=== PATIENT | female | born 1940 | race Caucasian/White ===

== ENCOUNTER → 2016-03-15 | Outpatient (CLI) | payer OTHER ==
[2016-03-15 13:05] LABS: DEFINITIVE VIEW TRANSMISSION; Hematocrit 39.3 % (36.0-46.0); Hemoglobin 12.7 g/dL (12.2-16.2); Mean Corpuscular Hemoglobin 29.7 pg (28.0-32.0); Mean Corpuscular Hgb Conc. 32.2 g/dL (32.0-36.0); Mean Corpuscular Volume 92.3 fL (80.0-100.0); Mean Platelet Volume 9.2 fL (7.4-10.4); Platelet Count (auto) 295 10^3/uL (140-450); Red Cell Distribution Width 15.2 % (11.6-16.0); White Blood Cell 22.4 10^3/uL (4.4-10.8)
[2016-03-15 13:17] LABS: Cholesterol 266 mg/dL (<200); HDL Cholesterol 98 mg/dL (40-59); LDL Cholesterol 160 mg/dL (<100); Triglycerides 150 mg/dL (<150)
[2016-03-15 13:38] LABS: Metamyelocytes % 0; Myelocytes % 0; Promyelocytes % 0; Reactive Lymphocytes 0
[2016-03-15 14:36] LABS: Platelet Estimate Adequate; RBC Morphology Normal
== END | disposition home or self-care (01) ==
LOC: LAB 12:24
PROVIDERS: ATTEND Internal Medicine
DX: Z00.00 Encounter for general adult medical examination without abnormal findings (principal)
CPT/HCPCS: 36415; 80061; 83615; 84443; 85007; 85027

== ENCOUNTER → 2016-03-22 | Outpatient (CLI) | payer OTHER | END | disposition home or self-care (01) | LOC: XY 07:42 | PROVIDERS: ATTEND Internal Medicine | DX: C50.919 Malignant neoplasm of unspecified site of unspecified female breast (principal) | CPT/HCPCS: 78306; A9503 ==

== ENCOUNTER 2016-05-11 19:35 | Emergency (ER) | payer MEDICARE, OTHER ==
[~2016-05-11] VITALS: Ht 165.1 cm; Wt 59.9 kg
[2016-05-12 01:00] LABS: Basophils # (auto) 0.1 uL; Basophils % (auto) 0.2 % (0.0-2.0); DEFINITIVE VIEW TRANSMISSION; Eosinophils # (auto) 0 uL; Hematocrit 42.9 % (36.0-46.0); Hemoglobin 14.2 g/dL (12.2-16.2); Lymphocytes # (auto) 18.3 uL; Lymphocytes % (auto) 54.9 % (10.0-50.0); Mean Corpuscular Hemoglobin 30.4 pg (28.0-32.0); Mean Corpuscular Hgb Conc. 33.2 g/dL (32.0-36.0); Mean Corpuscular Volume 91.8 fL (80.0-100.0); Mean Platelet Volume 9.2 fL (7.4-10.4); Monocytes # (auto) 0.8 uL; Monocytes % (auto) 2.4 % (0.0-12.0); Neutrophils # (auto) 14.2 uL; Neutrophils % (auto) 42.5 % (37.0-80.0); Platelet Count (auto) 319 10^3/uL (140-450); Red Cell Distribution Width 14.4 % (11.6-16.0)
[2016-05-12] MEDS ORDERED: ONDANSETRON HCL 4 MG/2 ML VIAL IV ONE (01:15)
[2016-05-12] MEDS ORDERED: HYDROcodone-ACET 5/325MG TAB PO ONE (01:15)
[2016-05-12 01:18] LABS: Albumin 3.1 g/dL (3.4-5.0); Calcium 8.7 mg/dL (8.5-10.1); Magnesium 1.8 mg/dL (1.6-2.6); Potassium 3.6 mmol/L (3.5-5.1)
[2016-05-12 01:20] LABS: BUN/Creatinine Ratio 17.4
[2016-05-12 01:21] LABS: White Blood Cell 33.3 10^3/uL (4.4-10.8)
[2016-05-12 01:22] LABS: Bilirubin, Total 0.2 mg/dL (0.2-1.0); Total Protein 6.1 g/dL (6.4-8.2)
[2016-05-12] MEDS ORDERED: MORPHINE SULF INJ 2 MG/ML SYRINGE 1ML ONE (01:24)
[2016-05-12] MEDS ORDERED: ONDANSETRON HCL 4 MG/2 ML VIAL ONE (01:24)
[2016-05-12] MEDS ORDERED: MORPHINE SULF INJ 2 MG/ML SYRINGE 1ML IV ONE (01:30)
[2016-05-12] MEDS ORDERED: LEVOFLOXACIN 750MG 150 ML IV ONE (01:45)
[2016-05-12 02:12] LABS: Urine Bilirubin Negative (Negative); Urine Ca Oxalate Crystal FEW (None Seen); Urine Color Yellow (Yellow); Urine Glucose Normal (Normal); Urine Hyaline Cast FEW /lpf (0 - 2); Urine Ketone Negative (Negative); Urine Mucus FEW (None Seen); Urine Nitrite Negative (Negative); Urine RBC 131 /hpf (0 - 4); Urine Squamous Epithelial Cell FEW /hpf (<5); Urine Urobilinogen Normal (Negative); Urine pH 5.5 (5.0-8.0)
[2016-05-12 02:14] LABS: Urine Blood 1+ /uL (Negative)
[2016-05-12] MEDS ORDERED: SODIUM CHLORIDE 0.9% 1,000 ML IV ONE (02:15)
[2016-05-12] MEDS ORDERED: VANCOMYCIN 1GM/250ML D5W 250 ML IV ONE (02:15)
[2016-05-12] MEDS ORDERED: TAMSULOSIN HYDROCHLORIDE 0.4 MG CAP PO ONE (03:00)
[2016-05-12] MEDS ORDERED: METOCLOPRAMIDE HCL 5MG/ml INJ 2ml VIAL IV ONE (03:00)
[2016-05-12] MEDS ORDERED: MORPHINE SULFATE 4 MG/ML SYRG IV ONE (03:15)
[2016-05-12 04:28] VITALS: BP 106/66
== END 2016-05-12 04:30 | disposition home or self-care (01) ==
LOC: ER 19:38
DX: N20.9 Urinary calculus, unspecified (principal); Z88.0 Allergy status to penicillin; Z88.6 Allergy status to analgesic agent; Z88.8 Allergy status to other drugs, medicaments and biological substances; Z87.442 Personal history of urinary calculi; Z90.710 Acquired absence of both cervix and uterus
CPT/HCPCS: 36415; 74176; 80053; 81001; 83605; 83690; 83735; 85025; 87040; 93005; 96365; 96375; 96376; 99285; J1956; J2270; J2405; J2765; J7030

== ENCOUNTER → 2016-05-26 | Outpatient (CLI) | payer OTHER, MEDICARE ==
[~2016-05-26] MED LIST: LEVO500T3 PO; NOR5T PO; PRAV20TA3 PO
== END | disposition home or self-care (01) ==
LOC: LAB 16:49
PROVIDERS: ATTEND Urology
DX: N20.0 Calculus of kidney (principal); N39.0 Urinary tract infection, site not specified
CPT/HCPCS: 87086

== ENCOUNTER → 2016-06-20 | Day surgery (SDC) | payer OTHER ==
[2016-06-17 15:03] LABS: INR 0.94 (0.9-1.15); Partial Thromboplastin Time 25.9 sec (22.64-33.71); Prothrombin Time 10.1 sec (9.37-12.3)
[2016-06-17 15:09] LABS: DEFINITIVE VIEW TRANSMISSION; Hematocrit 39.1 % (36.0-46.0); Hemoglobin 12.9 g/dL (12.2-16.2); Mean Corpuscular Hemoglobin 30.7 pg (28.0-32.0); Mean Corpuscular Hgb Conc. 33.1 g/dL (32.0-36.0); Mean Corpuscular Volume 92.6 fL (80.0-100.0); Mean Platelet Volume 9.9 fL (7.4-10.4); Platelet Count (auto) 313 10^3/uL (140-450); Red Cell Distribution Width 13.8 % (11.6-16.0); White Blood Cell 29.4 10^3/uL (4.4-10.8)
[2016-06-17 15:19] LABS: Metamyelocytes % 0; Myelocytes % 0; Promyelocytes % 0; Reactive Lymphocytes 0
[2016-06-17 16:44] LABS: Platelet Estimate Adequate
[2016-06-17 16:46] LABS: Ovalocytes FEW
[~2016-06-20] VITALS: Ht 165.1 cm; Wt 61.2 kg
[~2016-06-20] MED LIST changes: -LEVO500T3 PO; +MIDAZOLAM HCL 5 MG/ML-1ML VIAL ONE; -NOR5T PO; +POTA20TA53 PO; +SODIUM CHLORIDE LOCK 10 ML ONE; +diphenhdrAMINE HCL 50 MG/1 ML VL ONE; +fentaNYL CITRATE 100 MCG/2 ML VL ONE
[2016-06-20] MEDS: MIDAZOLAM HCL 5 MG/ML-1ML VIAL ONE ×4 (09:54→10:06)
[2016-06-20] MEDS: fentaNYL CITRATE 100 MCG/2 ML VL ONE ×4 (09:54→10:06)
[2016-06-20 11:05] VITALS: BP 121/72
== END | disposition home or self-care (01) ==
LOC: GI 08:19
PROVIDERS: ATTEND Internal Medicine Gastroenterology
DX: Z12.11 Encounter for screening for malignant neoplasm of colon (principal); K63.5 Polyp of colon; K64.8 Other hemorrhoids; Z86.010 Personal history of colon polyps; Z90.49 Acquired absence of other specified parts of digestive tract; Z90.710 Acquired absence of both cervix and uterus
CPT/HCPCS: 36415; 45380; 45385; 85007; 85027; 85610; 85730; J2250

== ENCOUNTER 2016-07-01 08:51 | Inpatient (IN) | payer OTHER ==
[~2016-07-01] VITALS: Ht 165.1 cm; Wt 65.0 kg
[~2016-07-01 08:51] MED LIST changes: -MIDAZOLAM HCL 5 MG/ML-1ML VIAL ONE; -SODIUM CHLORIDE LOCK 10 ML ONE; -diphenhdrAMINE HCL 50 MG/1 ML VL ONE; -fentaNYL CITRATE 100 MCG/2 ML VL ONE
[2016-07-01] MEDS ORDERED: SODIUM CHLORIDE 0.9% 1,000 ML IVB ONE (09:42)
[2016-07-01] MEDS ORDERED: ONDANSETRON HCL 4 MG/2 ML VIAL IV ONE (09:45)
[2016-07-01] MEDS ORDERED: MORPHINE SULFATE 4 MG/ML SYRG IV ONE ×2 (09:45→11:00)
[2016-07-01 10:09] LABS: DEFINITIVE VIEW TRANSMISSION; Hematocrit 40.3 % (36.0-46.0); Hemoglobin 13.2 g/dL (12.2-16.2); Mean Corpuscular Hemoglobin 30.1 pg (28.0-32.0); Mean Corpuscular Hgb Conc. 32.7 g/dL (32.0-36.0); Platelet Count (auto) 359 10^3/uL (140-450); Red Cell Distribution Width 13.7 % (11.6-16.0); White Blood Cell 27.3 10^3/uL (4.4-10.8)
[2016-07-01 10:23] LABS: Albumin 3.2 g/dL (3.4-5.0); BUN/Creatinine Ratio 17.9; Calcium 9.5 mg/dL (8.5-10.1); Potassium 3.3 mmol/L (3.5-5.1)
[2016-07-01 10:26] LABS: Bilirubin, Total 0.2 mg/dL (0.2-1.0); Metamyelocytes % 0; Myelocytes % 0; Promyelocytes % 0; Reactive Lymphocytes 0; Total Protein 6.7 g/dL (6.4-8.2)
[2016-07-01 10:45] LABS: Urine Bilirubin Negative (Negative); Urine Glucose Normal (Normal); Urine Ketone Negative (Negative); Urine Nitrite Negative (Negative); Urine RBC 3871 /hpf (0 - 4); Urine Squamous Epithelial Cell FEW /hpf (<5); Urine Urobilinogen Normal (Negative)
[2016-07-01 10:46] LABS: Urine Blood 3+ /uL (Negative)
[2016-07-01 10:47] LABS: Urine Color Dark Brown (Yellow)
[2016-07-01] MEDS ORDERED: NITROGLYCERIN 0.4 MG SL TAB SL PRN (11:00)
[2016-07-01] MEDS ORDERED: LORazepam 0.5 MG TAB PO PRN (11:00)
[2016-07-01] MEDS ORDERED: ACETAMINOPHEN 500 MG TAB PO PRN (11:00)
[2016-07-01] MEDS ORDERED: cefTRIAXone 1GM/50ML D5W 50 ML IV ONE (11:00)
[2016-07-01] MEDS ORDERED: MORPHINE SULF INJ 2 MG/ML SYRINGE 1ML IV PRN (11:00)
[2016-07-01] MEDS ORDERED: PROCHLORPERAZINE EDISYLATE 5 MG/ML 2ML VIAL IV PRN (11:00)
[2016-07-01] MEDS: SOD CHL 0.9%/ KCL 20MEQ 1,000 ML IV SCH ×2 (11:22→19:20)
[2016-07-01] MEDS ORDERED: SODIUM CHLORIDE 0.9% 1,000 ML IV ONE (12:00)
[2016-07-01] MEDS: HYDROcodone-ACET 5/325MG TAB PO PRN (12:28)
[2016-07-01] MEDS ORDERED: NOR5T PO (13:38)
[2016-07-01 13:45] LABS: Platelet Estimate Adequate
[2016-07-01 13:47] LABS: Ovalocytes FEW
[2016-07-01] MEDS: MORPHINE SULF INJ 2 MG/ML SYRINGE 1ML IV PRN ×2 (15:16→19:56)
[2016-07-01 21:35] VITALS: BP 90/40
[2016-07-01] MEDS: TEMAZEPAM 15 MG CAP PO PRN (22:00)
[2016-07-02] MEDS: SOD CHL 0.9%/ KCL 20MEQ 1,000 ML IV SCH ×3 (00:43→20:20)
[2016-07-02] MEDS: MORPHINE SULF INJ 2 MG/ML SYRINGE 1ML IV PRN ×3 (04:23→14:19)
[2016-07-02 04:43] VITALS: BP 89/53
[2016-07-02 04:59] VITALS: BP 104/39
[2016-07-02 06:39] LABS: DEFINITIVE VIEW TRANSMISSION; Hematocrit 34.9 % (36.0-46.0); Hemoglobin 11.4 g/dL (12.2-16.2); Mean Corpuscular Hemoglobin 30.3 pg (28.0-32.0); Mean Corpuscular Hgb Conc. 32.6 g/dL (32.0-36.0); Mean Corpuscular Volume 92.8 fL (80.0-100.0); Mean Platelet Volume 9.9 fL (7.4-10.4); Platelet Count (auto) 328 10^3/uL (140-450); White Blood Cell 20.5 10^3/uL (4.4-10.8)
[2016-07-02 06:43] LABS: Metamyelocytes % 0; Myelocytes % 0; Promyelocytes % 0; Reactive Lymphocytes 0
[2016-07-02 06:57] LABS: INR 0.93 (0.9-1.15); Partial Thromboplastin Time 25.9 sec (22.64-33.71)
[2016-07-02 06:58] LABS: Albumin 2.5 g/dL (3.4-5.0); BUN/Creatinine Ratio 19.1; Calcium 8.3 mg/dL (8.5-10.1); Potassium 4.3 mmol/L (3.5-5.1)
[2016-07-02 07:01] LABS: Bilirubin, Total 0.3 mg/dL (0.2-1.0); Total Protein 5.5 g/dL (6.4-8.2)
[2016-07-02] MEDS ORDERED: LIDOCAINE 2% JELLY 11ml (GLYDO) ONE (07:01)
[2016-07-02] MEDS ORDERED: IOHEXOL 300 MG/ML 100ML BOTTLE IJ ONE (07:01)
[2016-07-02 07:35] LABS: Platelet Estimate Adequate
[2016-07-02] MEDS ORDERED: fentaNYL CITRATE 100 MCG/2 ML VL ONE (07:40)
[2016-07-02] MEDS ORDERED: DEXAMETHASONE SOD PHOS 10MG/1ML VIAL INJ ONE (07:41)
[2016-07-02] MEDS ORDERED: MIDAZOLAM HCL 1MG/1ML-2 ML VIAL ONE (07:41)
[2016-07-02] MEDS ORDERED: PROPOFOL 10 MG/ML 20 ML IV ONE (07:41)
[2016-07-02] MEDS ORDERED: ONDANSETRON HCL 4 MG/2 ML VIAL ONE (07:41)
[2016-07-02] MEDS ORDERED: KETOROLAC TROMETH 60MG/2ML VIAL IM ONE (07:41)
[2016-07-02] MEDS ORDERED: GLYCOPYRROLATE 0.2 MG/ML 1ML VIAL ONE (07:41)
[2016-07-02] MEDS ORDERED: CLINDAMYCIN 600MG IV 50 ML IV ONE (07:42)
[2016-07-02] MEDS ORDERED: LIDOCAINE HCL 2 %PF INJ 10ML AMP IJ ONE (07:42)
[2016-07-02] MEDS ORDERED: ONDANSETRON HCL 4 MG/2 ML VIAL IV ONE (08:45)
[2016-07-02] MEDS ORDERED: HYDROmorphone HCL 2 MG/ML VL IV PRN (08:45)
[2016-07-02] MEDS: ENOXAPARIN SOD 40 MG/0.4 ML SYRINGE SC SCH (10:15)
[2016-07-02] MEDS: cefTRIAXone 1GM/50ML D5W 50 ML IV SCH (10:15)
[2016-07-02 13:00] VITALS: BP 103/59
[2016-07-02 16:33] VITALS: BP 106/62
[2016-07-02] MEDS: BOOST PLUS 8 ounce PO SCH ×2 (18:16→22:00)
[2016-07-02] MEDS: HYDROcodone-ACET 5/325MG TAB PO PRN (18:57)
[2016-07-02 21:33] VITALS: BP 91/51
[2016-07-02] MEDS: TEMAZEPAM 15 MG CAP PO PRN (22:25)
[2016-07-03] MEDS: HYDROcodone-ACET 5/325MG TAB PO PRN ×3 (01:01→14:30)
[2016-07-03] MEDS: SOD CHL 0.9%/ KCL 20MEQ 1,000 ML IV SCH ×2 (01:01→12:55)
[2016-07-03 05:03] VITALS: BP 99/63
[2016-07-03] MEDS: MORPHINE SULF INJ 2 MG/ML SYRINGE 1ML IV PRN (05:27)
[2016-07-03] MEDS: BOOST PLUS 8 ounce PO SCH ×2 (05:27→12:50)
[2016-07-03 05:28] LABS: DEFINITIVE VIEW TRANSMISSION; Hematocrit 31.5 % (36.0-46.0); Hemoglobin 10.3 g/dL (12.2-16.2); Mean Corpuscular Hemoglobin 30.3 pg (28.0-32.0); Mean Corpuscular Hgb Conc. 32.7 g/dL (32.0-36.0); Mean Corpuscular Volume 92.6 fL (80.0-100.0); Mean Platelet Volume 9.7 fL (7.4-10.4); Platelet Count (auto) 299 10^3/uL (140-450); Red Cell Distribution Width 14.4 % (11.6-16.0)
[2016-07-03 05:47] LABS: Albumin 2.2 g/dL (3.4-5.0); Calcium 8.3 mg/dL (8.5-10.1); Potassium 4.5 mmol/L (3.5-5.1)
[2016-07-03 05:50] LABS: Bilirubin, Total 0.2 mg/dL (0.2-1.0); Total Protein 4.8 g/dL (6.4-8.2)
[2016-07-03 05:52] LABS: Metamyelocytes % 0; Myelocytes % 0; Promyelocytes % 0; Reactive Lymphocytes 0
[2016-07-03 07:17] LABS: Platelet Estimate Adequate
[2016-07-03 07:30] VITALS: BP 109/66
[2016-07-03] MEDS: ENOXAPARIN SOD 40 MG/0.4 ML SYRINGE SC SCH (09:07)
[2016-07-03] MEDS: cefTRIAXone 1GM/50ML D5W 50 ML IV SCH (09:07)
[2016-07-03 10:00] VITALS: BP 109/66
[2016-07-03 13:00] VITALS: BP 104/51
[2016-07-05] MEDS ORDERED: CEPH250C PO (13:28)
== END 2016-07-03 15:15 | disposition home or self-care (01) | DRG 693 ==
LOC: ER 08:56 → TELE 08:57 → TELE-WESTW 12:55
PROVIDERS: ADMIT Internal Medicine; ATTEND Internal Medicine
PROC: 0T768DZ Dilation of Right Ureter with Intraluminal Device, Via Natural or Artificial Opening Endoscopic (ICD-10-PCS; principal; 2016-07-02 07:48)
DX: N13.2 Hydronephrosis with renal and ureteral calculous obstruction (principal); E43 Unspecified severe protein-calorie malnutrition; N39.0 Urinary tract infection, site not specified; Z96.0 Presence of urogenital implants; Z68.23 Body mass index [BMI] 23.0-23.9, adult; Z80.0 Family history of malignant neoplasm of digestive organs; Z80.41 Family history of malignant neoplasm of ovary; Z82.49 Family history of ischemic heart disease and other diseases of the circulatory system; Z85.3 Personal history of malignant neoplasm of breast; Z85.6 Personal history of leukemia; Z86.010 Personal history of colon polyps; Z88.6 Allergy status to analgesic agent; Z88.0 Allergy status to penicillin; Z90.710 Acquired absence of both cervix and uterus; Z90.89 Acquired absence of other organs; Z90.49 Acquired absence of other specified parts of digestive tract; Z79.899 Other long term (current) drug therapy
CPT/HCPCS: 36415; 71010; 74000; 74176; 76000; 76775; 80053; 81001; 83605; 85007; 85027; 85610; 85730; 87040; 87086; 93005; 94761; 96361; 96374; 96375; J0696; J1100; J1885; J2250; J2405; J2704; J3490

== ENCOUNTER 2016-07-07 07:34 | Day surgery (SDC) | payer OTHER ==
[2016-07-05 16:48] LABS: Calcium 8.9 mg/dL (8.5-10.1); Potassium 3.3 mmol/L (3.5-5.1)
[2016-07-05 16:51] LABS: BUN/Creatinine Ratio 17.5; Bilirubin, Total 0.2 mg/dL (0.2-1.0); Total Protein 6.2 g/dL (6.4-8.2)
[2016-07-05 16:53] LABS: INR 0.97 (0.9-1.15); Partial Thromboplastin Time 26.3 sec (22.64-33.71); Prothrombin Time 10.5 sec (9.37-12.3)
[2016-07-05 16:59] LABS: Urine Bilirubin Negative (Negative); Urine Color Red (Yellow); Urine Glucose Normal (Normal); Urine Ketone Negative (Negative); Urine Mucus FEW (None Seen); Urine Nitrite Negative (Negative); Urine RBC 2245 /hpf (0 - 4); Urine Urobilinogen Normal (Negative)
[2016-07-05 17:06] LABS: DEFINITIVE VIEW TRANSMISSION; Hematocrit 38.6 % (36.0-46.0); Hemoglobin 12.7 g/dL (12.2-16.2); Mean Corpuscular Hemoglobin 30.4 pg (28.0-32.0); Mean Corpuscular Volume 92.3 fL (80.0-100.0); Mean Platelet Volume 10.3 fL (7.4-10.4); Platelet Count (auto) 395 10^3/uL (140-450); Red Cell Distribution Width 14.1 % (11.6-16.0); White Blood Cell 22.4 10^3/uL (4.4-10.8)
[2016-07-05 17:13] LABS: Metamyelocytes % 0; Myelocytes % 0; Promyelocytes % 0; Reactive Lymphocytes 0
[2016-07-05 17:26] LABS: Urine Blood 3+ /uL (Negative)
[2016-07-05 18:08] LABS: Platelet Estimate Adequate
[~2016-07-07] VITALS: Ht 165.1 cm; Wt 61.2 kg
[~2016-07-07 07:34] MED LIST changes: +CEPH250C PO; +HYDR-4663 PO
[2016-07-07] MEDS ORDERED: CIPROFLOXACIN 400MG/200ML 200 ML IV ONE (08:34)
[2016-07-07] MEDS ORDERED: IOHEXOL 300 MG/ML 100ML BOTTLE IJ ONE (09:34)
[2016-07-07] MEDS ORDERED: PROPOFOL 10 MG/ML 20 ML IV ONE (09:45)
[2016-07-07] MEDS ORDERED: MIDAZOLAM HCL 1MG/1ML-2 ML VIAL ONE (09:45)
[2016-07-07] MEDS ORDERED: fentaNYL CITRATE 100 MCG/2 ML VL ONE (09:45)
[2016-07-07] MEDS ORDERED: ePHEDrine SULFATE 50 MG/ML AMP IV PRN (11:45)
[2016-07-07] MEDS ORDERED: hydrALAZINE HCL 20 MG/ML VL IV PRN (11:45)
[2016-07-07] MEDS ORDERED: ONDANSETRON HCL 4 MG/2 ML VIAL IV ONE (11:45)
[2016-07-07] MEDS: MORPHINE SULF INJ 2 MG/ML SYRINGE 1ML IV PRN ×5 (11:49→13:11)
[2016-07-07 13:40] VITALS: BP 120/71
== END 2016-07-07 13:40 | disposition home or self-care (01) ==
LOC: SUR 07:34
PROVIDERS: ATTEND Urology
DX: N20.1 Calculus of ureter (principal); C50.919 Malignant neoplasm of unspecified site of unspecified female breast; Z90.710 Acquired absence of both cervix and uterus; Z90.49 Acquired absence of other specified parts of digestive tract
CPT/HCPCS: 36415; 50590; 52356; 74000; 80053; 81001; 85007; 85027; 85610; 85730; 88300; C1769; C2617; J0744; J2250; J2270; J2704; J3010; J7030; Q9967

== ENCOUNTER → 2016-07-26 | Outpatient (CLI) | payer OTHER ==
[~2016-07-26] MED LIST changes: -HYDR-4663 PO; +NOR5T PO
[2016-07-26 10:11] LABS: DEFINITIVE VIEW TRANSMISSION; Hemoglobin 12.8 g/dL (12.2-16.2); Mean Corpuscular Hemoglobin 30.2 pg (28.0-32.0); Mean Corpuscular Hgb Conc. 32.9 g/dL (32.0-36.0); Mean Corpuscular Volume 91.7 fL (80.0-100.0); Mean Platelet Volume 9.7 fL (7.4-10.4); Platelet Count (auto) 405 10^3/uL (140-450); Red Cell Distribution Width 14.4 % (11.6-16.0); White Blood Cell 26.2 10^3/uL (4.4-10.8)
[2016-07-26 10:17] LABS: Urine Color Brown (Yellow); Urine Glucose TRACE mg/dL (Normal); Urine Ketone Negative (Negative); Urine Mucus FEW (None Seen); Urine RBC 2288 /hpf (0 - 4); Urine Squamous Epithelial Cell FEW /hpf (<5)
[2016-07-26 10:24] LABS: Metamyelocytes % 0; Myelocytes % 0; Promyelocytes % 0; Reactive Lymphocytes 0
[2016-07-26 10:56] LABS: Urine Bilirubin 2+ (Negative); Urine Blood 2+ /uL (Negative); Urine Nitrite POSITIVE (Negative)
[2016-07-26 11:21] LABS: Platelet Estimate Adequate; RBC Morphology Normal
== END | disposition home or self-care (01) ==
LOC: LAB 09:14
PROVIDERS: ATTEND Internal Medicine
DX: Z00.00 Encounter for general adult medical examination without abnormal findings (principal); N20.0 Calculus of kidney
CPT/HCPCS: 36415; 81001; 85007; 85027

== ENCOUNTER → 2016-08-01 | Outpatient (CLI) | payer OTHER | END | disposition home or self-care (01) | LOC: LAB 11:00 | PROVIDERS: ATTEND Physician Assistant | DX: L82.1 Other seborrheic keratosis (principal) ==

== ENCOUNTER → 2016-10-12 | Outpatient (CLI) | payer OTHER ==
[~2016-10-12] MED LIST changes: +HYDR-4663 PO; -NOR5T PO
== END | disposition home or self-care (01) ==
LOC: LAB 09:25
DX: C90.00 Multiple myeloma not having achieved remission (principal); M10.00 Idiopathic gout, unspecified site; D64.9 Anemia, unspecified; E03.9 Hypothyroidism, unspecified; E55.9 Vitamin D deficiency, unspecified; M81.0 Age-related osteoporosis without current pathological fracture; M25.50 Pain in unspecified joint; I10 Essential (primary) hypertension
CPT/HCPCS: 36415; 82306; 82784; 83970; 84155; 84156; 84165; 84166; 84550; 86334; 86335

== ENCOUNTER → 2016-10-31 | Outpatient (CLI) | payer OTHER ==
[2016-10-31 14:46] LABS: CONDITION Y; DEFINITIVE SEE PRINTOUT; Hematocrit 39.3 % (36.0-46.0); Hemoglobin 13.3 g/dL (12.2-16.2); Mean Corpuscular Hemoglobin 30.6 pg (28.0-32.0); Mean Corpuscular Hgb Conc. 33.7 g/dL (32.0-36.0); Mean Corpuscular Volume 90.8 fL (80.0-100.0); Mean Platelet Volume 10.4 fL (7.4-10.4); Platelet Count (auto) 322 10^3/uL (140-450); White Blood Cell 27.2 10^3/uL (4.4-10.8)
[2016-10-31 14:51] LABS: Metamyelocytes % 0; Myelocytes % 0; Promyelocytes % 0; Reactive Lymphocytes 0
[2016-10-31 15:03] LABS: Albumin 3.2 g/dL (3.4-5.0); Bilirubin, Total 0.2 mg/dL (0.2-1.0); Calcium 9.3 mg/dL (8.5-10.1); Total Protein 6.4 g/dL (6.4-8.2)
[2016-10-31 15:29] LABS: Potassium 2.5 mmol/L (3.5-5.1)
[2016-10-31 15:32] LABS: Platelet Estimate Adequate
== END | disposition home or self-care (01) ==
LOC: LAB 14:06
PROVIDERS: ATTEND Internal Medicine
DX: D64.81 Anemia due to antineoplastic chemotherapy (principal); N20.0 Calculus of kidney; Z85.3 Personal history of malignant neoplasm of breast; Z90.710 Acquired absence of both cervix and uterus
CPT/HCPCS: 36415; 80053; 83615; 85007; 85027; 86300

== ENCOUNTER → 2016-11-16 | Outpatient (CLI) | payer OTHER ==
[2016-11-16 12:51] LABS: Magnesium 2.1 mg/dL (1.6-2.6)
[2016-11-16 13:22] LABS: Potassium 2.5 mmol/L (3.5-5.1)
== END | disposition home or self-care (01) ==
LOC: LAB 10:54
PROVIDERS: ATTEND Internal Medicine
DX: C50.912 Malignant neoplasm of unspecified site of left female breast (principal); C91.10 Chronic lymphocytic leukemia of B-cell type not having achieved remission; N20.0 Calculus of kidney
CPT/HCPCS: 36415; 83735; 84132

== ENCOUNTER → 2016-11-17 | Outpatient (CLI) | payer OTHER ==
[2016-11-17 15:26] LABS: Calcium 9.2 mg/dL (8.5-10.1)
[2016-11-17 15:38] LABS: Potassium 2.6 mmol/L (3.5-5.1)
[2016-11-17 15:42] LABS: Urine Bilirubin Negative (Negative); Urine Blood 3+ /uL (Negative); Urine Color Yellow (Yellow); Urine Glucose Normal (Normal); Urine Hyaline Cast FEW /lpf (0 - 2); Urine Ketone TRACE (Negative); Urine Mucus FEW (None Seen); Urine Nitrite Negative (Negative); Urine RBC 875 /hpf (0 - 4); Urine Squamous Epithelial Cell FEW /hpf (<5); Urine Urobilinogen Normal (Negative)
== END | disposition home or self-care (01) ==
LOC: LAB 14:46
PROVIDERS: ATTEND Internal Medicine
DX: E78.4 Other hyperlipidemia (principal); C91.10 Chronic lymphocytic leukemia of B-cell type not having achieved remission
CPT/HCPCS: 36415; 80048; 81001

== ENCOUNTER → 2016-11-21 | Outpatient (CLI) | payer OTHER ==
[2016-11-21 13:47] LABS: Potassium Urine 24 hr 8 mmol/24h (25.0-125.0)
== END | disposition home or self-care (01) ==
LOC: LAB 12:43
PROVIDERS: ATTEND Internal Medicine
DX: C91.10 Chronic lymphocytic leukemia of B-cell type not having achieved remission (principal); E87.6 Hypokalemia
CPT/HCPCS: 82436; 82570; 84133; 84300

== ENCOUNTER → 2016-11-29 | Outpatient (CLI) | payer OTHER ==
[2016-11-29 10:24] LABS: Calcium 9.2 mg/dL (8.5-10.1)
[2016-11-29 11:07] LABS: Potassium 2.3 mmol/L (3.5-5.1)
== END | disposition home or self-care (01) ==
LOC: LAB 09:34
PROVIDERS: ATTEND Internal Medicine
DX: E87.6 Hypokalemia (principal)
CPT/HCPCS: 36415; 80048

== ENCOUNTER → 2016-12-19 | Outpatient (CLI) | payer OTHER | END | disposition home or self-care (01) | LOC: LAB 10:31 | PROVIDERS: ATTEND Internal Medicine | DX: E03.9 Hypothyroidism, unspecified (principal) | CPT/HCPCS: 36415; 84132 ==

== ENCOUNTER → 2017-01-02 | Outpatient (CLI) | payer OTHER ==
[~2017-01-02] MED LIST changes: -HYDR-4663 PO; +HYDR-4683 PO
== END | disposition home or self-care (01) ==
LOC: LAB 09:10
PROVIDERS: ATTEND Physician Assistant
DX: L98.8 Other specified disorders of the skin and subcutaneous tissue (principal)

== ENCOUNTER → 2017-01-30 | Outpatient (CLI) | payer OTHER | END | disposition home or self-care (01) | LOC: LAB 10:27 | PROVIDERS: ATTEND Physician Assistant | DX: E87.6 Hypokalemia (principal) | CPT/HCPCS: 36415; 84132 ==

== ENCOUNTER → 2017-02-21 | Outpatient (CLI) | payer OTHER ==
[2017-02-21 10:31] LABS: Urine RBC None Seen /hpf (0 - 4)
[2017-02-21 10:39] LABS: Hematocrit 39.8 % (36.0-46.0); Hemoglobin 13.2 g/dL (12.2-16.2); Mean Corpuscular Hemoglobin 30.4 pg (28.0-32.0); Mean Corpuscular Hgb Conc. 33.2 g/dL (32.0-36.0); Mean Corpuscular Volume 91.5 fL (80.0-100.0); Mean Platelet Volume 9.2 fL (6.9-10.8); Platelet Count (auto) 339 10^3/uL (140-450); Red Cell Distribution Width 14.3 % (11.8-14.3); White Blood Cell 28.9 10^3/uL (4.4-10.8)
[2017-02-21 10:41] LABS: Metamyelocytes % 0; Myelocytes % 0; Promyelocytes % 0; Reactive Lymphocytes 0
[2017-02-21 10:56] LABS: Urine Bilirubin Negative (Negative); Urine Blood Negative /uL (Negative); Urine Ca Oxalate Crystal MANY (None Seen); Urine Color Yellow (Yellow); Urine Glucose Normal (Normal); Urine Hyaline Cast FEW /lpf (0 - 2); Urine Ketone Negative (Negative); Urine Mucus FEW (None Seen); Urine Nitrite Negative (Negative); Urine Squamous Epithelial Cell FEW /hpf (<5); Urine Urobilinogen Normal (Negative)
[2017-02-21 11:01] LABS: Albumin 3.1 g/dL (3.4-5.0); Calcium 8.9 mg/dL (8.5-10.1); Phosphorus 3.2 mg/dL (2.5-4.90)
[2017-02-21 11:03] LABS: Urine Protein/Creatinine Ratio 0.18
[2017-02-21 11:05] LABS: Potassium 2.7 mmol/L (3.5-5.1)
[2017-02-21 14:08] LABS: Platelet Estimate Adequate
== END | disposition home or self-care (01) ==
LOC: LAB 09:40
PROVIDERS: ATTEND Family Medicine
DX: N18.3 Chronic kidney disease, stage 3 (moderate) (principal); D63.1 Anemia in chronic kidney disease; M10.9 Gout, unspecified; R80.9 Proteinuria, unspecified
CPT/HCPCS: 36415; 80069; 81001; 82306; 82570; 83970; 84156; 84550; 85007; 85027

== ENCOUNTER → 2017-03-01 | Outpatient (CLI) | payer OTHER | END | disposition home or self-care (01) | LOC: LAB 11:28 | PROVIDERS: ATTEND Internal Medicine | DX: N39.0 Urinary tract infection, site not specified (principal) | CPT/HCPCS: 87086 ==

== ENCOUNTER → 2017-03-24 | Outpatient (CLI) | payer OTHER | END | disposition home or self-care (01) | LOC: LAB 06:58 | PROVIDERS: ATTEND Urology | DX: N39.0 Urinary tract infection, site not specified (principal); N20.0 Calculus of kidney | CPT/HCPCS: 87086 ==

== ENCOUNTER → 2017-03-27 | Outpatient (CLI) | payer OTHER ==
[2017-03-27 10:52] LABS: Hematocrit 42.7 % (36.0-46.0); Hemoglobin 13.8 g/dL (12.2-16.2); Mean Corpuscular Hemoglobin 29.6 pg (28.0-32.0); Mean Corpuscular Hgb Conc. 32.3 g/dL (32.0-36.0); Mean Corpuscular Volume 91.6 fL (80.0-100.0); Platelet Count (auto) 340 10^3/uL (140-450); Red Blood Cells 4.66 10^6/uL (4.0-5.20); White Blood Cell 24.6 10^3/uL (4.4-10.8)
[2017-03-27 11:00] LABS: Band Neutrophils % (manual) 0; Eosinophils % (manual) 0 (0-7)
[2017-03-27 11:01] LABS: Basophils % (manual) 0 (0.0-2.0); Blast Cells 0; Metamyelocytes % 0; Myelocytes % 0; Promyelocytes % 0; Reactive Lymphocytes 0
[2017-03-27 11:11] LABS: Albumin 3.2 g/dL (3.4-5.0); BUN/Creatinine Ratio 16.8; Bilirubin, Total 0.5 mg/dL (0.2-1.0); Calcium 9.6 mg/dL (8.5-10.1); Potassium 3.4 mmol/L (3.5-5.1); Total Protein 7.2 g/dL (6.4-8.2)
[2017-03-27 11:20] LABS: Lymphocytes % (manual) 68 (10.0-50.0); Monocytes % (manual) 2 (0-12)
== END | disposition home or self-care (01) ==
LOC: LAB 09:48
PROVIDERS: ATTEND Physician Assistant
DX: E87.6 Hypokalemia (principal); C91.10 Chronic lymphocytic leukemia of B-cell type not having achieved remission; E78.2 Mixed hyperlipidemia; N13.30 Unspecified hydronephrosis
CPT/HCPCS: 36415; 80053; 80061; 85007; 85027

== ENCOUNTER → 2017-04-13 | Outpatient (CLI) | payer OTHER ==
[2017-04-13 14:54] LABS: Hematocrit 39.8 % (36.0-46.0); Hemoglobin 12.9 g/dL (12.2-16.2); Mean Corpuscular Hemoglobin 29.7 pg (28.0-32.0); Mean Corpuscular Hgb Conc. 32.5 g/dL (32.0-36.0); Mean Corpuscular Volume 91.4 fL (80.0-100.0); Platelet Count (auto) 376 10^3/uL (140-450); Red Blood Cells 4.36 10^6/uL (4.0-5.20); Red Cell Distribution Width 14.6 % (11.8-14.3); White Blood Cell 25.2 10^3/uL (4.4-10.8)
[2017-04-13 15:21] LABS: Basophils % (manual) 0 (0.0-2.0); Blast Cells 0; Eosinophils % (manual) 0 (0-7); Metamyelocytes % 0; Myelocytes % 0; Promyelocytes % 0
[2017-04-13 15:45] LABS: Albumin 3.2 g/dL (3.4-5.0); BUN/Creatinine Ratio 17.5; Bilirubin, Total 0.4 mg/dL (0.2-1.0); Calcium 9.8 mg/dL (8.5-10.1); Potassium 3.6 mmol/L (3.5-5.1); Total Protein 7.2 g/dL (6.4-8.2)
[2017-04-13 19:57] LABS: Band Neutrophils % (manual) 2; Lymphocytes % (manual) 62 (10.0-50.0); Monocytes % (manual) 8 (0-12); Reactive Lymphocytes 6
== END | disposition home or self-care (01) ==
LOC: LAB 14:34
PROVIDERS: ATTEND Internal Medicine
DX: C91.10 Chronic lymphocytic leukemia of B-cell type not having achieved remission (principal)
CPT/HCPCS: 36415; 80053; 83615; 85007; 85027; 86300

== ENCOUNTER 2017-04-17 17:26 | Emergency (ER) | payer MEDICARE, OTHER ==
[~2017-04-17] VITALS: Ht 162.6 cm; Wt 59.9 kg
[2017-04-17 19:13] LABS: Hematocrit 38.5 % (36.0-46.0); Hemoglobin 12.6 g/dL (12.2-16.2); Mean Corpuscular Hemoglobin 30.1 pg (28.0-32.0); Mean Corpuscular Hgb Conc. 32.7 g/dL (32.0-36.0); Mean Corpuscular Volume 91.8 fL (80.0-100.0); Platelet Count (auto) 338 10^3/uL (140-450); Red Blood Cells 4.19 10^6/uL (4.0-5.20); Red Cell Distribution Width 14.2 % (11.8-14.3); White Blood Cell 25.5 10^3/uL (4.4-10.8)
[2017-04-17 19:15] LABS: Band Neutrophils % (manual) 0; Basophils % (manual) 0 (0.0-2.0); Blast Cells 0; Eosinophils % (manual) 0 (0-7); Metamyelocytes % 0; Myelocytes % 0; Promyelocytes % 0; Reactive Lymphocytes 0
[2017-04-17 19:24] LABS: Lymphocytes % (manual) 74 (10.0-50.0); Monocytes % (manual) 3 (0-12)
[2017-04-17 19:30] LABS: Albumin 3.1 g/dL (3.4-5.0); BUN/Creatinine Ratio 19.3; Calcium 9.7 mg/dL (8.5-10.1); Potassium 3.8 mmol/L (3.5-5.1)
[2017-04-17 19:33] LABS: Bilirubin, Total 0.2 mg/dL (0.2-1.0); Total Protein 6.8 g/dL (6.4-8.2)
[2017-04-17 20:33] VITALS: BP 118/70
== END 2017-04-17 20:46 | disposition home or self-care (01) ==
LOC: ER 17:26
DX: E16.2 Hypoglycemia, unspecified (principal); Z90.710 Acquired absence of both cervix and uterus; Z90.49 Acquired absence of other specified parts of digestive tract; Z88.0 Allergy status to penicillin; Z88.5 Allergy status to narcotic agent; Z88.8 Allergy status to other drugs, medicaments and biological substances; Z79.899 Other long term (current) drug therapy; Z79.891 Long term (current) use of opiate analgesic; Z79.2 Long term (current) use of antibiotics
CPT/HCPCS: 36415; 80053; 82962; 85007; 85027

== ENCOUNTER 2017-04-18 08:40 | Day surgery (SDC) | payer OTHER ==
[2017-04-17 15:40] LABS: Hematocrit 39.5 % (36.0-46.0); Hemoglobin 12.7 g/dL (12.2-16.2); Mean Corpuscular Hemoglobin 29.8 pg (28.0-32.0); Mean Corpuscular Volume 93.1 fL (80.0-100.0); Platelet Count (auto) 351 10^3/uL (140-450); Red Blood Cells 4.25 10^6/uL (4.0-5.20); Red Cell Distribution Width 14.5 % (11.8-14.3); White Blood Cell 25.2 10^3/uL (4.4-10.8)
[2017-04-17 15:53] LABS: INR 0.91 (0.9-1.15); Partial Thromboplastin Time 26.1 sec (22.64-33.71); Prothrombin Time 9.9 sec (9.37-12.3)
[2017-04-17 15:58] LABS: Urine Bacteria NONE SEEN /hpf (None Seen); Urine Blood Negative /uL (Negative); Urine Hyaline Cast FEW /lpf (0 - 2); Urine Specific Gravity 1.026 (1.001-1.035); Urine WBC 11 /hpf (0 - 5)
[2017-04-17 16:00] LABS: BUN/Creatinine Ratio 18.9; Bilirubin, Total 0.3 mg/dL (0.2-1.0); Calcium 9.6 mg/dL (8.5-10.1); Potassium 3.9 mmol/L (3.5-5.1); Total Protein 6.9 g/dL (6.4-8.2)
[2017-04-17 16:47] LABS: Band Neutrophils % (manual) 0; Basophils % (manual) 0 (0.0-2.0); Blast Cells 0; Eosinophils % (manual) 0 (0-7); Metamyelocytes % 0; Myelocytes % 0; Promyelocytes % 0; Reactive Lymphocytes 0
[2017-04-17 17:29] LABS: Lymphocytes % (manual) 78 (10.0-50.0); Monocytes % (manual) 2 (0-12)
[~2017-04-18] VITALS: Ht 162.6 cm; Wt 59.9 kg
[2017-04-18] MEDS ORDERED: CIPROFLOXACIN 400MG/200ML 200 ML IV ONE (09:33)
[2017-04-18] MEDS ORDERED: fentaNYL CITRATE 100 MCG/2 ML VL ONE (11:41)
[2017-04-18] MEDS ORDERED: MIDAZOLAM HCL 1MG/1ML-2 ML VIAL ONE (11:41)
[2017-04-18] MEDS ORDERED: PROPOFOL 10 MG/ML 20 ML IV ONE (11:42)
[2017-04-18] MEDS ORDERED: IOHEXOL 300 MG/ML 100ML BOTTLE IJ ONE (11:58)
[2017-04-18] MEDS ORDERED: MORPHINE SULFATE 4 MG/ML SYR/VIAL IV PRN (14:15)
[2017-04-18] MEDS ORDERED: ePHEDrine SULFATE 50 MG/ML AMP IV PRN (14:15)
[2017-04-18] MEDS ORDERED: ONDANSETRON HCL 4 MG/2 ML VIAL IV ONE (14:15)
[2017-04-18] MEDS ORDERED: hydrALAZINE HCL 20 MG/ML VL IV PRN (14:15)
[2017-04-18 14:45] VITALS: BP 121/71
== END 2017-04-18 15:00 | disposition home or self-care (01) ==
LOC: SUR 08:40
PROVIDERS: ATTEND Urology
DX: N13.2 Hydronephrosis with renal and ureteral calculous obstruction (principal); Z88.6 Allergy status to analgesic agent; Z88.0 Allergy status to penicillin; Z88.8 Allergy status to other drugs, medicaments and biological substances; E66.9 Obesity, unspecified; Z68.22 Body mass index [BMI] 22.0-22.9, adult; C50.919 Malignant neoplasm of unspecified site of unspecified female breast; Z90.710 Acquired absence of both cervix and uterus; Z90.49 Acquired absence of other specified parts of digestive tract; Z90.10 Acquired absence of unspecified breast and nipple; K21.9 Gastro-esophageal reflux disease without esophagitis; E78.5 Hyperlipidemia, unspecified; C91.10 Chronic lymphocytic leukemia of B-cell type not having achieved remission; D69.6 Thrombocytopenia, unspecified
CPT/HCPCS: 36415; 50590; 52332; 80053; 81001; 82962; 85007; 85027; 85610; 85730; C1758; C1769; C2617; J0744; J2250; J2704; J3010; J7030; Q9967

== ENCOUNTER → 2017-04-20 | Outpatient (CLI) | payer MEDICARE, OTHER ==
[~2017-04-20] MED LIST changes: -CEPH250C PO; -HYDR-4683 PO
== END | disposition home or self-care (01) ==
LOC: LAB 10:00
PROVIDERS: ATTEND Urology
DX: N20.0 Calculus of kidney (principal)

== ENCOUNTER → 2017-05-25 | Outpatient (CLI) | payer OTHER ==
[2017-05-25 10:44] LABS: Hematocrit 36.5 % (36.0-46.0); Hemoglobin 11.6 g/dL (12.2-16.2); Mean Corpuscular Hemoglobin 29.5 pg (28.0-32.0); Mean Corpuscular Hgb Conc. 31.9 g/dL (32.0-36.0); Mean Corpuscular Volume 92.5 fL (80.0-100.0); Platelet Count (auto) 259 10^3/uL (140-450); Red Blood Cells 3.94 10^6/uL (4.0-5.20); Red Cell Distribution Width 15.8 % (11.8-14.3); White Blood Cell 26.3 10^3/uL (4.4-10.8)
[2017-05-25 10:54] LABS: Band Neutrophils % (manual) 0
[2017-05-25 10:55] LABS: Basophils % (manual) 0 (0.0-2.0); Blast Cells 0; Metamyelocytes % 0; Myelocytes % 0; Promyelocytes % 0; Reactive Lymphocytes 0
[2017-05-25 11:21] LABS: Urine Bacteria FEW /hpf (None Seen); Urine Blood 2+ /uL (Negative); Urine Mucus FEW (None Seen); Urine Specific Gravity 1.022 (1.001-1.035); Urine WBC 137 /hpf (0 - 5)
[2017-05-25 11:22] LABS: Albumin 3.2 g/dL (3.4-5.0); BUN/Creatinine Ratio 17.4; Calcium 9.8 mg/dL (8.5-10.1); Phosphorus 2.8 mg/dL (2.5-4.90); Potassium 3.8 mmol/L (3.5-5.1); Uric Acid 4.1 mg/dL (2.6-6.0)
[2017-05-25 13:17] LABS: Protein, Urine 160.5 mg/dL (0.0-11.9)
[2017-05-25 15:19] LABS: Eosinophils % (manual) 2 (0-7); Lymphocytes % (manual) 72 (10.0-50.0); Monocytes % (manual) 2 (0-12)
== END | disposition home or self-care (01) ==
LOC: LAB 10:19
PROVIDERS: ATTEND Internal Medicine
DX: N18.3 Chronic kidney disease, stage 3 (moderate) (principal); D63.1 Anemia in chronic kidney disease; E21.3 Hyperparathyroidism, unspecified; E78.5 Hyperlipidemia, unspecified; M10.9 Gout, unspecified; R80.9 Proteinuria, unspecified; E55.9 Vitamin D deficiency, unspecified
CPT/HCPCS: 36415; 80069; 81001; 82306; 82570; 83970; 84156; 84550; 85007; 85027

== ENCOUNTER 2017-05-30 06:03 | Day surgery (SDC) | payer OTHER ==
[2017-05-26 10:41] LABS: Hematocrit 38.4 % (36.0-46.0); Hemoglobin 12.3 g/dL (12.2-16.2); Mean Corpuscular Hemoglobin 29.6 pg (28.0-32.0); Mean Corpuscular Hgb Conc. 32.1 g/dL (32.0-36.0); Mean Corpuscular Volume 92.3 fL (80.0-100.0); Platelet Count (auto) 270 10^3/uL (140-450); Red Blood Cells 4.16 10^6/uL (4.0-5.20); Red Cell Distribution Width 15.4 % (11.8-14.3); White Blood Cell 27.2 10^3/uL (4.4-10.8)
[2017-05-26 10:55] LABS: INR 0.92 (0.9-1.15); Partial Thromboplastin Time 24.5 sec (22.64-33.71)
[2017-05-26 10:58] LABS: Urine Bacteria MOD /hpf (None Seen); Urine Blood 2+ /uL (Negative); Urine Hyaline Cast FEW /lpf (0 - 2); Urine Mucus FEW (None Seen); Urine Specific Gravity 1.023 (1.001-1.035); Urine WBC 313 /hpf (0 - 5)
[2017-05-26 11:03] LABS: Albumin 3.3 g/dL (3.4-5.0); BUN/Creatinine Ratio 18.9; Bilirubin, Total 0.3 mg/dL (0.2-1.0); Calcium 9.5 mg/dL (8.5-10.1); Potassium 4.4 mmol/L (3.5-5.1); Total Protein 6.6 g/dL (6.4-8.2)
[2017-05-26 11:07] LABS: Band Neutrophils % (manual) 0
[2017-05-26 11:08] LABS: Basophils % (manual) 0 (0.0-2.0); Blast Cells 0; Eosinophils % (manual) 0 (0-7); Metamyelocytes % 0; Myelocytes % 0; Promyelocytes % 0
[2017-05-26 13:15] LABS: Lymphocytes % (manual) 80 (10.0-50.0); Monocytes % (manual) 1 (0-12); Reactive Lymphocytes 5
[~2017-05-30] VITALS: Ht 165.1 cm; Wt 59.9 kg
[2017-05-30] MEDS ORDERED: CIPROFLOXACIN 400MG/200ML 200 ML IV ONE (07:13)
[2017-05-30] MEDS ORDERED: fentaNYL CITRATE 100 MCG/2 ML VL ONE (07:28)
[2017-05-30] MEDS ORDERED: MEPERIDINE HCL (50 MG/ML) 1 ML VIAL ONE (07:28)
[2017-05-30] MEDS ORDERED: MIDAZOLAM HCL 1MG/1ML-2 ML VIAL ONE (07:28)
[2017-05-30] MEDS ORDERED: DEXAMETHASONE SOD PHOS 10MG/1ML VIAL INJ ONE (07:31)
[2017-05-30] MEDS ORDERED: PROPOFOL 10 MG/ML 20 ML IV ONE (07:40)
[2017-05-30] MEDS ORDERED: MIDAZOLAM HCL 1MG/1ML-2 ML VIAL IV PRN (08:00)
[2017-05-30] MEDS ORDERED: ONDANSETRON HCL 4 MG/2 ML VIAL IV ONE (08:00)
[2017-05-30] MEDS ORDERED: LABETALOL HCL 5 MG/ML 4ML SYRINGE IV PRN (08:00)
[2017-05-30] MEDS ORDERED: ePHEDrine SULFATE 50 MG/ML AMP IV PRN (08:00)
[2017-05-30] MEDS ORDERED: fentaNYL CITRATE 100 MCG/2 ML VL IV ONE (08:00)
[2017-05-30 08:56] VITALS: BP 110/67
== END 2017-05-30 08:59 | disposition home or self-care (01) ==
LOC: SUR 06:03
PROVIDERS: ATTEND Urology
DX: N20.0 Calculus of kidney (principal); T83.192A Other mechanical complication of indwelling ureteral stent, initial encounter; Z85.3 Personal history of malignant neoplasm of breast; Z90.710 Acquired absence of both cervix and uterus; Z90.49 Acquired absence of other specified parts of digestive tract; Z90.10 Acquired absence of unspecified breast and nipple; Z88.6 Allergy status to analgesic agent; Z88.1 Allergy status to other antibiotic agents; Z88.0 Allergy status to penicillin; J44.9 Chronic obstructive pulmonary disease, unspecified; E78.5 Hyperlipidemia, unspecified
CPT/HCPCS: 36415; 50590; 52310; 80053; 81001; 85007; 85027; 85610; 85730; J0744; J1100; J2175; J2250; J2704; J3010; J7030

== ENCOUNTER → 2017-11-20 | Outpatient (CLI) | payer OTHER ==
[2017-11-20 08:55] LABS: Hematocrit 42.2 % (36.0-46.0); Hemoglobin 14.1 g/dL (12.2-16.2); Mean Corpuscular Hemoglobin 30.8 pg (28.0-32.0); Mean Corpuscular Hgb Conc. 33.3 g/dL (32.0-36.0); Mean Corpuscular Volume 92.5 fL (80.0-100.0); Platelet Count (auto) 344 10^3/uL (140-450); Red Blood Cells 4.56 10^6/uL (4.0-5.20); Red Cell Distribution Width 14.3 % (11.8-14.3)
[2017-11-20 09:06] LABS: Band Neutrophils % (manual) 0; Basophils % (manual) 0 (0.0-2.0); Blast Cells 0; Metamyelocytes % 0; Monocytes % (manual) 0 (0-12); Myelocytes % 0; Promyelocytes % 0; Reactive Lymphocytes 0
[2017-11-20 09:18] LABS: Eosinophils % (manual) 3 (0-7); Lymphocytes % (manual) 73 (10.0-50.0)
[2017-11-20 09:28] LABS: Albumin 3.2 g/dL (3.4-5.0); Bilirubin, Total 0.3 mg/dL (0.2-1.0); Calcium 9.5 mg/dL (8.5-10.1); Potassium 3.3 mmol/L (3.5-5.1); Total Protein 6.7 g/dL (6.4-8.2)
== END | disposition home or self-care (01) ==
LOC: LAB 08:39
PROVIDERS: ATTEND Physician Assistant
DX: M81.0 Age-related osteoporosis without current pathological fracture (principal); E78.2 Mixed hyperlipidemia; R53.82 Chronic fatigue, unspecified; R53.1 Weakness; J44.9 Chronic obstructive pulmonary disease, unspecified; I10 Essential (primary) hypertension
CPT/HCPCS: 36415; 80053; 80061; 84443; 85007; 85027

== ENCOUNTER → 2017-11-22 | Outpatient (CLI) | payer OTHER ==
[2017-11-22 10:17] LABS: Hematocrit 40.6 % (36.0-46.0); Hemoglobin 13.4 g/dL (12.2-16.2); Mean Corpuscular Hemoglobin 30.3 pg (28.0-32.0); Mean Corpuscular Volume 91.8 fL (80.0-100.0); Platelet Count (auto) 330 10^3/uL (140-450); Red Blood Cells 4.42 10^6/uL (4.0-5.20); Red Cell Distribution Width 14.1 % (11.8-14.3); White Blood Cell 28.3 10^3/uL (4.4-10.8)
[2017-11-22 10:21] LABS: Band Neutrophils % (manual) 0; Basophils % (manual) 0 (0.0-2.0); Blast Cells 0; Metamyelocytes % 0; Myelocytes % 0; Promyelocytes % 0; Reactive Lymphocytes 0
[2017-11-22 10:26] LABS: Urine Bacteria NONE SEEN /hpf (None Seen); Urine Blood Negative /uL (Negative); Urine Hyaline Cast FEW /lpf (0 - 2); Urine Mucus FEW (None Seen); Urine Specific Gravity 1.023 (1.001-1.035); Urine WBC 9 /hpf (0 - 5)
[2017-11-22 11:32] LABS: Albumin 3.1 g/dL (3.4-5.0); BUN/Creatinine Ratio 21.3; Calcium 9.2 mg/dL (8.5-10.1); Phosphorus 2.6 mg/dL (2.5-4.90); Potassium 3.3 mmol/L (3.5-5.1); Uric Acid 4.3 mg/dL (2.6-6.0)
[2017-11-22 11:55] LABS: Eosinophils % (manual) 2 (0-7); Lymphocytes % (manual) 79 (10.0-50.0); Monocytes % (manual) 3 (0-12)
[2017-11-22 13:47] LABS: Protein, Urine 31.9 mg/dL (0.0-11.9)
== END | disposition home or self-care (01) ==
LOC: LAB 09:10
PROVIDERS: ATTEND Internal Medicine
DX: E55.9 Vitamin D deficiency, unspecified (principal); M10.9 Gout, unspecified; N18.3 Chronic kidney disease, stage 3 (moderate); D63.1 Anemia in chronic kidney disease; E21.3 Hyperparathyroidism, unspecified
CPT/HCPCS: 36415; 80069; 81001; 82306; 82570; 83970; 84156; 84550; 85007; 85027

== ENCOUNTER → 2017-11-28 | Outpatient (CLI) | payer OTHER ==
[2017-11-28 12:04] LABS: Hematocrit 40.3 % (36.0-46.0); Hemoglobin 13.1 g/dL (12.2-16.2); Mean Corpuscular Hemoglobin 29.9 pg (28.0-32.0); Mean Corpuscular Hgb Conc. 32.6 g/dL (32.0-36.0); Mean Corpuscular Volume 91.7 fL (80.0-100.0); Platelet Count (auto) 307 10^3/uL (140-450); Red Cell Distribution Width 13.9 % (11.8-14.3)
[2017-11-28 12:16] LABS: Band Neutrophils % (manual) 0; Basophils % (manual) 0 (0.0-2.0); Blast Cells 0; Eosinophils % (manual) 0 (0-7); Metamyelocytes % 0; Monocytes % (manual) 0 (0-12); Myelocytes % 0; Promyelocytes % 0; Reactive Lymphocytes 0
[2017-11-28 13:07] LABS: Albumin 3.1 g/dL (3.4-5.0); BUN/Creatinine Ratio 23.9; Bilirubin, Total 0.3 mg/dL (0.2-1.0); Potassium 3.7 mmol/L (3.5-5.1); Total Protein 6.4 g/dL (6.4-8.2)
[2017-11-28 14:29] LABS: Lymphocytes % (manual) 76 (10.0-50.0)
== END | disposition home or self-care (01) ==
LOC: LAB 11:33
PROVIDERS: ATTEND Internal Medicine
DX: C50.912 Malignant neoplasm of unspecified site of left female breast (principal); Z85.3 Personal history of malignant neoplasm of breast
CPT/HCPCS: 36415; 80053; 83615; 85007; 85027

== ENCOUNTER → 2018-01-25 | Outpatient (CLI) | payer OTHER | END | disposition home or self-care (01) | LOC: XYW 08:07 | PROVIDERS: ATTEND Internal Medicine Cardiovascular Disease | DX: Z01.818 Encounter for other preprocedural examination (principal) | CPT/HCPCS: 93306 ==

== ENCOUNTER 2018-02-05 08:23 | Day surgery (SDC) | payer OTHER ==
[2018-01-30 11:49] LABS: Mean Corpuscular Hemoglobin 30.7 pg (28.0-32.0); Mean Corpuscular Hgb Conc. 33.3 g/dL (32.0-36.0); Mean Corpuscular Volume 92.2 fL (80.0-100.0); Platelet Count (auto) 298 10^3/uL (140-450); Red Blood Cells 4.55 10^6/uL (4.0-5.20); Red Cell Distribution Width 13.8 % (11.8-14.3); White Blood Cell 25.3 10^3/uL (4.4-10.8)
[2018-01-30 11:59] LABS: Band Neutrophils % (manual) 0; Basophils % (manual) 0 (0.0-2.0); Blast Cells 0; Eosinophils % (manual) 0 (0-7); Metamyelocytes % 0; Myelocytes % 0; Promyelocytes % 0
[2018-01-30 12:03] LABS: INR 0.87 (0.9-1.15); Partial Thromboplastin Time 23.6 sec (23.78-33.04); Prothrombin Time 9.4 sec (9.27-12.13)
[2018-01-30 13:37] LABS: Lymphocytes % (manual) 70 (10.0-50.0); Monocytes % (manual) 2 (0-12); Reactive Lymphocytes 2
[~2018-02-05] VITALS: Ht 162.6 cm; Wt 59.9 kg
[2018-02-05] MEDS ORDERED: fentaNYL CITRATE 100 MCG/2 ML VL ONE (08:44)
[2018-02-05] MEDS ORDERED: diphenhdrAMINE 50mg/ml (500mg/10ml VIAL) ONE (08:44)
[2018-02-05] MEDS ORDERED: MIDAZOLAM HCL 5 MG/ML-1ML VIAL ONE (08:44)
[2018-02-05] MEDS ORDERED: LIDOCAINE VISCOUS 2% 15ML UD ONE (08:44)
[2018-02-05] MEDS ORDERED: SODIUM CHLORIDE LOCK 10 ML ONE (08:44)
[2018-02-05 11:25] VITALS: BP 109/63
== END 2018-02-05 11:25 | disposition home or self-care (01) ==
LOC: GI 08:23
PROVIDERS: ATTEND Internal Medicine Gastroenterology
DX: K29.50 Unspecified chronic gastritis without bleeding (principal); K44.9 Diaphragmatic hernia without obstruction or gangrene; K21.0 Gastro-esophageal reflux disease with esophagitis; Z88.6 Allergy status to analgesic agent; Z88.0 Allergy status to penicillin; Z85.3 Personal history of malignant neoplasm of breast; Z90.710 Acquired absence of both cervix and uterus; Z85.6 Personal history of leukemia; Z90.49 Acquired absence of other specified parts of digestive tract; Z82.49 Family history of ischemic heart disease and other diseases of the circulatory system; Z80.9 Family history of malignant neoplasm, unspecified; Z98.890 Other specified postprocedural states; Z79.899 Other long term (current) drug therapy; Z88.8 Allergy status to other drugs, medicaments and biological substances
CPT/HCPCS: 36415; 43239; 85007; 85027; 85610; 85730; 88305; 88313; 88342; A6257; J2250; J3010; J7030; J1200

== ENCOUNTER 2018-02-14 07:06 | Inpatient (IN) | payer OTHER ==
[2018-02-12 12:40] LABS: Urine Bacteria NONE SEEN /hpf (None Seen); Urine Blood Negative /uL (Negative); Urine Mucus FEW (None Seen); Urine Specific Gravity 1.023 (1.001-1.035); Urine WBC 22 /hpf (0 - 5)
[2018-02-12 12:48] LABS: INR 0.93 (0.9-1.15); Partial Thromboplastin Time 24.7 sec (23.78-33.04)
[2018-02-12 12:54] LABS: Hematocrit 41.5 % (36.0-46.0); Hemoglobin 13.9 g/dL (12.2-16.2); Mean Corpuscular Hemoglobin 30.9 pg (28.0-32.0); Mean Corpuscular Hgb Conc. 33.5 g/dL (32.0-36.0); Mean Corpuscular Volume 92.4 fL (80.0-100.0); Platelet Count (auto) 321 10^3/uL (140-450); Red Cell Distribution Width 14.2 % (11.8-14.3); White Blood Cell 23.9 10^3/uL (4.4-10.8)
[2018-02-12 13:19] LABS: Potassium 4.4 mmol/L (3.5-5.1)
[2018-02-12 13:25] LABS: Albumin 3.4 g/dL (3.4-5.0); BUN/Creatinine Ratio 22.7; Bilirubin, Total 0.3 mg/dL (0.2-1.0); Calcium 10.2 mg/dL (8.5-10.1); Total Protein 6.8 g/dL (6.4-8.2)
[2018-02-12 13:42] LABS: Band Neutrophils % (manual) 0; Basophils % (manual) 0 (0.0-2.0); Blast Cells 0; Metamyelocytes % 0; Myelocytes % 0; Promyelocytes % 0; Reactive Lymphocytes 0
[2018-02-12 15:04] LABS: Eosinophils % (manual) 1 (0-7); Lymphocytes % (manual) 79 (10.0-50.0); Monocytes % (manual) 5 (0-12)
[~2018-02-14] VITALS: Ht 165.1 cm; Wt 70.1 kg
[2018-02-14] MEDS ORDERED: cefTRIAXone 1GM/50ML D5W 50 ML IV ONE (08:18)
[2018-02-14] MEDS ORDERED: fentaNYL CITRATE 100 MCG/2 ML VL ONE ×2 (08:48→10:00)
[2018-02-14] MEDS ORDERED: ROCURONIUM 10MG/ML 10ML VIAL IV ONE (08:49)
[2018-02-14] MEDS ORDERED: PROPOFOL 10 MG/ML 20 ML IV ONE (08:49)
[2018-02-14] MEDS ORDERED: MIDAZOLAM HCL 1MG/1ML-2 ML VIAL ONE (08:49)
[2018-02-14] MEDS ORDERED: GLYCOPYRROLATE 0.2 MG/ML 1ML VIAL ONE (09:44)
[2018-02-14] MEDS ORDERED: NEOSTIGMINE 1 MG/ML INJ (10mg/10ML VIAL) ONE (09:44)
[2018-02-14] MEDS ORDERED: ONDANSETRON HCL 4 MG/2 ML VIAL IV ONE (10:15)
[2018-02-14] MEDS ORDERED: hydrALAZINE HCL 20 MG/ML VL IV PRN (10:15)
[2018-02-14] MEDS ORDERED: ePHEDrine SULFATE 50 MG/ML AMP IV PRN (10:15)
[2018-02-14] MEDS: MORPHINE SULFATE 4 MG/ML SYR/VIAL IV PRN ×7 (10:26→23:35)
[2018-02-14] MEDS ORDERED: KETOROLAC TROMETH 30 MG/ML 1ML VIAL ONE (11:12)
[2018-02-14] MEDS ORDERED: KETOROLAC TROMETH 30 MG/ML 1ML VIAL IV ONE (11:30)
[2018-02-14 12:41] VITALS: BP 93/61
[2018-02-14] MEDS ORDERED: PANTOPRAZOLE 40 MG/10 ML VIAL IV ONE (15:00)
[2018-02-14] MEDS: SODIUM CHLORIDE 0.9% 1,000 ML IV SCH (15:01)
[2018-02-14] MEDS: metroNIDAZOLE 500MG/100ML 100 ML IV SCH ×2 (15:01→21:58)
[2018-02-14] MEDS: ONDANSETRON HCL 4 MG/2 ML VIAL IV PRN ×2 (15:02→19:34)
[2018-02-14] MEDS ORDERED: MULTTAB61 PO (15:05)
[2018-02-14 16:00] VITALS: BP 93/59
[2018-02-14] MEDS: HYDROcodone-ACET 5/325MG TAB PO PRN (17:12)
[2018-02-14 22:00] VITALS: BP 118/61
[2018-02-14] MEDS ORDERED: TEMAZEPAM 15 MG CAP PO ONE (22:45)
[2018-02-15] MEDS: SODIUM CHLORIDE 0.9% 1,000 ML IV SCH ×2 (04:12→17:21)
[2018-02-15] MEDS: ONDANSETRON HCL 4 MG/2 ML VIAL IV PRN ×4 (04:13→17:21)
[2018-02-15] MEDS: MORPHINE SULFATE 4 MG/ML SYR/VIAL IV PRN ×5 (04:13→21:32)
[2018-02-15 05:00] VITALS: BP 114/49
[2018-02-15 05:16] LABS: Hematocrit 33.1 % (36.0-46.0); Hemoglobin 10.6 g/dL (12.2-16.2); Mean Corpuscular Hemoglobin 30.7 pg (28.0-32.0); Mean Corpuscular Volume 95.7 fL (80.0-100.0); Platelet Count (auto) 218 10^3/uL (140-450); Red Blood Cells 3.46 10^6/uL (4.0-5.20); Red Cell Distribution Width 14.7 % (11.8-14.3); White Blood Cell 19.5 10^3/uL (4.4-10.8)
[2018-02-15 05:40] LABS: Potassium 4.1 mmol/L (3.5-5.1)
[2018-02-15 05:48] LABS: Albumin 2.3 g/dL (3.4-5.0); BUN/Creatinine Ratio 21.3; Bilirubin, Total 0.3 mg/dL (0.2-1.0); Calcium 8.2 mg/dL (8.5-10.1); Total Protein 4.8 g/dL (6.4-8.2)
[2018-02-15 05:49] LABS: Basophils % (manual) 0 (0.0-2.0); Blast Cells 0; Metamyelocytes % 0; Myelocytes % 0; Promyelocytes % 0; Reactive Lymphocytes 0
[2018-02-15] MEDS: metroNIDAZOLE 500MG/100ML 100 ML IV SCH ×3 (06:10→21:31)
[2018-02-15 06:41] LABS: Band Neutrophils % (manual) 1; Eosinophils % (manual) 2 (0-7); Lymphocytes % (manual) 65 (10.0-50.0); Monocytes % (manual) 3 (0-12)
[2018-02-15 07:50] VITALS: BP 95/51
[2018-02-15 08:11] VITALS: BP 95/51
[2018-02-15] MEDS: cefTRIAXone 1GM/50ML D5W 50 ML IV SCH (08:44)
[2018-02-15] MEDS: PANTOPRAZOLE 40 MG/10 ML VIAL IV SCH (09:16)
[2018-02-15 12:28] VITALS: BP 89/54
[2018-02-15 15:58] VITALS: BP 93/58
[2018-02-15 22:00] VITALS: BP 105/67
[2018-02-15] MEDS ORDERED: TEMAZEPAM 15 MG CAP PO ONE (22:00)
[2018-02-15] MEDS: TEMAZEPAM 15 MG CAP PO PRN (23:16)
[2018-02-16 05:00] VITALS: BP 116/72
[2018-02-16] MEDS: metroNIDAZOLE 500MG/100ML 100 ML IV SCH ×3 (05:04→23:36)
[2018-02-16] MEDS: MORPHINE SULFATE 4 MG/ML SYR/VIAL IV PRN ×4 (05:04→17:47)
[2018-02-16] MEDS: ONDANSETRON HCL 4 MG/2 ML VIAL IV PRN ×4 (05:15→17:48)
[2018-02-16] MEDS: SODIUM CHLORIDE 0.9% 1,000 ML IV SCH (06:16)
[2018-02-16 07:06] LABS: Hematocrit 32.9 % (36.0-46.0); Hemoglobin 11.1 g/dL (12.2-16.2); Mean Corpuscular Hemoglobin 30.9 pg (28.0-32.0); Mean Corpuscular Hgb Conc. 33.6 g/dL (32.0-36.0); Platelet Count (auto) 219 10^3/uL (140-450); Red Blood Cells 3.58 10^6/uL (4.0-5.20); Red Cell Distribution Width 14.3 % (11.8-14.3); White Blood Cell 17.8 10^3/uL (4.4-10.8)
[2018-02-16 07:18] LABS: Band Neutrophils % (manual) 0; Basophils % (manual) 0 (0.0-2.0); Blast Cells 0; Eosinophils % (manual) 0 (0-7); Metamyelocytes % 0; Myelocytes % 0; Promyelocytes % 0
[2018-02-16 07:25] LABS: Albumin 2.2 g/dL (3.4-5.0); Calcium 8.4 mg/dL (8.5-10.1); Potassium 3.8 mmol/L (3.5-5.1)
[2018-02-16 07:28] LABS: BUN/Creatinine Ratio 14.3; Bilirubin, Total 0.2 mg/dL (0.2-1.0); Total Protein 4.7 g/dL (6.4-8.2)
[2018-02-16 07:39] LABS: Lymphocytes % (manual) 65 (10.0-50.0); Monocytes % (manual) 5 (0-12); Reactive Lymphocytes 1
[2018-02-16 08:34] VITALS: BP 97/59
[2018-02-16] MEDS: cefTRIAXone 1GM/50ML D5W 50 ML IV SCH (08:38)
[2018-02-16] MEDS: PANTOPRAZOLE 40 MG/10 ML VIAL IV SCH (10:16)
[2018-02-16] MEDS ORDERED: SOD CHL 0.9%/ KCL 20MEQ 1,000 ML IV ONE (11:15)
[2018-02-16] MEDS ORDERED: POTASSIUM CHL 10 Meq TABLET PO ONE (11:15)
[2018-02-16 14:09] VITALS: BP 109/58
[2018-02-16 16:59] VITALS: BP 132/87
[2018-02-16] MEDS: TEMAZEPAM 15 MG CAP PO PRN (21:39)
[2018-02-16] MEDS: HYDROcodone-ACET 5/325MG TAB PO PRN (21:40)
[2018-02-16] MEDS: DOCUSATE SOD 100 MG CAP PO SCH (21:41)
[2018-02-16 22:00] VITALS: BP 107/67
[2018-02-17] MEDS: MORPHINE SULFATE 4 MG/ML SYR/VIAL IV PRN ×4 (02:58→18:45)
[2018-02-17] MEDS: ONDANSETRON HCL 4 MG/2 ML VIAL IV PRN ×2 (02:58→09:09)
[2018-02-17 05:13] VITALS: BP 117/78
[2018-02-17] MEDS: HYDROcodone-ACET 5/325MG TAB PO PRN (05:38)
[2018-02-17] MEDS: metroNIDAZOLE 500MG/100ML 100 ML IV SCH ×3 (05:50→22:07)
[2018-02-17 05:53] LABS: Hematocrit 35.3 % (36.0-46.0); Hemoglobin 11.9 g/dL (12.2-16.2); Mean Corpuscular Hemoglobin 30.8 pg (28.0-32.0); Mean Corpuscular Hgb Conc. 33.7 g/dL (32.0-36.0); Mean Corpuscular Volume 91.7 fL (80.0-100.0); Platelet Count (auto) 240 10^3/uL (140-450); Red Blood Cells 3.85 10^6/uL (4.0-5.20); Red Cell Distribution Width 13.9 % (11.8-14.3); White Blood Cell 18.6 10^3/uL (4.4-10.8)
[2018-02-17 06:00] LABS: Band Neutrophils % (manual) 0; Basophils % (manual) 0 (0.0-2.0); Blast Cells 0; Metamyelocytes % 0; Myelocytes % 0; Promyelocytes % 0; Reactive Lymphocytes 0
[2018-02-17 06:04] LABS: Albumin 2.5 g/dL (3.4-5.0); Calcium 8.8 mg/dL (8.5-10.1); Potassium 3.6 mmol/L (3.5-5.1)
[2018-02-17 06:08] LABS: BUN/Creatinine Ratio 9.6; Bilirubin, Total 0.3 mg/dL (0.2-1.0); Total Protein 5.3 g/dL (6.4-8.2)
[2018-02-17 06:53] LABS: Eosinophils % (manual) 2 (0-7); Lymphocytes % (manual) 56 (10.0-50.0); Monocytes % (manual) 2 (0-12)
[2018-02-17 08:03] VITALS: BP 122/75
[2018-02-17 08:09] VITALS: BP_DIAS 8
[2018-02-17] MEDS: cefTRIAXone 1GM/50ML D5W 50 ML IV SCH (09:02)
[2018-02-17] MEDS: PANTOPRAZOLE 40 MG/10 ML VIAL IV SCH (10:11)
[2018-02-17] MEDS: MILK OF MAGNESIA 30ML SUSP PO SCH (10:11)
[2018-02-17 13:42] VITALS: BP 126/73
[2018-02-17 16:48] VITALS: BP 124/81
[2018-02-17 22:00] VITALS: BP 119/71
[2018-02-17] MEDS: DOCUSATE SOD 100 MG CAP PO SCH (22:08)
[2018-02-17] MEDS: TEMAZEPAM 15 MG CAP PO PRN (22:10)
[2018-02-18] MEDS: MORPHINE SULFATE 4 MG/ML SYR/VIAL IV PRN (03:09)
[2018-02-18] MEDS: ONDANSETRON HCL 4 MG/2 ML VIAL IV PRN (03:17)
[2018-02-18 05:00] VITALS: BP 108/70
[2018-02-18 05:38] LABS: Hematocrit 34.9 % (36.0-46.0); Hemoglobin 11.6 g/dL (12.2-16.2); Mean Corpuscular Hemoglobin 30.2 pg (28.0-32.0); Mean Corpuscular Hgb Conc. 33.2 g/dL (32.0-36.0); Mean Corpuscular Volume 90.9 fL (80.0-100.0); Platelet Count (auto) 241 10^3/uL (140-450); Red Blood Cells 3.84 10^6/uL (4.0-5.20); White Blood Cell 17.2 10^3/uL (4.4-10.8)
[2018-02-18 05:42] LABS: Band Neutrophils % (manual) 0; Basophils % (manual) 0 (0.0-2.0); Blast Cells 0; Metamyelocytes % 0; Myelocytes % 0; Promyelocytes % 0; Reactive Lymphocytes 0
[2018-02-18] MEDS: metroNIDAZOLE 500MG/100ML 100 ML IV SCH ×3 (05:51→21:21)
[2018-02-18 05:56] LABS: Albumin 2.3 g/dL (3.4-5.0); Calcium 8.9 mg/dL (8.5-10.1); Magnesium 1.9 mg/dL (1.6-2.6); Potassium 3.6 mmol/L (3.5-5.1)
[2018-02-18 05:58] LABS: Eosinophils % (manual) 1 (0-7); Lymphocytes % (manual) 66 (10.0-50.0); Monocytes % (manual) 1 (0-12)
[2018-02-18 06:02] LABS: BUN/Creatinine Ratio 15.2; Bilirubin, Total 0.3 mg/dL (0.2-1.0); Total Protein 4.9 g/dL (6.4-8.2)
[2018-02-18 08:42] VITALS: BP 109/70
[2018-02-18] MEDS: HYDROcodone-ACET 5/325MG TAB PO PRN ×3 (09:10→21:29)
[2018-02-18] MEDS: MILK OF MAGNESIA 30ML SUSP PO SCH (09:57)
[2018-02-18] MEDS: cefTRIAXone 1GM/50ML D5W 50 ML IV SCH (10:37)
[2018-02-18] MEDS: PANTOPRAZOLE 40 MG/10 ML VIAL IV SCH (10:37)
[2018-02-18 12:29] VITALS: BP 120/76
[2018-02-18] MEDS: METOCLOPRAMIDE HCL 5MG/ml INJ 2ml VIAL IV SCH ×2 (13:29→21:21)
[2018-02-18] MEDS: POLYETHYLENE GLYCOL 17 GM PWDR PO SCH ×2 (13:29→21:22)
[2018-02-18 16:46] VITALS: BP 105/67
[2018-02-18] MEDS: DOCUSATE SOD 100 MG CAP PO SCH (21:21)
[2018-02-18 22:00] VITALS: BP 109/65
[2018-02-18] MEDS: TEMAZEPAM 15 MG CAP PO PRN (23:13)
[2018-02-19 04:30] VITALS: BP 109/63
[2018-02-19] MEDS: HYDROcodone-ACET 5/325MG TAB PO PRN ×2 (04:58→11:11)
[2018-02-19] MEDS: METOCLOPRAMIDE HCL 5MG/ml INJ 2ml VIAL IV SCH (05:34)
[2018-02-19] MEDS: metroNIDAZOLE 500MG/100ML 100 ML IV SCH (05:34)
[2018-02-19 08:00] VITALS: BP 116/70
[2018-02-19] MEDS: cefTRIAXone 1GM/50ML D5W 50 ML IV SCH (08:36)
[2018-02-19] MEDS: PANTOPRAZOLE 40 MG/10 ML VIAL IV SCH (10:00)
[2018-02-19] MEDS: MILK OF MAGNESIA 30ML SUSP PO SCH (10:09)
[2018-02-19] MEDS: POLYETHYLENE GLYCOL 17 GM PWDR PO SCH (10:10)
[2018-02-19 13:00] VITALS: BP 115/65
== END 2018-02-19 13:50 | disposition home or self-care (01) | DRG 415 ==
LOC: SUR 07:06 → WEST WING 12:02
PROVIDERS: ADMIT Surgery; ATTEND Internal Medicine
PROC: 0FT40ZZ Resection of Gallbladder, Open Approach (ICD-10-PCS; principal; 2018-02-14 08:56)
DX: K80.66 Calculus of gallbladder and bile duct with acute and chronic cholecystitis without obstruction (principal); C91.10 Chronic lymphocytic leukemia of B-cell type not having achieved remission; N39.0 Urinary tract infection, site not specified; K66.0 Peritoneal adhesions (postprocedural) (postinfection); E78.5 Hyperlipidemia, unspecified; Z88.6 Allergy status to analgesic agent; Z88.0 Allergy status to penicillin; Z88.8 Allergy status to other drugs, medicaments and biological substances
CPT/HCPCS: 36415; 80053; 81001; 83735; 85007; 85027; 85610; 85730; 97110; 97116; 97163; 97530; A6257; C9113; G0378; J0696; J1885; J2250; J2405; J2704; J3490

== ENCOUNTER → 2018-04-06 | Outpatient (CLI) | payer OTHER, MEDICARE ==
[~2018-04-06] MED LIST changes: +MULTTAB61 PO
[2018-04-06 11:28] LABS: Hematocrit 38.1 % (36.0-46.0); Hemoglobin 12.8 g/dL (12.2-16.2); Mean Corpuscular Hemoglobin 30.6 pg (28.0-32.0); Mean Corpuscular Hgb Conc. 33.6 g/dL (32.0-36.0); Mean Corpuscular Volume 90.9 fL (80.0-100.0); Platelet Count (auto) 335 10^3/uL (140-450); Red Blood Cells 4.19 10^6/uL (4.0-5.20); Red Cell Distribution Width 14.4 % (11.8-14.3); White Blood Cell 27.3 10^3/uL (4.4-10.8)
[2018-04-06 11:37] LABS: Band Neutrophils % (manual) 0; Basophils % (manual) 0 (0.0-2.0); Blast Cells 0; Metamyelocytes % 0; Myelocytes % 0; Promyelocytes % 0; Reactive Lymphocytes 0
[2018-04-06 11:46] LABS: Chloride 107 mmol/L (98-107); Potassium 3.7 mmol/L (3.5-5.1); Sodium 137 mmol/L (136-145)
[2018-04-06 11:54] LABS: Alanine Aminotransferase 22 U/L (13-56); Albumin 3.1 g/dL (3.4-5.0); Alkaline Phosphatase 59 U/L (45-117); Anion Gap 5 (5-15); Aspartate Aminotransferase 19 U/L (15-37); BUN/Creatinine Ratio 25.6; Bilirubin, Total 0.3 mg/dL (0.2-1.0); Blood Urea Nitrogen 23 mg/dL (7-18); Carbon Dioxide 25 mmol/L (21-32); GFR African American > 60 mL/min; GFR Non-African American > 60 mL/min; Glucose 84 mg/dL (74-106); Lactate Dehydrogenase 132 U/L (84-246); Total Protein 6.4 g/dL (6.4-8.2)
[2018-04-06 12:44] LABS: Eosinophils % (manual) 1 (0-7); Lymphocytes % (manual) 57 (10.0-50.0); Monocytes % (manual) 5 (0-12)
== END | disposition home or self-care (01) ==
LOC: LAB 11:00
PROVIDERS: ATTEND Internal Medicine
DX: C50.912 Malignant neoplasm of unspecified site of left female breast (principal)
CPT/HCPCS: 36415; 80053; 83615; 85007; 85027

== ENCOUNTER → 2018-04-23 | Outpatient (CLI) | payer OTHER, MEDICARE ==
[2018-04-23 13:44] LABS: Free T4 (Free Thyroxine) 1.08 ng/dL (0.89-1.76); T3 Total 0.65 ng/mL (0.60-1.81)
== END | disposition home or self-care (01) ==
LOC: LAB 12:33
PROVIDERS: ATTEND Physician Assistant
DX: C91.10 Chronic lymphocytic leukemia of B-cell type not having achieved remission (principal); K21.9 Gastro-esophageal reflux disease without esophagitis; E78.2 Mixed hyperlipidemia; M81.0 Age-related osteoporosis without current pathological fracture; R53.83 Other fatigue
CPT/HCPCS: 36415; 82306; 82607; 84439; 84443; 84480

== ENCOUNTER → 2018-05-22 | Outpatient (CLI) | payer OTHER, MEDICARE ==
[2018-05-22 10:38] LABS: Hematocrit 40.6 % (36.0-46.0); Hemoglobin 13.1 g/dL (12.2-16.2); Mean Corpuscular Hemoglobin 30.1 pg (28.0-32.0); Mean Corpuscular Hgb Conc. 32.4 g/dL (32.0-36.0); Mean Corpuscular Volume 93.1 fL (80.0-100.0); Platelet Count (auto) 294 10^3/uL (140-450); Red Blood Cells 4.36 10^6/uL (4.0-5.20); White Blood Cell 21.6 10^3/uL (4.4-10.8)
[2018-05-22 10:46] LABS: Urine Blood TRACE /uL (Negative); Urine Specific Gravity 1.024 (1.001-1.035)
[2018-05-22 10:58] LABS: Band Neutrophils % (manual) 0; Basophils % (manual) 0 (0.0-2.0); Blast Cells 0; Eosinophils % (manual) 0 (0-7); Metamyelocytes % 0; Myelocytes % 0; Promyelocytes % 0; Reactive Lymphocytes 0
[2018-05-22 11:18] LABS: Albumin 3.2 g/dL (3.4-5.0); BUN/Creatinine Ratio 18.6; Calcium 8.9 mg/dL (8.5-10.1); Phosphorus 2.4 mg/dL (2.5-4.90); Potassium 3.4 mmol/L (3.5-5.1); Uric Acid 4.1 mg/dL (2.6-6.0)
[2018-05-22 11:30] LABS: Protein, Urine 89.6 mg/dL (0.0-11.9)
[2018-05-22 11:39] LABS: Creatinine, Urine 284 mg/dL (30.0-125.0)
[2018-05-22 11:41] LABS: Lymphocytes % (manual) 70 (10.0-50.0); Monocytes % (manual) 3 (0-12)
== END | disposition home or self-care (01) ==
LOC: LAB 10:17
PROVIDERS: ATTEND Internal Medicine
DX: I12.9 Hypertensive chronic kidney disease with stage 1 through stage 4 chronic kidney disease, or unspecified chronic kidney disease (principal); N18.3 Chronic kidney disease, stage 3 (moderate); D63.1 Anemia in chronic kidney disease; M10.9 Gout, unspecified; R80.9 Proteinuria, unspecified; E21.3 Hyperparathyroidism, unspecified; E55.9 Vitamin D deficiency, unspecified; E78.5 Hyperlipidemia, unspecified
CPT/HCPCS: 36415; 80069; 81003; 82306; 82570; 83970; 84156; 84550; 85007; 85027

== ENCOUNTER → 2018-10-16 | Outpatient (CLI) | payer OTHER, MEDICARE ==
[~2018-10-16] MED LIST changes: +POTA-220 PO; -POTA20TA53 PO
[2018-10-16 11:14] LABS: Hematocrit 38.8 % (36.0-46.0); Mean Corpuscular Hemoglobin 31.1 pg (28.0-32.0); Mean Corpuscular Hgb Conc. 33.6 g/dL (32.0-36.0); Mean Corpuscular Volume 92.5 fL (80.0-100.0); Platelet Count (auto) 268 10^3/uL (140-450); Red Blood Cells 4.19 10^6/uL (4.0-5.20); Red Cell Distribution Width 14.4 % (11.8-14.3)
[2018-10-16 11:26] LABS: Band Neutrophils % (manual) 0; Basophils % (manual) 0 (0.0-2.0); Eosinophils % (manual) 0 (0-7); Metamyelocytes % 0
[2018-10-16 11:27] LABS: Blast Cells 0; Myelocytes % 0; Promyelocytes % 0
[2018-10-16 12:25] LABS: Potassium 3.9 mmol/L (3.5-5.1)
[2018-10-16 12:37] LABS: BUN/Creatinine Ratio 24.7; Bilirubin, Total 0.3 mg/dL (0.2-1.0); Calcium 9.6 mg/dL (8.5-10.1); Total Protein 6.3 g/dL (6.4-8.2)
[2018-10-16 15:10] LABS: Lymphocytes % (manual) 64 (10.0-50.0); Monocytes % (manual) 4 (0-12); Reactive Lymphocytes 6
== END | disposition home or self-care (01) ==
LOC: LAB 09:56
PROVIDERS: ATTEND Physician Assistant
DX: E78.2 Mixed hyperlipidemia (principal); C91.10 Chronic lymphocytic leukemia of B-cell type not having achieved remission; M81.0 Age-related osteoporosis without current pathological fracture; N20.0 Calculus of kidney
CPT/HCPCS: 36415; 80053; 80061; 85007; 85027

== ENCOUNTER → 2018-10-18 | Outpatient (CLI) | payer OTHER, MEDICARE ==
[2018-10-18 09:59] LABS: Hematocrit 41.5 % (36.0-46.0); Hemoglobin 13.6 g/dL (12.2-16.2); Mean Corpuscular Hemoglobin 30.4 pg (28.0-32.0); Mean Corpuscular Hgb Conc. 32.7 g/dL (32.0-36.0); Mean Corpuscular Volume 92.9 fL (80.0-100.0); Platelet Count (auto) 282 10^3/uL (140-450); Red Blood Cells 4.47 10^6/uL (4.0-5.20); Red Cell Distribution Width 14.6 % (11.8-14.3); White Blood Cell 23.1 10^3/uL (4.4-10.8)
[2018-10-18 10:07] LABS: INR < 0.93 (0.9-1.15); Partial Thromboplastin Time 23.9 sec (23.64-32.05)
[2018-10-18 10:10] LABS: Albumin 3.3 g/dL (3.4-5.0); Calcium 9.7 mg/dL (8.5-10.1); Potassium 4.7 mmol/L (3.5-5.1)
[2018-10-18 10:13] LABS: BUN/Creatinine Ratio 24.1; Band Neutrophils % (manual) 0; Basophils % (manual) 0 (0.0-2.0); Bilirubin, Total 0.4 mg/dL (0.2-1.0); Blast Cells 0; Metamyelocytes % 0; Monocytes % (manual) 0 (0-12); Myelocytes % 0; Promyelocytes % 0; Total Protein 6.7 g/dL (6.4-8.2)
[2018-10-18 10:24] LABS: Urine Bacteria NONE SEEN /hpf (None Seen); Urine Blood TRACE /uL (Negative); Urine Hyaline Cast FEW /lpf (0 - 2); Urine Mucus FEW (None Seen); Urine Specific Gravity 1.022 (1.001-1.035); Urine WBC 76 /hpf (0 - 5)
[2018-10-18 13:52] LABS: Eosinophils % (manual) 2 (0-7); Lymphocytes % (manual) 70 (10.0-50.0); Reactive Lymphocytes 5
== END | disposition home or self-care (01) ==
LOC: LAB 09:26
PROVIDERS: ATTEND Urology
DX: Z01.818 Encounter for other preprocedural examination (principal)
CPT/HCPCS: 36415; 80053; 81001; 85007; 85027; 85610; 85730

== ENCOUNTER → 2018-11-05 | Outpatient (CLI) | payer OTHER, MEDICARE ==
[2018-11-05 16:23] LABS: Hematocrit 31.9 % (36.0-46.0); Hemoglobin 10.5 g/dL (12.2-16.2); Mean Corpuscular Hemoglobin 30.1 pg (28.0-32.0); Mean Corpuscular Volume 91.2 fL (80.0-100.0); Platelet Count (auto) 368 10^3/uL (140-450); Red Cell Distribution Width 13.7 % (11.8-14.3); White Blood Cell 22.3 10^3/uL (4.4-10.8)
[2018-11-05 16:30] LABS: Basophils % (manual) 0 (0.0-2.0); Blast Cells 0; Metamyelocytes % 0; Myelocytes % 0; Promyelocytes % 0; Reactive Lymphocytes 0
[2018-11-05 16:31] LABS: Potassium 3.3 mmol/L (3.5-5.1)
[2018-11-05 16:38] LABS: Albumin 2.2 g/dL (3.4-5.0); BUN/Creatinine Ratio 18.6; Bilirubin, Total 0.2 mg/dL (0.2-1.0); Calcium 8.8 mg/dL (8.5-10.1); Total Protein 6.1 g/dL (6.4-8.2)
[2018-11-05 17:51] LABS: Band Neutrophils % (manual) 1; Eosinophils % (manual) 1 (0-7); Lymphocytes % (manual) 52 (10.0-50.0); Monocytes % (manual) 10 (0-12)
== END | disposition home or self-care (01) ==
LOC: LAB 15:48
PROVIDERS: ATTEND Internal Medicine
DX: C50.912 Malignant neoplasm of unspecified site of left female breast (principal); M81.0 Age-related osteoporosis without current pathological fracture; Z85.3 Personal history of malignant neoplasm of breast
CPT/HCPCS: 36415; 80053; 83615; 85007; 85027

== ENCOUNTER → 2018-11-19 | Outpatient (CLI) | payer OTHER, MEDICARE ==
[2018-11-19 10:25] LABS: Hematocrit 38.2 % (36.0-46.0); Hemoglobin 12.3 g/dL (12.2-16.2); Mean Corpuscular Hemoglobin 30.1 pg (28.0-32.0); Mean Corpuscular Hgb Conc. 32.3 g/dL (32.0-36.0); Mean Corpuscular Volume 93.4 fL (80.0-100.0); Platelet Count (auto) 370 10^3/uL (140-450); Red Blood Cells 4.09 10^6/uL (4.0-5.20); Red Cell Distribution Width 14.4 % (11.8-14.3)
[2018-11-19 10:34] LABS: Band Neutrophils % (manual) 0; Basophils % (manual) 0 (0.0-2.0); Blast Cells 0; Eosinophils % (manual) 0 (0-7); Metamyelocytes % 0; Monocytes % (manual) 0 (0-12); Myelocytes % 0; Promyelocytes % 0; Reactive Lymphocytes 0
[2018-11-19 10:45] LABS: Albumin 3.1 g/dL (3.4-5.0); BUN/Creatinine Ratio 22.3; Calcium 9.6 mg/dL (8.5-10.1); Phosphorus 3.2 mg/dL (2.5-4.90); Potassium 3.5 mmol/L (3.5-5.1); Uric Acid 4.7 mg/dL (2.6-6.0)
[2018-11-19 11:06] LABS: Lymphocytes % (manual) 81 (10.0-50.0)
[2018-11-19 11:11] LABS: Creatinine, Urine 287 mg/dL (30.0-125.0); Protein, Urine 104.8 mg/dL (0.0-11.9)
[2018-11-19 12:32] LABS: Urine Blood 2+ /uL (Negative); Urine Specific Gravity 1.021 (1.001-1.035)
== END | disposition home or self-care (01) ==
LOC: LAB 09:55
PROVIDERS: ATTEND Internal Medicine
DX: E55.9 Vitamin D deficiency, unspecified (principal); R80.9 Proteinuria, unspecified; M10.9 Gout, unspecified; N39.0 Urinary tract infection, site not specified; D63.1 Anemia in chronic kidney disease; N18.3 Chronic kidney disease, stage 3 (moderate); E21.3 Hyperparathyroidism, unspecified
CPT/HCPCS: 36415; 80069; 81003; 82306; 82570; 83970; 84156; 84550; 85007; 85027

== ENCOUNTER 2019-01-07 14:43 | Emergency (ER) | payer MEDICARE, OTHER ==
[~2019-01-07] VITALS: Ht 165.1 cm; Wt 55.8 kg
[2019-01-07] MEDS ORDERED: MORPHINE SULFATE 4 MG/ML SYR/VIAL IV ONE (15:30)
[2019-01-07] MEDS ORDERED: PROMETHAZINE HCL 25 MG/ML 1ML IV ONE (15:30)
[2019-01-07] MEDS ORDERED: HYDROcodone-ACET 5/325MG TAB PO ONE (16:45)
[2019-01-07 19:03] VITALS: BP 108/65
== END 2019-01-07 19:24 | disposition home or self-care (01) ==
LOC: EDBD 14:43 → ER 14:52
DX: S43.004A Unspecified dislocation of right shoulder joint, initial encounter (principal); Z90.89 Acquired absence of other organs; Z90.710 Acquired absence of both cervix and uterus; Z88.0 Allergy status to penicillin; Z88.6 Allergy status to analgesic agent
CPT/HCPCS: 23650; 73030; 93005; 96374; 96375; 99284; J2270; J2550

== ENCOUNTER → 2019-02-04 | Outpatient (CLI) | payer OTHER, MEDICARE ==
[2019-02-04 14:33] LABS: Hematocrit 36.1 % (36.0-46.0); Hemoglobin 12.3 g/dL (12.2-16.2); Mean Corpuscular Hemoglobin 30.2 pg (28.0-32.0); Mean Corpuscular Volume 88.9 fL (80.0-100.0); Platelet Count (auto) 320 10^3/uL (140-450); Red Blood Cells 4.07 10^6/uL (4.0-5.20); Red Cell Distribution Width 14.3 % (11.8-14.3); White Blood Cell 20.9 10^3/uL (4.4-10.8)
[2019-02-04 14:39] LABS: Band Neutrophils % (manual) 0; Basophils % (manual) 0 (0.0-2.0); Blast Cells 0; Eosinophils % (manual) 0 (0-7); Metamyelocytes % 0; Myelocytes % 0; Promyelocytes % 0
[2019-02-04 14:46] LABS: % Iron Saturation 14.9 % (15-50)
[2019-02-04 14:47] LABS: Albumin 3.2 g/dL (3.4-5.0); Calcium 9.4 mg/dL (8.5-10.1); Potassium 3.5 mmol/L (3.5-5.1)
[2019-02-04 14:50] LABS: BUN/Creatinine Ratio 22.9; Bilirubin, Total 0.2 mg/dL (0.2-1.0); Total Protein 6.6 g/dL (6.4-8.2)
[2019-02-04 14:56] LABS: Ferritin 11.1 ng/mL (10-322)
[2019-02-04 14:57] LABS: Folate (Folic Acid) > 24.00 ng/mL (5.38-24)
[2019-02-04 18:07] LABS: Lymphocytes % (manual) 62 (10.0-50.0); Monocytes % (manual) 2 (0-12); Reactive Lymphocytes 5
[2019-02-05 08:06] LABS: Immunoglobulin G, Serum 570 mg/dL (700-1600)
== END | disposition home or self-care (01) ==
LOC: LAB 14:10
PROVIDERS: ATTEND Internal Medicine Hematology & Oncology
DX: C50.912 Malignant neoplasm of unspecified site of left female breast (principal); Z85.3 Personal history of malignant neoplasm of breast
CPT/HCPCS: 36415; 80053; 82607; 82728; 82746; 82784; 83540; 83550; 83615; 85007; 85027

== ENCOUNTER → 2019-04-04 | Day surgery (SDC) | payer MEDICARE, OTHER ==
[2019-04-01 11:03] LABS: Basophils # (auto) 0.1 uL; Basophils % (auto) 0.5 % (0.0-2.0); Eosinophils # (auto) 0.1 uL; Eosinophils % (auto) 0.4 % (0.0-7.0); Hematocrit 38.3 % (36.0-46.0); Hemoglobin 12.5 g/dL (12.2-16.2); Lymphocytes # (auto) 15.4 uL; Mean Corpuscular Hemoglobin 29.8 pg (28.0-32.0); Mean Corpuscular Hgb Conc. 32.5 g/dL (32.0-36.0); Mean Corpuscular Volume 91.5 fL (80.0-100.0); Monocytes # (auto) 0.8 uL; Monocytes % (auto) 3.3 % (0.0-12.0); Neutrophils # (auto) 6.5 uL; Neutrophils % (auto) 28.5 % (37.0-80.0); Nucleated Red Blood Cells % 0.2 %; Platelet Count (auto) 299 10^3/uL (140-450); Red Blood Cells 4.19 10^6/uL (4.0-5.20); Red Cell Distribution Width 15.1 % (11.8-14.3); White Blood Cell 22.9 10^3/uL (4.4-10.8)
[2019-04-01 11:07] LABS: Lymphocytes % (auto) 67.3 % (10.0-50.0)
[2019-04-01 11:26] LABS: Urine Bacteria FEW /hpf (None Seen); Urine Blood Negative /uL (Negative); Urine Mucus FEW (None Seen); Urine Specific Gravity 1.024 (1.001-1.035); Urine WBC 9 /hpf (0 - 5)
[2019-04-01 11:28] LABS: Albumin 3.2 g/dL (3.4-5.0); Calcium 9.7 mg/dL (8.5-10.1); Potassium 4.3 mmol/L (3.5-5.1)
[2019-04-01 11:31] LABS: BUN/Creatinine Ratio 25.8; Bilirubin, Total 0.3 mg/dL (0.2-1.0); Total Protein 6.3 g/dL (6.4-8.2)
[2019-04-01 11:35] LABS: INR 0.96 (0.9-1.15); Partial Thromboplastin Time 23.4 sec (23.64-32.05)
[~2019-04-04] VITALS: Ht 162.6 cm; Wt 54.4 kg
[~2019-04-04] MED LIST changes: +CIPROFLOXACIN 400MG/200ML 200 ML IV ONE; +DexAMETHasone SOD PHOS 10MG/1ML VIAL INJ ONE; +IOHEXOL 300 MG/ML 100ML BOTTLE IJ ONE; +LABETALOL HCL 5 MG/ML 4ML SYRINGE IV PRN; +MEPERIDINE HCL (25 MG/ML) 1ML VIAL ONE; +MIDAZOLAM HCL 1MG/1ML-2 ML VIAL IV PRN; +MIDAZOLAM HCL 1MG/1ML-2 ML VIAL ONE; +MORPHINE SULFATE 4 MG/ML SYR/VIAL IV PRN; +ONDANSETRON HCL 4 MG/2 ML VIAL IV PRN; +PROPOFOL 10 MG/ML 20 ML IV ONE; +ePHEDrine SULFATE 50 MG/ML AMP IV PRN; +fentaNYL CITRATE 100 MCG/2 ML VL ONE
[2019-04-04 09:04] VITALS: BP 128/62
== END | disposition home or self-care (01) ==
LOC: SUR 06:11
PROVIDERS: ATTEND Urology
DX: N20.0 Calculus of kidney (principal); I10 Essential (primary) hypertension; I25.10 Atherosclerotic heart disease of native coronary artery without angina pectoris; E78.5 Hyperlipidemia, unspecified; Z79.899 Other long term (current) drug therapy; Z88.8 Allergy status to other drugs, medicaments and biological substances; Z88.0 Allergy status to penicillin; Z88.6 Allergy status to analgesic agent; Z90.710 Acquired absence of both cervix and uterus; Z90.49 Acquired absence of other specified parts of digestive tract; Z90.12 Acquired absence of left breast and nipple
CPT/HCPCS: 36415; 50590; 80053; 81001; 85025; 85610; 85730; 93005; J0744; J1100; J2175; J2250; J2704; J3010

== ENCOUNTER → 2019-05-27 | Outpatient (CLI) | payer OTHER ==
[~2019-05-27] MED LIST changes: -CIPROFLOXACIN 400MG/200ML 200 ML IV ONE; -DexAMETHasone SOD PHOS 10MG/1ML VIAL INJ ONE; -IOHEXOL 300 MG/ML 100ML BOTTLE IJ ONE; -LABETALOL HCL 5 MG/ML 4ML SYRINGE IV PRN; -MEPERIDINE HCL (25 MG/ML) 1ML VIAL ONE; -MIDAZOLAM HCL 1MG/1ML-2 ML VIAL IV PRN; -MIDAZOLAM HCL 1MG/1ML-2 ML VIAL ONE; -MORPHINE SULFATE 4 MG/ML SYR/VIAL IV PRN; -ONDANSETRON HCL 4 MG/2 ML VIAL IV PRN; -PROPOFOL 10 MG/ML 20 ML IV ONE; -ePHEDrine SULFATE 50 MG/ML AMP IV PRN; -fentaNYL CITRATE 100 MCG/2 ML VL ONE
[2019-05-27 10:00] LABS: Hematocrit 41.5 % (36.0-46.0); Hemoglobin 13.6 g/dL (12.2-16.2); Mean Corpuscular Hemoglobin 30.3 pg (28.0-32.0); Mean Corpuscular Hgb Conc. 32.8 g/dL (32.0-36.0); Mean Corpuscular Volume 92.3 fL (80.0-100.0); Platelet Count (auto) 297 10^3/uL (140-450); Red Cell Distribution Width 13.9 % (11.8-14.3); White Blood Cell 19.4 10^3/uL (4.4-10.8)
[2019-05-27 10:02] LABS: Band Neutrophils % (manual) 0; Basophils % (manual) 0 (0.0-2.0); Blast Cells 0; Eosinophils % (manual) 0 (0-7); Metamyelocytes % 0; Myelocytes % 0; Promyelocytes % 0; Reactive Lymphocytes 0
[2019-05-27 10:04] LABS: Urine Bacteria FEW /hpf (None Seen); Urine Blood Negative /uL (Negative); Urine Hyaline Cast MOD /lpf (0 - 2); Urine Mucus FEW (None Seen); Urine Specific Gravity 1.021 (1.001-1.035); Urine WBC 108 /hpf (0 - 5)
[2019-05-27 10:26] LABS: Albumin 3.3 g/dL (3.4-5.0); Calcium 9.7 mg/dL (8.5-10.1); Potassium 3.6 mmol/L (3.5-5.1)
[2019-05-27 10:30] LABS: BUN/Creatinine Ratio 17.6
[2019-05-27 11:24] LABS: Lymphocytes % (manual) 72 (10.0-50.0); Monocytes % (manual) 3 (0-12)
== END | disposition home or self-care (01) ==
LOC: LAB 09:29
PROVIDERS: ATTEND Internal Medicine
DX: N18.3 Chronic kidney disease, stage 3 (moderate) (principal); D63.1 Anemia in chronic kidney disease; E56.9 Vitamin deficiency, unspecified; M10.9 Gout, unspecified; R80.9 Proteinuria, unspecified
CPT/HCPCS: 36415; 80061; 80069; 81001; 82570; 83970; 84550; 85007; 85027

== ENCOUNTER → 2019-06-17 | Outpatient (CLI) | payer OTHER ==
[2019-06-17 09:18] LABS: Hematocrit 37.5 % (36.0-46.0); Hemoglobin 12.4 g/dL (12.2-16.2); Mean Corpuscular Hemoglobin 30.2 pg (28.0-32.0); Mean Corpuscular Hgb Conc. 32.9 g/dL (32.0-36.0); Mean Corpuscular Volume 91.8 fL (80.0-100.0); Platelet Count (auto) 285 10^3/uL (140-450); Red Blood Cells 4.09 10^6/uL (4.0-5.20); Red Cell Distribution Width 13.7 % (11.8-14.3); White Blood Cell 19.9 10^3/uL (4.4-10.8)
[2019-06-17 09:19] LABS: Band Neutrophils % (manual) 0; Basophils % (manual) 0 (0.0-2.0); Blast Cells 0; Eosinophils % (manual) 0 (0-7); Metamyelocytes % 0; Myelocytes % 0; Promyelocytes % 0; Reactive Lymphocytes 0
[2019-06-17 09:34] LABS: Albumin 3.1 g/dL (3.4-5.0); Calcium 9.4 mg/dL (8.5-10.1); Potassium 3.5 mmol/L (3.5-5.1)
[2019-06-17 09:38] LABS: BUN/Creatinine Ratio 22.6; Bilirubin, Total 0.3 mg/dL (0.2-1.0); Total Protein 6.3 g/dL (6.4-8.2)
[2019-06-17 12:16] LABS: Lymphocytes % (manual) 76 (10.0-50.0); Monocytes % (manual) 3 (0-12)
[2019-06-18 01:32] LABS: Ferritin 6.9 ng/mL (10-322)
[2019-06-18 04:14] LABS: Folate (Folic Acid) 16.54 ng/mL (5.38-24)
== END | disposition home or self-care (01) ==
LOC: LAB 09:00
PROVIDERS: ATTEND Internal Medicine
DX: C50.912 Malignant neoplasm of unspecified site of left female breast (principal); Z85.3 Personal history of malignant neoplasm of breast
CPT/HCPCS: 36415; 80053; 82607; 82728; 82746; 83540; 83615; 85007; 85027; 86300

== ENCOUNTER → 2019-07-09 | Day surgery (SDC) | payer OTHER ==
[2019-07-05 14:25] LABS: Hematocrit 45.9 % (36.0-46.0); Hemoglobin 14.8 g/dL (12.2-16.2); Mean Corpuscular Hemoglobin 29.7 pg (28.0-32.0); Mean Corpuscular Hgb Conc. 32.3 g/dL (32.0-36.0); Mean Corpuscular Volume 91.9 fL (80.0-100.0); Platelet Count (auto) 372 10^3/uL (140-450); Red Cell Distribution Width 13.7 % (11.8-14.3); White Blood Cell 23.7 10^3/uL (4.4-10.8)
[2019-07-05 14:27] LABS: Band Neutrophils % (manual) 0; Basophils % (manual) 0 (0.0-2.0); Blast Cells 0; Eosinophils % (manual) 0 (0-7); Metamyelocytes % 0; Myelocytes % 0; Promyelocytes % 0
[2019-07-05 14:28] LABS: Urine Bacteria NONE SEEN /hpf (None Seen); Urine Blood Negative /uL (Negative); Urine Hyaline Cast FEW /lpf (0 - 2); Urine Mucus FEW (None Seen); Urine Specific Gravity 1.018 (1.001-1.035); Urine WBC 15 /hpf (0 - 5)
[2019-07-05 14:40] LABS: INR 0.96 (0.9-1.15); Partial Thromboplastin Time 25.9 sec (23.64-32.05)
[2019-07-05 14:43] LABS: Albumin 3.8 g/dL (3.4-5.0); Calcium 10.5 mg/dL (8.5-10.1); Potassium 3.4 mmol/L (3.5-5.1)
[2019-07-05 14:46] LABS: Lymphocytes % (manual) 72 (10.0-50.0); Monocytes % (manual) 3 (0-12); Reactive Lymphocytes 1
[2019-07-05 14:47] LABS: BUN/Creatinine Ratio 20.6; Bilirubin, Total 0.3 mg/dL (0.2-1.0); Total Protein 7.6 g/dL (6.4-8.2)
[~2019-07-09] VITALS: Ht 162.6 cm; Wt 56.2 kg
[~2019-07-09] MED LIST changes: +DexAMETHasone SOD PHOS 10MG/1ML VIAL INJ ONE; +LABETALOL HCL 5 MG/ML 4ML SYRINGE IV PRN; +LIDOCAINE 1% HCL (LOCAL ANESTH.) INJ 20ML MDV ONE; +MEPERIDINE HCL (50 MG/ML) 1 ML VIAL ONE; +MIDAZOLAM HCL 1MG/1ML-2 ML VIAL IV PRN; +MIDAZOLAM HCL 1MG/1ML-2 ML VIAL ONE; +MORPHINE SULF INJ 2 MG/ML SYRINGE 1ML IV ONE; +MORPHINE SULF INJ 2 MG/ML SYRINGE 1ML ONE; +MORPHINE SULFATE 4 MG/ML SYR/VIAL IV PRN; +ONDANSETRON HCL 4 MG/2 ML VIAL IV PRN; +PHENYLEPHRINE HCL 10 MG/ML VL ONE; +PROPOFOL 10 MG/ML 20 ML IV ONE; +ROPIVACAINE 0.5% (5MG/ML) 20ML AMPULE IJ ONE; +SUCCINYLCHOLINE CHLORIDE 20 MG/ML 10ML VIAL IV ONE; +ceFAZolin 1GM/50ML 50 ML IV ONE; +ePHEDrine SULFATE 50 MG/ML AMP IV PRN; +fentaNYL CITRATE 100 MCG/2 ML VL ONE
[2019-07-09 12:25] VITALS: BP 129/64
== END | disposition home or self-care (01) ==
LOC: SUR 07:10
PROVIDERS: ATTEND Orthopaedic Surgery
DX: S42.201A Unspecified fracture of upper end of right humerus, initial encounter for closed fracture (principal); M75.101 Unspecified rotator cuff tear or rupture of right shoulder, not specified as traumatic; X58.XXXA Exposure to other specified factors, initial encounter; Y93.89 Activity, other specified; Y92.89 Other specified places as the place of occurrence of the external cause; Y99.8 Other external cause status; Z85.3 Personal history of malignant neoplasm of breast; Z90.710 Acquired absence of both cervix and uterus; Z88.6 Allergy status to analgesic agent; Z88.0 Allergy status to penicillin; Z79.899 Other long term (current) drug therapy; Z98.890 Other specified postprocedural states
CPT/HCPCS: 23071; 23420; 36415; 80053; 81001; 85007; 85027; 85610; 85730; 88304; J0330; J0690; J1100; J2001; J2175; J2250; J2270; J2370; J2704; J2795; J3010; A4565

== ENCOUNTER → 2019-10-25 | Day surgery (SDC) | payer OTHER ==
[2019-10-22 10:22] LABS: Hematocrit 39.9 % (36.0-46.0); Mean Corpuscular Hemoglobin 29.9 pg (28.0-32.0); Mean Corpuscular Hgb Conc. 32.6 g/dL (32.0-36.0); Mean Corpuscular Volume 91.8 fL (80.0-100.0); Platelet Count (auto) 265 10^3/uL (140-450); Red Blood Cells 4.35 10^6/uL (4.0-5.20); Red Cell Distribution Width 14.8 % (11.8-14.3); White Blood Cell 21.4 10^3/uL (4.4-10.8)
[2019-10-22 10:34] LABS: INR 0.95 (0.9-1.15); Partial Thromboplastin Time 24.4 sec (23.0-31.2)
[2019-10-22 10:38] LABS: Band Neutrophils % (manual) 0; Basophils % (manual) 0 (0.0-2.0); Blast Cells 0; Metamyelocytes % 0; Monocytes % (manual) 0 (0-12); Myelocytes % 0; Promyelocytes % 0; Reactive Lymphocytes 0
[2019-10-22 11:46] LABS: Eosinophils % (manual) 1 (0-7); Lymphocytes % (manual) 68 (10.0-50.0)
[~2019-10-25] VITALS: Ht 165.1 cm; Wt 55.3 kg
[~2019-10-25] MED LIST changes: -DexAMETHasone SOD PHOS 10MG/1ML VIAL INJ ONE; -LABETALOL HCL 5 MG/ML 4ML SYRINGE IV PRN; -LIDOCAINE 1% HCL (LOCAL ANESTH.) INJ 20ML MDV ONE; -MEPERIDINE HCL (50 MG/ML) 1 ML VIAL ONE; -MIDAZOLAM HCL 1MG/1ML-2 ML VIAL IV PRN; -MIDAZOLAM HCL 1MG/1ML-2 ML VIAL ONE; -MORPHINE SULF INJ 2 MG/ML SYRINGE 1ML IV ONE; -MORPHINE SULF INJ 2 MG/ML SYRINGE 1ML ONE; -MORPHINE SULFATE 4 MG/ML SYR/VIAL IV PRN; +MULT-1018 PO; -MULTTAB61 PO; -ONDANSETRON HCL 4 MG/2 ML VIAL IV PRN; -PHENYLEPHRINE HCL 10 MG/ML VL ONE; -PROPOFOL 10 MG/ML 20 ML IV ONE; -ROPIVACAINE 0.5% (5MG/ML) 20ML AMPULE IJ ONE; -SUCCINYLCHOLINE CHLORIDE 20 MG/ML 10ML VIAL IV ONE; -ceFAZolin 1GM/50ML 50 ML IV ONE; +diphenhdrAMINE HCL 50 MG/1 ML VL ONE; -ePHEDrine SULFATE 50 MG/ML AMP IV PRN; -fentaNYL CITRATE 100 MCG/2 ML VL ONE
[2019-10-25] MEDS: MIDAZOLAM HCL 5 MG/ML-1ML VIAL ONE ×3 (13:08→13:15)
[2019-10-25] MEDS: fentaNYL CITRATE 100 MCG/2 ML VL ONE ×3 (13:08→13:18)
[2019-10-25 14:26] VITALS: BP 110/60
== END | disposition home or self-care (01) ==
LOC: GI 10:46
PROVIDERS: ATTEND Internal Medicine Gastroenterology
DX: Z12.11 Encounter for screening for malignant neoplasm of colon (principal); D12.3 Benign neoplasm of transverse colon; D12.4 Benign neoplasm of descending colon; D12.0 Benign neoplasm of cecum; K64.8 Other hemorrhoids; Z90.710 Acquired absence of both cervix and uterus; Z85.038 Personal history of other malignant neoplasm of large intestine; Z90.49 Acquired absence of other specified parts of digestive tract; Z80.0 Family history of malignant neoplasm of digestive organs; Z79.899 Other long term (current) drug therapy; Z98.890 Other specified postprocedural states; Z88.0 Allergy status to penicillin; Z88.6 Allergy status to analgesic agent; Z11.59 Encounter for screening for other viral diseases
CPT/HCPCS: 36415; 45385; 85007; 85027; 85610; 85730; 88305; J1200; J2250; J3010; J7030; U0003; 99152; 99153

== ENCOUNTER → 2019-11-12 | Outpatient (CLI) | payer OTHER ==
[~2019-11-12] MED LIST changes: -diphenhdrAMINE HCL 50 MG/1 ML VL ONE
[2019-11-12 09:45] LABS: Hematocrit 39.9 % (36.0-46.0); Mean Corpuscular Hemoglobin 29.7 pg (28.0-32.0); Mean Corpuscular Hgb Conc. 32.6 g/dL (32.0-36.0); Mean Corpuscular Volume 91.1 fL (80.0-100.0); Platelet Count (auto) 327 10^3/uL (140-450); Red Blood Cells 4.38 10^6/uL (4.0-5.20); Red Cell Distribution Width 14.4 % (11.8-14.3); White Blood Cell 21.4 10^3/uL (4.4-10.8)
[2019-11-12 09:49] LABS: Band Neutrophils % (manual) 0; Basophils % (manual) 0 (0.0-2.0); Blast Cells 0; Eosinophils % (manual) 0 (0-7); Metamyelocytes % 0; Myelocytes % 0; Promyelocytes % 0; Reactive Lymphocytes 0
[2019-11-12 10:05] LABS: Lymphocytes % (manual) 69 (10.0-50.0); Monocytes % (manual) 3 (0-12)
[2019-11-12 10:13] LABS: Albumin 3.4 g/dL (3.4-5.0)
[2019-11-12 10:19] LABS: BUN/Creatinine Ratio 24.5; Bilirubin, Total 0.4 mg/dL (0.2-1.0); Total Protein 6.4 g/dL (6.4-8.2)
[2019-11-12 10:22] LABS: Potassium 2.9 mmol/L (3.5-5.1)
== END | disposition home or self-care (01) ==
LOC: LAB 09:34
PROVIDERS: ATTEND Physician Assistant
DX: I10 Essential (primary) hypertension (principal); K21.9 Gastro-esophageal reflux disease without esophagitis; N13.30 Unspecified hydronephrosis; E78.5 Hyperlipidemia, unspecified; R53.82 Chronic fatigue, unspecified
CPT/HCPCS: 36415; 80053; 80061; 85007; 85027

== ENCOUNTER → 2019-12-23 | Outpatient (CLI) | payer OTHER ==
[2019-12-23 15:32] LABS: Urine Blood Negative /uL (Negative); Urine Mucus FEW (None Seen); Urine Specific Gravity 1.021 (1.001-1.035); Urine WBC 12 /hpf (0 - 5)
[2019-12-23 15:35] LABS: Urine Bacteria FEW /hpf (None Seen)
[2019-12-23 16:55] LABS: Albumin 3.2 g/dL (3.4-5.0); BUN/Creatinine Ratio 15.6; Calcium 9.2 mg/dL (8.5-10.1); Phosphorus 3.2 mg/dL (2.5-4.90); Potassium 4.2 mmol/L (3.5-5.1); Protein, Urine 23.4 mg/dL (0.0-11.9)
[2019-12-23 17:25] LABS: Hematocrit 38.6 % (36.0-46.0); Hemoglobin 12.7 g/dL (12.2-16.2); Mean Corpuscular Hemoglobin 30.4 pg (28.0-32.0); Mean Corpuscular Volume 92.3 fL (80.0-100.0); Platelet Count (auto) 317 10^3/uL (140-450); Red Blood Cells 4.19 10^6/uL (4.0-5.20); Red Cell Distribution Width 13.9 % (11.8-14.3); White Blood Cell 21.6 10^3/uL (4.4-10.8)
[2019-12-23 17:26] LABS: Band Neutrophils % (manual) 0; Basophils % (manual) 0 (0.0-2.0); Blast Cells 0; Metamyelocytes % 0; Myelocytes % 0; Promyelocytes % 0
[2019-12-23 17:43] LABS: Eosinophils % (manual) 1 (0-7); Lymphocytes % (manual) 63 (10.0-50.0); Monocytes % (manual) 8 (0-12); Reactive Lymphocytes 3
== END | disposition home or self-care (01) ==
LOC: LAB 15:00
PROVIDERS: ATTEND Internal Medicine
DX: E83.39 Other disorders of phosphorus metabolism (principal); E56.9 Vitamin deficiency, unspecified; N18.30 Chronic kidney disease, stage 3 unspecified; D63.1 Anemia in chronic kidney disease; E78.5 Hyperlipidemia, unspecified
CPT/HCPCS: 36415; 80069; 81001; 82306; 82570; 83970; 84156; 84550; 85007; 85027

== ENCOUNTER → 2019-12-27 | Day surgery (SDC) | payer OTHER ==
[2019-12-23 15:48] LABS: INR 0.95 (0.9-1.15); Partial Thromboplastin Time 23.7 sec (23.0-31.2)
[2019-12-23 16:26] LABS: Hematocrit 38.6 % (36.0-46.0); Hemoglobin 12.6 g/dL (12.2-16.2); Mean Corpuscular Hemoglobin 30.2 pg (28.0-32.0); Mean Corpuscular Hgb Conc. 32.7 g/dL (32.0-36.0); Mean Corpuscular Volume 92.3 fL (80.0-100.0); Platelet Count (auto) 321 10^3/uL (140-450); Red Blood Cells 4.18 10^6/uL (4.0-5.20); Red Cell Distribution Width 13.9 % (11.8-14.3); White Blood Cell 20.9 10^3/uL (4.4-10.8)
[2019-12-23 16:28] LABS: Band Neutrophils % (manual) 0; Basophils % (manual) 0 (0.0-2.0); Blast Cells 0; Metamyelocytes % 0; Myelocytes % 0; Promyelocytes % 0
[2019-12-23 17:46] LABS: Eosinophils % (manual) 1 (0-7); Lymphocytes % (manual) 63 (10.0-50.0); Monocytes % (manual) 8 (0-12); Reactive Lymphocytes 3
[~2019-12-27] VITALS: Ht 165.1 cm; Wt 55.8 kg
[~2019-12-27] MED LIST changes: +LIDOCAINE VISCOUS 2% 15ML UD ONE; +SODIUM CHLORIDE LOCK 10 ML ONE; +diphenhdrAMINE HCL 50 MG/1 ML VL ONE
[2019-12-27] MEDS: fentaNYL CITRATE 100 MCG/2 ML VL ONE ×2 (14:18→14:19)
[2019-12-27] MEDS: MIDAZOLAM HCL 5 MG/ML-1ML VIAL ONE ×2 (14:18→14:19)
[2019-12-27 15:05] VITALS: BP 103/56
== END | disposition home or self-care (01) ==
LOC: GI 11:54
PROVIDERS: ATTEND Internal Medicine Gastroenterology
DX: R11.2 Nausea with vomiting, unspecified (principal); K22.10 Ulcer of esophagus without bleeding; K44.9 Diaphragmatic hernia without obstruction or gangrene; K29.60 Other gastritis without bleeding; K21.9 Gastro-esophageal reflux disease without esophagitis; Z85.3 Personal history of malignant neoplasm of breast; Z85.118 Personal history of other malignant neoplasm of bronchus and lung; Z90.49 Acquired absence of other specified parts of digestive tract; Z90.10 Acquired absence of unspecified breast and nipple; Z88.0 Allergy status to penicillin; Z88.6 Allergy status to analgesic agent; Z79.899 Other long term (current) drug therapy; Z90.710 Acquired absence of both cervix and uterus; Z20.828 Contact with and (suspected) exposure to other viral communicable diseases; Z80.8 Family history of malignant neoplasm of other organs or systems
CPT/HCPCS: 36415; 43239; 85007; 85027; 85610; 85730; J2250; J3010; J7030; U0003

== ENCOUNTER → 2020-01-22 | Outpatient (CLI) | payer OTHER ==
[~2020-01-22] MED LIST changes: -LIDOCAINE VISCOUS 2% 15ML UD ONE; -SODIUM CHLORIDE LOCK 10 ML ONE; -diphenhdrAMINE HCL 50 MG/1 ML VL ONE
[2020-01-22 13:20] LABS: Hematocrit 41.1 % (36.0-46.0); Hemoglobin 13.7 g/dL (12.2-16.2); Mean Corpuscular Hemoglobin 30.3 pg (28.0-32.0); Mean Corpuscular Hgb Conc. 33.4 g/dL (32.0-36.0); Mean Corpuscular Volume 90.7 fL (80.0-100.0); Platelet Count (auto) 315 10^3/uL (140-450); Red Blood Cells 4.53 10^6/uL (4.0-5.20); Red Cell Distribution Width 13.9 % (11.8-14.3); White Blood Cell 23.2 10^3/uL (4.4-10.8)
[2020-01-22 13:22] LABS: Band Neutrophils % (manual) 0; Basophils % (manual) 0 (0.0-2.0); Blast Cells 0; Eosinophils % (manual) 0 (0-7); Metamyelocytes % 0; Myelocytes % 0; Promyelocytes % 0
[2020-01-22 13:35] LABS: Albumin 3.2 g/dL (3.4-5.0); BUN/Creatinine Ratio 22.3; Calcium 9.6 mg/dL (8.5-10.1); Phosphorus 2.5 mg/dL (2.5-4.90); Potassium 3.1 mmol/L (3.5-5.1)
[2020-01-22 16:07] LABS: Lymphocytes % (manual) 63 (10.0-50.0); Monocytes % (manual) 3 (0-12); Reactive Lymphocytes 2
== END | disposition home or self-care (01) ==
LOC: LAB 12:54
PROVIDERS: ATTEND Internal Medicine
DX: N18.30 Chronic kidney disease, stage 3 unspecified (principal); D63.1 Anemia in chronic kidney disease
CPT/HCPCS: 36415; 80069; 85007; 85027

== ENCOUNTER → 2020-05-19 | Outpatient (CLI) | payer OTHER ==
[2020-05-19 11:03] LABS: Hematocrit 37.4 % (36.0-46.0); Hemoglobin 12.5 g/dL (12.2-16.2); Mean Corpuscular Hemoglobin 30.2 pg (28.0-32.0); Mean Corpuscular Hgb Conc. 33.5 g/dL (32.0-36.0); Mean Corpuscular Volume 90.2 fL (80.0-100.0); Platelet Count (auto) 317 10^3/uL (140-450); Red Blood Cells 4.14 10^6/uL (4.0-5.20); Red Cell Distribution Width 13.7 % (11.8-14.3); White Blood Cell 21.3 10^3/uL (4.4-10.8)
[2020-05-19 11:10] LABS: Band Neutrophils % (manual) 0; Basophils % (manual) 0 (0.0-2.0); Blast Cells 0; Metamyelocytes % 0; Monocytes % (manual) 0 (0-12); Myelocytes % 0; Promyelocytes % 0; Reactive Lymphocytes 0
[2020-05-19 11:11] LABS: Urine Bacteria NONE SEEN /hpf (None Seen); Urine Blood Negative /uL (Negative); Urine Hyaline Cast FEW /lpf (0 - 2); Urine Specific Gravity 1.022 (1.001-1.035); Urine WBC 13 /hpf (0 - 5)
[2020-05-19 11:22] LABS: Protein, Urine 39.1 mg/dL (0.0-11.9)
[2020-05-19 11:40] LABS: Albumin 3.1 g/dL (3.4-5.0); Calcium 9.4 mg/dL (8.5-10.1); Potassium 3.1 mmol/L (3.5-5.1)
[2020-05-19 11:42] LABS: BUN/Creatinine Ratio 25.3; Uric Acid 4.4 mg/dL (2.6-6.0)
[2020-05-19 11:56] LABS: Eosinophils % (manual) 1 (0-7); Lymphocytes % (manual) 68 (10.0-50.0)
== END | disposition home or self-care (01) ==
LOC: LAB 10:46
PROVIDERS: ATTEND Internal Medicine
DX: N18.31 Chronic kidney disease, stage 3a (principal); D63.1 Anemia in chronic kidney disease; E21.3 Hyperparathyroidism, unspecified; E78.5 Hyperlipidemia, unspecified; M10.9 Gout, unspecified; R80.9 Proteinuria, unspecified; E56.9 Vitamin deficiency, unspecified
CPT/HCPCS: 36415; 80069; 81001; 82306; 82570; 83970; 84156; 84550; 85007; 85027

== ENCOUNTER → 2020-09-02 | Outpatient (CLI) | payer OTHER ==
[2020-09-02 08:32] LABS: Hemoglobin 13.6 g/dL (12.2-16.2); Mean Corpuscular Hemoglobin 30.3 pg (28.0-32.0)
[2020-09-02 08:37] LABS: Hematocrit 40.5 % (36.0-46.0); Mean Corpuscular Hgb Conc. 33.7 g/dL (32.0-36.0); Platelet Count (auto) 343 10^3/uL (140-450); Red Cell Distribution Width 14.5 % (11.8-14.3)
[2020-09-02 09:05] LABS: Albumin 3.3 g/dL (3.4-5.0); Calcium 9.4 mg/dL (8.5-10.1)
[2020-09-02 09:09] LABS: BUN/Creatinine Ratio 29.4; Bilirubin, Total 0.4 mg/dL (0.2-1.0); Total Protein 6.9 g/dL (6.4-8.2)
[2020-09-02 11:34] LABS: Potassium 2.9 mmol/L (3.5-5.1)
[2020-09-02 11:35] LABS: Basophils % (manual) 0 (0.0-2.0); Blast Cells 0; Eosinophils % (manual) 0 (0-7); Metamyelocytes % 0; Myelocytes % 0; Promyelocytes % 0; White Blood Cell 31.3 10^3/uL (4.4-10.8)
[2020-09-02 13:00] LABS: Band Neutrophils % (manual) 5; Lymphocytes % (manual) 56 (10.0-50.0); Monocytes % (manual) 2 (0-12); Reactive Lymphocytes 9
[2020-09-03 09:07] LABS: Immunoglobulin G, Serum 596 mg/dL (586-1602)
== END | disposition home or self-care (01) ==
LOC: LAB 07:58
PROVIDERS: ATTEND Internal Medicine
DX: C91.10 Chronic lymphocytic leukemia of B-cell type not having achieved remission (principal); Z88.0 Allergy status to penicillin; Z88.8 Allergy status to other drugs, medicaments and biological substances
CPT/HCPCS: 36415; 80053; 82784; 83615; 85007; 85027; 85049

== ENCOUNTER → 2020-10-08 | Outpatient (CLI) | payer OTHER ==
[2020-10-08 14:41] LABS: Hematocrit 36.5 % (36.0-46.0); Hemoglobin 12.1 g/dL (12.2-16.2); Mean Corpuscular Hemoglobin 29.7 pg (28.0-32.0); Mean Corpuscular Hgb Conc. 33.1 g/dL (32.0-36.0); Mean Corpuscular Volume 89.9 fL (80.0-100.0); Red Blood Cells 4.05 10^6/uL (4.0-5.20); White Blood Cell 18.5 10^3/uL (4.4-10.8)
[2020-10-08 14:47] LABS: Basophils % (manual) 0 (0.0-2.0); Blast Cells 0; Metamyelocytes % 0; Myelocytes % 0; Promyelocytes % 0; Reactive Lymphocytes 0
[2020-10-08 15:06] LABS: Albumin 2.8 g/dL (3.4-5.0); Calcium 8.9 mg/dL (8.5-10.1); Potassium 4.1 mmol/L (3.5-5.1)
[2020-10-08 15:09] LABS: BUN/Creatinine Ratio 20.2; Bilirubin, Total 0.2 mg/dL (0.2-1.0); Total Protein 6.2 g/dL (6.4-8.2)
[2020-10-08 16:54] LABS: Band Neutrophils % (manual) 2; Eosinophils % (manual) 3 (0-7); Lymphocytes % (manual) 58 (10.0-50.0)
[2020-10-08 16:55] LABS: Monocytes % (manual) 7 (0-12)
== END | disposition home or self-care (01) ==
LOC: LAB 14:30
PROVIDERS: ATTEND Internal Medicine
DX: C91.10 Chronic lymphocytic leukemia of B-cell type not having achieved remission (principal); Z88.0 Allergy status to penicillin; Z88.8 Allergy status to other drugs, medicaments and biological substances
CPT/HCPCS: 36415; 80053; 83615; 85007; 85027

== ENCOUNTER → 2021-03-01 | Outpatient (CLI) | payer OTHER ==
[2021-03-01 09:18] LABS: Hematocrit 36.4 % (36.0-46.0); Hemoglobin 11.7 g/dL (12.2-16.2); Mean Corpuscular Hemoglobin 29.1 pg (28.0-32.0); Mean Corpuscular Hgb Conc. 32.2 g/dL (32.0-36.0); Mean Corpuscular Volume 90.4 fL (80.0-100.0); Red Blood Cells 4.02 10^6/uL (4.0-5.20); White Blood Cell 20.6 10^3/uL (4.4-10.8)
[2021-03-01 09:22] LABS: Band Neutrophils % (manual) 0; Basophils % (manual) 0 (0.0-2.0); Blast Cells 0; Eosinophils % (manual) 0 (0-7); Metamyelocytes % 0; Myelocytes % 0; Promyelocytes % 0
[2021-03-01 09:48] LABS: Albumin 3.1 g/dL (3.4-5.0); Calcium 9.4 mg/dL (8.5-10.1)
[2021-03-01 09:50] LABS: BUN/Creatinine Ratio 26.7; Bilirubin, Total 0.3 mg/dL (0.2-1.0)
[2021-03-01 09:58] LABS: Lymphocytes % (manual) 71 (10.0-50.0); Monocytes % (manual) 3 (0-12); Reactive Lymphocytes 5
[2021-03-01 10:00] LABS: Thyroid Stimulating Hormone 3.49 uIU/mL (0.358-3.74)
[2021-03-01 14:05] LABS: Potassium 2.9 mmol/L (3.5-5.1)
== END | disposition home or self-care (01) ==
LOC: LAB 09:00
PROVIDERS: ATTEND Internal Medicine
DX: C91.10 Chronic lymphocytic leukemia of B-cell type not having achieved remission (principal)
CPT/HCPCS: 36415; 80053; 83615; 83970; 84436; 84443; 85007; 85027

== ENCOUNTER → 2021-04-30 | Outpatient (CLI) | payer OTHER ==
[2021-04-30 11:13] LABS: Potassium 3.4 mmol/L (3.5-5.1)
[2021-04-30 11:16] LABS: Hematocrit 37.1 % (36.0-46.0); Hemoglobin 12.4 g/dL (12.2-16.2); Mean Corpuscular Hgb Conc. 33.3 g/dL (32.0-36.0); Mean Corpuscular Volume 90.2 fL (80.0-100.0); Red Blood Cells 4.12 10^6/uL (4.0-5.20); Red Cell Distribution Width 14.1 % (11.8-14.3); White Blood Cell 17.6 10^3/uL (4.4-10.8)
[2021-04-30 11:30] LABS: Band Neutrophils % (manual) 0; Basophils % (manual) 0 (0.0-2.0); Blast Cells 0; Metamyelocytes % 0; Myelocytes % 0; Promyelocytes % 0
[2021-04-30 11:48] LABS: Albumin 3.2 g/dL (3.4-5.0); BUN/Creatinine Ratio 20.8; Bilirubin, Total 0.3 mg/dL (0.2-1.0); Calcium 9.7 mg/dL (8.5-10.1); Total Protein 6.2 g/dL (6.4-8.2)
[2021-04-30 12:20] LABS: Eosinophils % (manual) 1 (0-7); Lymphocytes % (manual) 73 (10.0-50.0); Monocytes % (manual) 3 (0-12); Reactive Lymphocytes 4
== END | disposition home or self-care (01) ==
LOC: LAB 08:57
PROVIDERS: ATTEND Nurse Practitioner Family
DX: K21.9 Gastro-esophageal reflux disease without esophagitis (principal); E78.5 Hyperlipidemia, unspecified; N18.30 Chronic kidney disease, stage 3 unspecified; C91.10 Chronic lymphocytic leukemia of B-cell type not having achieved remission
CPT/HCPCS: 36415; 80053; 80061; 85007; 85027

== ENCOUNTER → 2021-05-24 | Outpatient (CLI) | payer OTHER ==
[~2021-05-24] MED LIST changes: +ALEN70TA2 PO; +FAMO20TA10 PO; +PANT40TA2 PO
[2021-05-24 08:56] LABS: Hematocrit 38.1 % (36.0-46.0); Hemoglobin 12.7 g/dL (12.2-16.2); Mean Corpuscular Hemoglobin 29.8 pg (28.0-32.0); Mean Corpuscular Hgb Conc. 33.4 g/dL (32.0-36.0); Mean Corpuscular Volume 89.2 fL (80.0-100.0); Red Blood Cells 4.27 10^6/uL (4.0-5.20); Red Cell Distribution Width 14.2 % (11.8-14.3)
[2021-05-24 08:57] LABS: Urine Blood Negative /uL (Negative); Urine Specific Gravity 1.022 (1.001-1.035)
[2021-05-24 09:44] LABS: Potassium 3.5 mmol/L (3.5-5.1)
[2021-05-24 09:53] LABS: Albumin 3.2 g/dL (3.4-5.0); Calcium 9.3 mg/dL (8.5-10.1); Phosphorus 2.2 mg/dL (2.5-4.90)
[2021-05-24 10:02] LABS: Creatinine, Urine 260 mg/dL (30.0-125.0); Protein, Urine 64.7 mg/dL (0.0-11.9)
[2021-05-24 10:44] LABS: Basophils % (manual) 0 (0.0-2.0); Blast Cells 0; Eosinophils % (manual) 0 (0-7); Metamyelocytes % 0; Myelocytes % 0; Promyelocytes % 0
[2021-05-24 13:18] LABS: Band Neutrophils % (manual) 2; Lymphocytes % (manual) 54 (10.0-50.0); Monocytes % (manual) 5 (0-12); Reactive Lymphocytes 15
== END | disposition home or self-care (01) ==
LOC: LAB 08:22
PROVIDERS: ATTEND Internal Medicine
DX: D63.1 Anemia in chronic kidney disease (principal); N18.31 Chronic kidney disease, stage 3a; E56.9 Vitamin deficiency, unspecified; R80.9 Proteinuria, unspecified; R82.90 Unspecified abnormal findings in urine
CPT/HCPCS: 36415; 80069; 81003; 82306; 82570; 83970; 84156; 84550; 85007; 85027

== ENCOUNTER → 2021-05-28 | Day surgery (SDC) | payer OTHER ==
[2021-05-26 09:48] LABS: Basophils # (auto) 0.1 10 ^3/uL (0-0.2); Basophils % (auto) 0.4 % (0.0-2.0); Eosinophils # (auto) 0.1 10 ^3/uL (0-0.8); Eosinophils % (auto) 0.6 % (0.0-7.0); Hematocrit 37.5 % (36.0-46.0); Hemoglobin 12.6 g/dL (12.2-16.2); Mean Corpuscular Hemoglobin 30.1 pg (28.0-32.0); Mean Corpuscular Hgb Conc. 33.7 g/dL (32.0-36.0); Mean Corpuscular Volume 89.2 fL (80.0-100.0); Monocytes # (auto) 0.5 10 ^3/uL (0-1.3); Monocytes % (auto) 2.6 % (0.0-12.0); Neutrophils % (auto) 25.4 % (37.0-80.0); Nucleated Red Blood Cells % 0.3 %; Red Cell Distribution Width 14.4 % (11.8-14.3); White Blood Cell 19.8 10^3/uL (4.4-10.8)
[2021-05-26 10:36] LABS: INR 0.99 (0.9-1.15); Partial Thromboplastin Time 26.2 sec (23.6-33.0)
[2021-05-26 10:47] LABS: Potassium 3.7 mmol/L (3.5-5.1)
[2021-05-26 10:53] LABS: Albumin 3.3 g/dL (3.4-5.0); BUN/Creatinine Ratio 22.3; Bilirubin, Total 0.4 mg/dL (0.2-1.0); Calcium 9.8 mg/dL (8.5-10.1); Total Protein 6.3 g/dL (6.4-8.2)
[~2021-05-28] VITALS: Ht 162.6 cm; Wt 56.7 kg
[~2021-05-28] MED LIST changes: +LIDOCAINE VISCOUS 2% 15ML UD ONE; +MIDAZOLAM HCL 5 MG/ML-1ML VIAL ONE
[2021-05-28] MEDS: fentaNYL CITRATE 100 MCG/2 ML VL ONE ×6 (14:16→14:51)
[2021-05-28] MEDS: MIDAZOLAM HCL 5 MG/ML-1ML VIAL ONE ×4 (14:16→14:32)
[2021-05-28] MEDS: diphenhdrAMINE HCL 50 MG/1 ML VL ONE ×2 (14:19→14:31)
[2021-05-28 15:30] VITALS: BP 108/56
== END | disposition home or self-care (01) ==
LOC: GI 12:18
PROVIDERS: ATTEND Internal Medicine Gastroenterology
DX: Z12.11 Encounter for screening for malignant neoplasm of colon (principal); D12.2 Benign neoplasm of ascending colon; D12.8 Benign neoplasm of rectum; K63.5 Polyp of colon; K63.89 Other specified diseases of intestine; K29.50 Unspecified chronic gastritis without bleeding; K21.00 Gastro-esophageal reflux disease with esophagitis, without bleeding; Q43.8 Other specified congenital malformations of intestine; K44.9 Diaphragmatic hernia without obstruction or gangrene; Z85.3 Personal history of malignant neoplasm of breast; Z82.49 Family history of ischemic heart disease and other diseases of the circulatory system; Z80.8 Family history of malignant neoplasm of other organs or systems; Z88.6 Allergy status to analgesic agent; Z98.890 Other specified postprocedural states; Z79.899 Other long term (current) drug therapy; Z88.0 Allergy status to penicillin; Z20.822 Contact with and (suspected) exposure to COVID-19
CPT/HCPCS: 36415; 43239; 45380; 45385; 80053; 85025; 85610; 85730; 88305; 88312; 88342; J1200; J2250; J3010; J7030; U0003; 99152; 99153

== ENCOUNTER → 2021-06-03 | Outpatient (CLI) | payer OTHER ==
[~2021-06-03] MED LIST changes: -LIDOCAINE VISCOUS 2% 15ML UD ONE; -MIDAZOLAM HCL 5 MG/ML-1ML VIAL ONE
[2021-06-03 07:50] LABS: Hematocrit 37.2 % (36.0-46.0); Mean Corpuscular Hemoglobin 30.8 pg (28.0-32.0); Mean Corpuscular Hgb Conc. 34.8 g/dL (32.0-36.0); Mean Corpuscular Volume 88.4 fL (80.0-100.0); Red Blood Cells 4.21 10^6/uL (4.0-5.20); Red Cell Distribution Width 14.4 % (11.8-14.3); White Blood Cell 21.2 10^3/uL (4.4-10.8)
[2021-06-03 07:54] LABS: Basophils % (manual) 0 (0.0-2.0); Blast Cells 0; Metamyelocytes % 0; Myelocytes % 0; Promyelocytes % 0; Reactive Lymphocytes 0
[2021-06-03 08:07] LABS: Urine Bacteria FEW /hpf (None Seen); Urine Blood Negative /uL (Negative); Urine Hyaline Cast FEW /lpf (0 - 2); Urine Specific Gravity 1.018 (1.001-1.035); Urine WBC 37 /hpf (0 - 5)
[2021-06-03 08:22] LABS: Albumin 3.2 g/dL (3.4-5.0); Calcium 10.2 mg/dL (8.5-10.1); Potassium 3.4 mmol/L (3.5-5.1)
[2021-06-03 08:27] LABS: BUN/Creatinine Ratio 18.5; Bilirubin, Total 0.3 mg/dL (0.2-1.0); Total Protein 6.2 g/dL (6.4-8.2)
[2021-06-03 09:03] LABS: INR 0.97 (0.9-1.15); Partial Thromboplastin Time 24.8 sec (23.6-33.0)
[2021-06-03 10:32] LABS: Band Neutrophils % (manual) 1; Eosinophils % (manual) 1 (0-7); Lymphocytes % (manual) 57 (10.0-50.0); Monocytes % (manual) 6 (0-12)
== END | disposition home or self-care (01) ==
LOC: LAB 07:23
PROVIDERS: ATTEND Nurse Practitioner Family
DX: N39.0 Urinary tract infection, site not specified (principal)
CPT/HCPCS: 36415; 80053; 81001; 85007; 85027; 85610; 85730; 87086

== ENCOUNTER → 2021-07-07 | Outpatient (CLI) | payer OTHER ==
[2021-07-07 14:52] LABS: Hematocrit 39.1 % (36.0-46.0); Hemoglobin 12.8 g/dL (12.2-16.2); Mean Corpuscular Hemoglobin 29.5 pg (28.0-32.0); Mean Corpuscular Hgb Conc. 32.6 g/dL (32.0-36.0); Mean Corpuscular Volume 90.5 fL (80.0-100.0); Red Blood Cells 4.32 10^6/uL (4.0-5.20); Red Cell Distribution Width 14.4 % (11.8-14.3); White Blood Cell 29.2 10^3/uL (4.4-10.8)
[2021-07-07 15:04] LABS: Basophils % (manual) 0 (0.0-2.0); Blast Cells 0; Eosinophils % (manual) 0 (0-7); Metamyelocytes % 0; Myelocytes % 0; Promyelocytes % 0; Reactive Lymphocytes 0
[2021-07-07 15:59] LABS: Albumin 3.1 g/dL (3.4-5.0); Calcium 10.2 mg/dL (8.5-10.1)
[2021-07-07 16:02] LABS: BUN/Creatinine Ratio 21.9; Bilirubin, Total 0.2 mg/dL (0.2-1.0); Total Protein 6.4 g/dL (6.4-8.2)
[2021-07-07 16:05] LABS: Band Neutrophils % (manual) 1; Lymphocytes % (manual) 64 (10.0-50.0); Monocytes % (manual) 6 (0-12)
== END | disposition home or self-care (01) ==
LOC: LAB 14:36
PROVIDERS: ATTEND Internal Medicine
DX: C91.10 Chronic lymphocytic leukemia of B-cell type not having achieved remission (principal)
CPT/HCPCS: 36415; 80053; 82306; 83615; 85007; 85027

== ENCOUNTER → 2021-11-09 | Outpatient (CLI) | payer OTHER ==
[2021-11-09 09:39] LABS: Hematocrit 38.6 % (36.0-46.0); Hemoglobin 12.6 g/dL (12.2-16.2); Mean Corpuscular Hemoglobin 29.4 pg (28.0-32.0); Mean Corpuscular Hgb Conc. 32.6 g/dL (32.0-36.0); Mean Corpuscular Volume 90.3 fL (80.0-100.0); Red Blood Cells 4.28 10^6/uL (4.0-5.20); Red Cell Distribution Width 13.9 % (11.8-14.3); White Blood Cell 21.6 10^3/uL (4.4-10.8)
[2021-11-09 09:45] LABS: Band Neutrophils % (manual) 0; Basophils % (manual) 0 (0.0-2.0); Blast Cells 0; Eosinophils % (manual) 0 (0-7); Metamyelocytes % 0; Myelocytes % 0; Promyelocytes % 0
[2021-11-09 10:19] LABS: Albumin 3.2 g/dL (3.4-5.0); Bilirubin, Total 0.7 mg/dL (0.2-1.0); Calcium 10.3 mg/dL (8.5-10.1); Total Protein 6.3 g/dL (6.4-8.2)
[2021-11-09 10:34] LABS: Potassium 2.9 mmol/L (3.5-5.1)
[2021-11-09 12:04] LABS: Lymphocytes % (manual) 75 (10.0-50.0); Monocytes % (manual) 1 (0-12); Reactive Lymphocytes 2
== END | disposition home or self-care (01) ==
LOC: LAB 09:27
PROVIDERS: ATTEND Internal Medicine
DX: C91.10 Chronic lymphocytic leukemia of B-cell type not having achieved remission (principal)
CPT/HCPCS: 36415; 80053; 83615; 85007; 85027

== ENCOUNTER → 2021-11-22 | Outpatient (CLI) | payer OTHER ==
[2021-11-22 14:14] LABS: Hematocrit 37.1 % (36.0-46.0); Hemoglobin 11.8 g/dL (12.2-16.2); Mean Corpuscular Hemoglobin 28.5 pg (28.0-32.0); Mean Corpuscular Hgb Conc. 31.8 g/dL (32.0-36.0); Mean Corpuscular Volume 89.5 fL (80.0-100.0); Red Blood Cells 4.14 10^6/uL (4.0-5.20); Red Cell Distribution Width 13.9 % (11.8-14.3)
[2021-11-22 14:29] LABS: Band Neutrophils % (manual) 0; Basophils % (manual) 0 (0.0-2.0); Blast Cells 0; Metamyelocytes % 0; Myelocytes % 0; Promyelocytes % 0; Reactive Lymphocytes 0
[2021-11-22 14:53] LABS: Albumin 3.2 g/dL (3.4-5.0); BUN/Creatinine Ratio 31.4; Calcium 9.7 mg/dL (8.5-10.1); Phosphorus 2.2 mg/dL (2.5-4.90); Urine Bacteria NONE SEEN /hpf (None Seen); Urine Blood Negative /uL (Negative); Urine Specific Gravity 1.019 (1.001-1.035); Urine WBC 16 /hpf (0 - 5)
[2021-11-22 15:33] LABS: Potassium 2.8 mmol/L (3.5-5.1); Uric Acid 6.2 mg/dL (2.6-6.0)
[2021-11-22 15:43] LABS: Eosinophils % (manual) 1 (0-7); Lymphocytes % (manual) 62 (10.0-50.0); Monocytes % (manual) 6 (0-12)
== END | disposition home or self-care (01) ==
LOC: LAB 13:55
PROVIDERS: ATTEND Internal Medicine
DX: R80.9 Proteinuria, unspecified (principal)
CPT/HCPCS: 36415; 80069; 81001; 82570; 83970; 84156; 84550; 85007; 85027

== ENCOUNTER → 2022-05-09 | Outpatient (CLI) | payer OTHER ==
[2022-05-09 12:10] LABS: Hematocrit 33.7 % (36.0-46.0); Mean Corpuscular Hemoglobin 29.1 pg (28.0-32.0); Mean Corpuscular Hgb Conc. 32.5 g/dL (32.0-36.0); Mean Corpuscular Volume 89.6 fL (80.0-100.0); Red Blood Cells 3.76 10^6/uL (4.0-5.20); Red Cell Distribution Width 15.2 % (11.8-14.3); White Blood Cell 13.4 10^3/uL (4.4-10.8)
[2022-05-09 12:15] LABS: Basophils % (manual) 0 (0.0-2.0); Blast Cells 0; Eosinophils % (manual) 0 (0-7); Metamyelocytes % 0; Myelocytes % 0; Promyelocytes % 0; Reactive Lymphocytes 0
[2022-05-09 12:32] LABS: Band Neutrophils % (manual) 24; Lymphocytes % (manual) 70 (10.0-50.0); Monocytes % (manual) 6 (0-12)
[2022-05-09 12:38] LABS: Albumin 3.5 g/dL (3.4-5.0); Potassium 4.1 mmol/L (3.5-5.1)
[2022-05-09 12:46] LABS: BUN/Creatinine Ratio 32.5; Bilirubin, Total 0.3 mg/dL (0.2-1.0); Calcium 9.6 mg/dL (8.5-10.1); Total Protein 6.5 g/dL (6.4-8.2)
== END | disposition home or self-care (01) ==
LOC: LAB 11:47
PROVIDERS: ATTEND Nurse Practitioner Family
DX: Z00.00 Encounter for general adult medical examination without abnormal findings (principal); I12.9 Hypertensive chronic kidney disease with stage 1 through stage 4 chronic kidney disease, or unspecified chronic kidney disease; N18.30 Chronic kidney disease, stage 3 unspecified; E87.6 Hypokalemia; C91.10 Chronic lymphocytic leukemia of B-cell type not having achieved remission; Z88.0 Allergy status to penicillin; Z88.8 Allergy status to other drugs, medicaments and biological substances
CPT/HCPCS: 36415; 80053; 80061; 83615; 85007; 85027; 86300

== ENCOUNTER → 2022-08-16 | Outpatient (CLI) | payer OTHER ==
[~2022-08-16] MED LIST changes: -ALEN70TA2 PO; +ALEN70TA21 PO
[2022-08-16 11:23] LABS: Hematocrit 39.3 % (36.0-46.0); Hemoglobin 12.9 g/dL (12.2-16.2); Mean Corpuscular Hemoglobin 29.1 pg (28.0-32.0); Mean Corpuscular Hgb Conc. 32.8 g/dL (32.0-36.0); Mean Corpuscular Volume 88.8 fL (80.0-100.0); Red Blood Cells 4.43 10^6/uL (4.0-5.20); Red Cell Distribution Width 15.3 % (11.8-14.3); White Blood Cell 14.8 10^3/uL (4.4-10.8)
[2022-08-16 11:26] LABS: Urine Bacteria FEW /hpf (None Seen); Urine Blood TRACE /uL (Negative); Urine Mucus FEW (None Seen); Urine Specific Gravity 1.014 (1.001-1.035); Urine WBC 9 /hpf (0 - 5); Urine WBC Clumps PRESENT /hpf (None Seen)
[2022-08-16 11:30] LABS: Band Neutrophils % (manual) 0; Basophils % (manual) 0 (0.0-2.0); Blast Cells 0; Metamyelocytes % 0; Myelocytes % 0; Promyelocytes % 0
[2022-08-16 11:47] LABS: Eosinophils % (manual) 1 (0-7); Lymphocytes % (manual) 57 (10.0-50.0); Monocytes % (manual) 5 (0-12); Reactive Lymphocytes 12
[2022-08-16 11:50] LABS: Albumin 3.5 g/dL (3.4-5.0); Calcium 9.6 mg/dL (8.5-10.1); Potassium 3.8 mmol/L (3.5-5.1)
[2022-08-16 11:59] LABS: BUN/Creatinine Ratio 23.7 (10.0-20.0); Phosphorus 2.4 mg/dL (2.5-4.90); Uric Acid 4.7 mg/dL (2.6-6.0)
[2022-08-16 12:14] LABS: Protein, Urine 18.9 mg/dL (0.0-11.9)
== END | disposition home or self-care (01) ==
LOC: LAB 11:02
PROVIDERS: ATTEND Internal Medicine
DX: E11.22 Type 2 diabetes mellitus with diabetic chronic kidney disease (principal); N18.30 Chronic kidney disease, stage 3 unspecified; R80.9 Proteinuria, unspecified; E55.9 Vitamin D deficiency, unspecified; E21.3 Hyperparathyroidism, unspecified; N39.0 Urinary tract infection, site not specified; M10.9 Gout, unspecified; D63.1 Anemia in chronic kidney disease
CPT/HCPCS: 36415; 80069; 81001; 82306; 82570; 83970; 84156; 84550; 85007; 85027

== ENCOUNTER → 2022-08-22 | Outpatient (CLI) | payer OTHER ==
[2022-08-22 15:47] LABS: Urine Bacteria NONE SEEN /hpf (None Seen); Urine Blood Negative /uL (Negative); Urine Hyaline Cast FEW /lpf (0 - 2); Urine Mucus FEW (None Seen); Urine Specific Gravity 1.012 (1.001-1.035); Urine WBC 12 /hpf (0 - 5)
== END | disposition home or self-care (01) ==
LOC: LAB 15:27
PROVIDERS: ATTEND Internal Medicine
DX: N39.0 Urinary tract infection, site not specified (principal)
CPT/HCPCS: 81001; 87086

== ENCOUNTER → 2022-11-09 | Outpatient (CLI) | payer OTHER ==
[2022-11-09 15:26] LABS: Hemoglobin 12.5 g/dL (12.2-16.2); Mean Corpuscular Hemoglobin 29.9 pg (28.0-32.0); Mean Corpuscular Hgb Conc. 32.9 g/dL (32.0-36.0); Mean Corpuscular Volume 90.9 fL (80.0-100.0); Red Blood Cells 4.18 10^6/uL (4.0-5.20); Red Cell Distribution Width 14.3 % (11.8-14.3); White Blood Cell 14.9 10^3/uL (4.4-10.8)
[2022-11-09 15:30] LABS: Band Neutrophils % (manual) 0; Basophils % (manual) 0 (0.0-2.0); Blast Cells 0; Eosinophils % (manual) 0 (0-7); Metamyelocytes % 0; Myelocytes % 0; Promyelocytes % 0; Reactive Lymphocytes 0
[2022-11-09 15:59] LABS: Alanine Aminotransferase 31 U/L (7-40); Albumin 4.1 g/dL (3.2-4.8); Alkaline Phosphatase 65 U/L (46-116); Aspartate Aminotransferase 26 U/L (13-40); BUN/Creatinine Ratio 21.5 (10.0-20.0); Bilirubin, Total 0.3 mg/dL (0.2-1.0); Blood Urea Nitrogen 23 mg/dL (9-23); Calcium 10.2 mg/dL (8.5-10.1); Chloride 108 mmol/L (98-107); Glucose 105 mg/dL (74-106); Potassium 3.8 mmol/L (3.5-5.1); Sodium 140 mmol/L (136-145); Total Protein 6.3 g/dL (5.7-8.2)
[2022-11-09 16:21] LABS: Anisocytosis Slight; Lymphocytes % (manual) 63 (10.0-50.0); Monocytes % (manual) 3 (0-12); Platelet Estimate Adequate
== END | disposition home or self-care (01) ==
LOC: LAB 15:13
PROVIDERS: ATTEND Physician Assistant
DX: C91.10 Chronic lymphocytic leukemia of B-cell type not having achieved remission (principal)
CPT/HCPCS: 36415; 80053; 83615; 85007; 85027; 86300

== ENCOUNTER → 2022-11-30 | Day surgery (SDC) | payer OTHER ==
[2022-11-28 09:36] LABS: Urine Bacteria NONE SEEN /hpf (None Seen); Urine Blood Negative /uL (Negative); Urine Clarity Clear (Clear); Urine Color Yellow (Yellow); Urine Protein, UAD Negative (Negative); Urine Specific Gravity 1.016 (1.001-1.035); Urine Urobilinogen Normal (Negative); Urine WBC 7 /hpf (0 - 5); Urine pH 6.5 (5.0-8.0)
[2022-11-28 09:40] LABS: INR 1.02 (0.9-1.15); Partial Thromboplastin Time 26.8 SEC (24.5-34.5); Prothrombin Time 10.7 sec (9.3-11.8)
[2022-11-28 09:43] LABS: Hematocrit 38.2 % (36.0-46.0); Hemoglobin 12.7 g/dL (12.2-16.2); Mean Corpuscular Hemoglobin 30.2 pg (28.0-32.0); Mean Corpuscular Hgb Conc. 33.3 g/dL (32.0-36.0); Mean Corpuscular Volume 90.5 fL (80.0-100.0); Red Blood Cells 4.22 10^6/uL (4.0-5.20); Red Cell Distribution Width 14.4 % (11.8-14.3); White Blood Cell 14.1 10^3/uL (4.4-10.8)
[2022-11-28 09:48] LABS: Basophils % (manual) 0 (0.0-2.0); Blast Cells 0; Metamyelocytes % 0; Myelocytes % 0; Promyelocytes % 0; Reactive Lymphocytes 0
[2022-11-28 10:26] LABS: Band Neutrophils % (manual) 1; Eosinophils % (manual) 1 (0-7); Lymphocytes % (manual) 69 (10.0-50.0); Monocytes % (manual) 5 (0-12)
[2022-11-28 10:27] LABS: Platelet Estimate Adequate
[2022-11-28 11:15] LABS: Alanine Aminotransferase 30 U/L (7-40); Alkaline Phosphatase 58 U/L (46-116); Calcium 10.4 mg/dL (8.5-10.1); Carbon Dioxide 27 mmol/L (20-30)
[2022-11-28 11:18] LABS: BUN/Creatinine Ratio 22.2 (10.0-20.0); Blood Urea Nitrogen 22 mg/dL (9-23); Glucose 91 mg/dL (74-106)
[2022-11-28 11:19] LABS: Albumin 4.2 g/dL (3.2-4.8); Aspartate Aminotransferase 25 U/L (13-40)
[2022-11-28 11:20] LABS: Bilirubin, Total 0.5 mg/dL (0.2-1.0); Total Protein 6.4 g/dL (5.7-8.2)
[2022-11-28 12:00] LABS: Anion Gap 6 (5-15); Chloride 108 mmol/L (98-107); Potassium 4.1 mmol/L (3.5-5.1); Sodium 141 mmol/L (136-145)
[~2022-11-30] VITALS: Ht 162.6 cm; Wt 53.5 kg
[~2022-11-30] MED LIST changes: +HYDROmorphone HCL 2 MG/ML VL/or syr IV PRN; +LIDOCAINE 2% (LOCAL ANESTH.) PF 5ml SDV ONE; +MIDAZOLAM HCL 2MG/2ML 2ml VIAL (1mg/ml) ONE; +ONDANSETRON HCL 4 MG/2 ML VIAL IV PRN; +PROPOFOL 10 MG/ML 20 ML IV ONE; +fentaNYL CITRATE 100 MCG/2 ML VL ONE
[2022-11-30 13:27] VITALS: RESP 20; TEMP 97.7; O2SAT 100
[2022-11-30 14:07] VITALS: BP 128/69; PULSE 74; RESP 16; O2SAT 98
== END | disposition home or self-care (01) ==
LOC: GI 11:35
PROVIDERS: ATTEND Internal Medicine Gastroenterology
DX: Z09 Encounter for follow-up examination after completed treatment for conditions other than malignant neoplasm (principal); D12.2 Benign neoplasm of ascending colon; K64.8 Other hemorrhoids; Q43.8 Other specified congenital malformations of intestine; K63.89 Other specified diseases of intestine; Z86.010 Personal history of colon polyps
CPT/HCPCS: 36415; 45385; 80053; 81001; 85007; 85027; 85610; 85730; J2001; J2250; J2704; J3010; J7030

== ENCOUNTER → 2023-02-13 | Outpatient (CLI) | payer OTHER ==
[~2023-02-13] MED LIST changes: -HYDROmorphone HCL 2 MG/ML VL/or syr IV PRN; -LIDOCAINE 2% (LOCAL ANESTH.) PF 5ml SDV ONE; -MIDAZOLAM HCL 2MG/2ML 2ml VIAL (1mg/ml) ONE; -ONDANSETRON HCL 4 MG/2 ML VIAL IV PRN; -PROPOFOL 10 MG/ML 20 ML IV ONE; -fentaNYL CITRATE 100 MCG/2 ML VL ONE
[2023-02-13 12:18] LABS: Hematocrit 41.2 % (36.0-46.0); Hemoglobin 13.5 g/dL (12.2-16.2); Mean Corpuscular Hemoglobin 29.9 pg (28.0-32.0); Mean Corpuscular Hgb Conc. 32.7 g/dL (32.0-36.0); Mean Corpuscular Volume 91.3 fL (80.0-100.0); Red Blood Cells 4.51 10^6/uL (4.0-5.20); Red Cell Distribution Width 14.3 % (11.8-14.3); White Blood Cell 14.7 10^3/uL (4.4-10.8)
[2023-02-13 12:25] LABS: Basophils % (manual) 0 (0.0-2.0); Blast Cells 0; Eosinophils % (manual) 0 (0-7); Metamyelocytes % 0; Myelocytes % 0; Promyelocytes % 0; Reactive Lymphocytes 0
[2023-02-13 12:40] LABS: Potassium 4.2 mmol/L (3.5-5.1); Urine Bacteria NONE SEEN /hpf (None Seen); Urine Blood Negative /uL (Negative); Urine Clarity HAZY (Clear); Urine Color Yellow (Yellow); Urine Hyaline Cast FEW /lpf (0 - 2); Urine Protein, UAD TRACE (Negative); Urine Specific Gravity 1.017 (1.001-1.035); Urine Urobilinogen Normal (Negative); Urine WBC 8 /hpf (0 - 5)
[2023-02-13 12:42] LABS: Calcium 11.2 mg/dL (8.5-10.1)
[2023-02-13 12:47] LABS: BUN/Creatinine Ratio 18.9 (10.0-20.0)
[2023-02-13 12:48] LABS: Albumin 4.4 g/dL (3.2-4.8)
[2023-02-13 12:49] LABS: Phosphorus 2.9 mg/dL (2.4-5.1); Uric Acid 5.3 mg/dL (3.1-7.8)
[2023-02-13 13:19] LABS: Protein, Urine 14.2 mg/dL (0.0-11.9)
[2023-02-13 13:22] LABS: Creatinine, Urine 98.53 mg/dL (30.0-125.0); Urine Protein/Creatinine Ratio 0.14
[2023-02-13 13:29] LABS: Band Neutrophils % (manual) 1; Lymphocytes % (manual) 74 (10.0-50.0); Monocytes % (manual) 4 (0-12); Platelet Estimate Adequate
== END | disposition home or self-care (01) ==
LOC: LAB 11:54
PROVIDERS: ATTEND Internal Medicine
DX: N18.31 Chronic kidney disease, stage 3a (principal); D63.1 Anemia in chronic kidney disease; E21.3 Hyperparathyroidism, unspecified; E78.5 Hyperlipidemia, unspecified; M10.9 Gout, unspecified; R80.9 Proteinuria, unspecified; R82.90 Unspecified abnormal findings in urine
CPT/HCPCS: 36415; 80069; 81001; 82306; 82570; 83970; 84156; 84550; 85007; 85027

== ENCOUNTER → 2023-05-09 | Outpatient (CLI) | payer OTHER ==
[2023-05-09 09:13] LABS: Hematocrit 38.8 % (36.0-46.0); Hemoglobin 12.9 g/dL (12.2-16.2); Mean Corpuscular Hemoglobin 30.5 pg (28.0-32.0); Mean Corpuscular Hgb Conc. 33.2 g/dL (32.0-36.0); Mean Corpuscular Volume 91.6 fL (80.0-100.0); Red Blood Cells 4.24 10^6/uL (4.0-5.20); Red Cell Distribution Width 14.3 % (11.8-14.3); White Blood Cell 14.7 10^3/uL (4.4-10.8)
[2023-05-09 09:16] LABS: Basophils % (manual) 0 (0.0-2.0); Blast Cells 0; Eosinophils % (manual) 0 (0-7); Metamyelocytes % 0; Myelocytes % 0; Promyelocytes % 0; Reactive Lymphocytes 0
[2023-05-09 09:32] LABS: Alanine Aminotransferase 33 U/L (7-40); Albumin 4.1 g/dL (3.2-4.8); Alkaline Phosphatase 57 U/L (46-116); Anion Gap 5 (5-15); Aspartate Aminotransferase 35 U/L (13-40); BUN/Creatinine Ratio 18.4 (10.0-20.0); Bilirubin, Total 0.5 mg/dL (0.2-1.0); Blood Urea Nitrogen 18 mg/dL (9-23); Calcium 10.5 mg/dL (8.5-10.1); Carbon Dioxide 27 mmol/L (20-30); Chloride 109 mmol/L (98-107); Cholesterol 242 mg/dL (< 200); Glucose 82 mg/dL (74-106); HDL Cholesterol 78 mg/dL (40-59); LDL Cholesterol 154 mg/dL (< 100); Potassium 3.9 mmol/L (3.5-5.1); Sodium 141 mmol/L (136-145); Total Protein 6.4 g/dL (5.7-8.2); Triglycerides 84 mg/dL (< 150)
[2023-05-09 09:35] LABS: Thyroid Stimulating Hormone 5.71 uIU/mL (0.55-4.78)
[2023-05-09 11:24] LABS: Band Neutrophils % (manual) 1; Lymphocytes % (manual) 71 (10.0-50.0); Monocytes % (manual) 2 (0-12)
[2023-05-09 11:25] LABS: Platelet Estimate Adequate
== END | disposition home or self-care (01) ==
LOC: LAB 08:39
PROVIDERS: ATTEND Nurse Practitioner Family
DX: C91.10 Chronic lymphocytic leukemia of B-cell type not having achieved remission (principal); M81.0 Age-related osteoporosis without current pathological fracture; E78.5 Hyperlipidemia, unspecified
CPT/HCPCS: 36415; 80053; 80061; 82306; 83615; 84439; 84443; 85007; 85027; 86300

== ENCOUNTER → 2023-06-01 | Outpatient (CLI) | payer OTHER ==
[~2023-06-01] VITALS: Ht 162.6 cm; Wt 53.5 kg
[2023-06-01] MEDS: ADENOSINE 45 MG in GIVE UN-DILUTED 0 ML IV ONE (12:04)
== END | disposition home or self-care (01) ==
LOC: XYW 10:55
PROVIDERS: ATTEND Student in an Organized Health Care Education/Training Program
DX: Z01.810 Encounter for preprocedural cardiovascular examination (principal); E78.5 Hyperlipidemia, unspecified; E87.6 Hypokalemia
CPT/HCPCS: 78452; 93017; A9500; J0153

== ENCOUNTER 2023-07-29 12:22 | Emergency (ER) | payer MEDICARE, OTHER ==
[~2023-07-29] VITALS: Ht 162.6 cm; Wt 54.0 kg
[2023-07-29 12:23] VITALS: PULSE 68; RESP 14; TEMP 97.4; O2SAT 97
[2023-07-29] MEDS: SODIUM CHLORIDE 0.9% 1,000 ML IV ONE (15:22)
[2023-07-29] MEDS: METOCLOPRAMIDE HCL 5MG/ml INJ 2ml VIAL IV ONE (15:30)
[2023-07-29] MEDS: HYDROmorphone HCL 2 MG/ML VL/or syr IV ONE (15:30)
[2023-07-29 16:20] LABS: Chloride 109 mmol/L (98-107); Hemoglobin 11.8 g/dL (12.2-16.2); Mean Corpuscular Hemoglobin 29.9 pg (28.0-32.0); Mean Corpuscular Hgb Conc. 32.8 g/dL (32.0-36.0); Mean Corpuscular Volume 91.1 fL (80.0-100.0); Potassium 3.7 mmol/L (3.5-5.1); Red Blood Cells 3.95 10^6/uL (4.0-5.20); Red Cell Distribution Width 14.2 % (11.8-14.3); Sodium 140 mmol/L (136-145); White Blood Cell 17.8 10^3/uL (4.4-10.8)
[2023-07-29 16:21] LABS: Calcium 9.9 mg/dL (8.7-10.4)
[2023-07-29 16:25] LABS: Glucose 84 mg/dL (74-106)
[2023-07-29 16:26] LABS: BUN/Creatinine Ratio 13.6 (10.0-20.0); Basophils % (manual) 0 (0.0-2.0); Blast Cells 0; Blood Urea Nitrogen 12 mg/dL (9-23); Eosinophils % (manual) 0 (0-7); Magnesium 1.9 mg/dL (1.6-2.6); Metamyelocytes % 0; Myelocytes % 0; Promyelocytes % 0; Reactive Lymphocytes 0
[2023-07-29 16:42] LABS: Anion Gap 4 (5-15); Carbon Dioxide 27 mmol/L (20-30)
[2023-07-29 16:45] LABS: Urine Bacteria None Seen /hpf (None Seen)
[2023-07-29 16:52] LABS: Band Neutrophils % (manual) 1; Lymphocytes % (manual) 65 (10.0-50.0); Monocytes % (manual) 3 (0-12)
[2023-07-29 16:53] LABS: Platelet Estimate Adequate
[2023-07-29 16:58] LABS: Urine Blood Negative /uL (Negative); Urine Clarity Clear (Clear); Urine Color Light-Yellow (Yellow); Urine Protein, UAD Negative (Negative); Urine Urobilinogen Normal (Negative); Urine WBC 1 /hpf (0 - 5)
[2023-07-29] MEDS ORDERED: DEX4T PO (17:59)
[2023-07-29] MEDS ORDERED: CYCL-839 PO (17:59)
[2023-07-29 18:00] VITALS: BP 128/58; PULSE 68; RESP 13; O2SAT 95
[2023-07-29] MEDS: DexAMETHasone SOD PHOS 10MG/1ML VIAL INJ IV ONE (18:01)
== END 2023-07-29 20:45 | disposition home or self-care (01) ==
LOC: ER 12:22 → EDBD 12:22 → EDUNIT# 12:22 → ER 20:45
DX: M25.552 Pain in left hip (principal); M47.26 Other spondylosis with radiculopathy, lumbar region; Z90.49 Acquired absence of other specified parts of digestive tract; Z90.710 Acquired absence of both cervix and uterus; Z90.89 Acquired absence of other organs; Z79.899 Other long term (current) drug therapy; Z88.0 Allergy status to penicillin; Z88.6 Allergy status to analgesic agent; W18.39XA Other fall on same level, initial encounter; Y93.89 Activity, other specified; Y92.89 Other specified places as the place of occurrence of the external cause; Y99.8 Other external cause status
CPT/HCPCS: 36415; 72131; 73700; 80048; 81001; 83735; 85007; 85027; 96361; 96374; 96375; 99285; J1100; J1170; J2765; J7030

== ENCOUNTER 2023-08-04 10:20 | Inpatient (IN) | payer MEDICARE, OTHER ==
[~2023-08-04] VITALS: Ht 162.6 cm; Wt 65.2 kg
[~2023-08-04 10:20] MED LIST changes: +CYCL-839 PO; +DEX4T PO
[2023-08-04 10:54] LABS: Hematocrit 43.1 % (36.0-46.0); Hemoglobin 14.1 g/dL (12.2-16.2); Mean Corpuscular Hemoglobin 29.8 pg (28.0-32.0); Mean Corpuscular Hgb Conc. 32.9 g/dL (32.0-36.0); Mean Corpuscular Volume 90.8 fL (80.0-100.0); Red Blood Cells 4.74 10^6/uL (4.0-5.20); Red Cell Distribution Width 14.5 % (11.8-14.3)
[2023-08-04] MEDS: MORPHINE SULFATE 4 MG/ML SYR/VIAL IV ONE (11:00)
[2023-08-04 11:05] VITALS: PULSE 70; RESP 16
[2023-08-04 11:09] LABS: White Blood Cell 31.3 10^3/uL (4.4-10.8)
[2023-08-04 11:10] LABS: Band Neutrophils % (manual) 0; Basophils % (manual) 0 (0.0-2.0); Blast Cells 0; Eosinophils % (manual) 0 (0-7); Metamyelocytes % 0; Myelocytes % 0; Promyelocytes % 0
[2023-08-04 11:12] LABS: Alanine Aminotransferase 18 U/L (7-40); Albumin 4.2 g/dL (3.2-4.8); Alkaline Phosphatase 242 U/L (46-116); Anion Gap 4 (5-15); Aspartate Aminotransferase 20 U/L (13-40); BUN/Creatinine Ratio 27.2 (10.0-20.0); Bilirubin, Total 0.5 mg/dL (0.2-1.0); Blood Urea Nitrogen 22 mg/dL (9-23); Calcium 10.4 mg/dL (8.5-10.1); Carbon Dioxide 27 mmol/L (20-30); Chloride 107 mmol/L (98-107); Creatine Kinase IFCC 29 U/L (34-145); Glucose 102 mg/dL (74-106); Potassium 4.1 mmol/L (3.5-5.1); Sodium 138 mmol/L (136-145); Total Protein 6.6 g/dL (5.7-8.2)
[2023-08-04 12:09] LABS: Lymphocytes % (manual) 56 (10.0-50.0); Monocytes % (manual) 2 (0-12); Platelet Estimate Adequate; Reactive Lymphocytes 3
[2023-08-04] MEDS: SODIUM CHLORIDE 0.9% 1,650 ML IV ONE (12:10)
[2023-08-04] MEDS: VANCOMYCIN 1GM/200ML 200 ML IV ONE (12:18)
[2023-08-04] MEDS: KETOROLAC TROMETH 30 MG/ML 1ML VIAL IV ONE (12:33)
[2023-08-04] MEDS: CIPROFLOXACIN 400MG/200ML 200 ML IV ONE (13:32)
[2023-08-04] MEDS ORDERED: ACETAMINOPHEN 325 MG TAB PO PRN ×2 (16:00)
[2023-08-04] MEDS ORDERED: ONDANSETRON HCL 4 MG/2 ML VIAL IV PRN (16:00)
[2023-08-04] MEDS: AZTREONAM 1GM INJ 1 GM in D5W 5% 50 ML IV ONE (16:00)
[2023-08-04] MEDS: MORPHINE SULFATE INJ 2 MG/ml SYRG IV PRN (16:52)
[2023-08-04 17:41] VITALS: BP_SYST 115; BP_SYST 144; BP_DIAS 69; PULSE 79; PULSE 85; RESP 16; RESP 20; TEMP 96.7; TEMP 98; O2SAT 96; O2SAT 98
[2023-08-04] MEDS: SODIUM CHLORIDE 0.9% 1,000 ML IV SCH (17:50)
[2023-08-04] MEDS: HYDROcodone-ACET 5/325MG TAB PO PRN (19:26)
[2023-08-04 20:00] VITALS: BP 118/69; PULSE 74; RESP 16; TEMP 97; O2SAT 95
[2023-08-04] MEDS ORDERED: TRAM50TA2 PO (20:00)
[2023-08-04 20:13] LABS: Triglycerides 117 mg/dL (< 150)
[2023-08-04 20:14] LABS: LDL Cholesterol 110 mg/dL (< 100)
[2023-08-04 20:15] LABS: Cholesterol 192 mg/dL (< 200); HDL Cholesterol 57 mg/dL (40-59)
[2023-08-04 21:00] VITALS: BP 118/69; PULSE 74; RESP 16; TEMP 97; O2SAT 95
[2023-08-05] VITALS (8 sets, daily range): BP systolic 108–165; BP diastolic 64–75; PULSE 71–96; RESP 16–19; TEMP 96–98.6; O2SAT 95–99
[2023-08-05 01:22] LABS: Urine Bacteria None Seen /hpf (None Seen)
[2023-08-05 02:24] LABS: Urine Blood 1+ /uL (Negative); Urine Clarity Clear (Clear); Urine Color Light-Yellow (Yellow); Urine Protein, UAD Negative (Negative); Urine Specific Gravity 1.017 (1.001-1.035); Urine Urobilinogen Normal (Negative); Urine WBC 206 /hpf (0 - 5); Urine pH 5.5 (5.0-9.0)
[2023-08-05 06:30] LABS: Chloride 112 mmol/L (98-107); Potassium 3.9 mmol/L (3.5-5.1); Sodium 140 mmol/L (136-145)
[2023-08-05 06:31] LABS: Anion Gap 3 (5-15); Calcium 9.3 mg/dL (8.7-10.4); Carbon Dioxide 25 mmol/L (20-30)
[2023-08-05 06:36] LABS: BUN/Creatinine Ratio 29.7 (10.0-20.0); Blood Urea Nitrogen 22 mg/dL (9-23); Glucose 80 mg/dL (74-106)
[2023-08-05 06:44] LABS: Hematocrit 36.8 % (36.0-46.0); Hemoglobin 12.2 g/dL (12.2-16.2); Red Blood Cells 4.05 10^6/uL (4.0-5.20); Red Cell Distribution Width 14.6 % (11.8-14.3)
[2023-08-05 06:56] LABS: Band Neutrophils % (manual) 0; Basophils % (manual) 0 (0.0-2.0); Blast Cells 0; Metamyelocytes % 0; Myelocytes % 0; Promyelocytes % 0
[2023-08-05 08:17] LABS: Eosinophils % (manual) 1 (0-7); Lymphocytes % (manual) 60 (10.0-50.0); Monocytes % (manual) 4 (0-12); Platelet Estimate Adequate; Reactive Lymphocytes 1; Smudge Cells 8 /100 WBC
[2023-08-05] MEDS: LACTULOSE 20Gm/30ML SOLN PO ONE (09:06)
[2023-08-05] MEDS: HYDROcodone-ACET 5/325MG TAB PO ONE (09:06)
[2023-08-05] MEDS: ENOXAPARIN SOD 40 MG/0.4 ML SYRINGE SC SCH (09:06)
[2023-08-05] MEDS ORDERED: ENOXAPARIN SOD 30 MG/0.3 ML SYRINGE SC SCH (10:00)
[2023-08-05] MEDS: levoFLOXacin 500MG 100 ML IV ONE (10:47)
[2023-08-05] MEDS: traMADol HCL 50 MG TAB PO PRN (12:45)
[2023-08-05] MEDS: CYCLOBENZAPRINE HCL 10 MG TAB PO SCH (13:39)
[2023-08-05] MEDS: PRAVASTATIN SODIUM 20 MG TAB PO SCH (21:07)
[2023-08-06] VITALS (8 sets, daily range): BP systolic 107–142; BP diastolic 48–82; PULSE 65–85; RESP 16–20; TEMP 97.4–98.7; O2SAT 96–100
[2023-08-06] MEDS: levoFLOXacin 500MG 100 ML IV SCH (10:36)
[2023-08-06] MEDS: LACTULOSE 20Gm/30ML SOLN PO ONE (18:41)
[2023-08-07] VITALS (8 sets, daily range): BP systolic 14–138; BP diastolic 71–78; PULSE 77–99; RESP 16–20; TEMP 97.6–98.6; O2SAT 94–98
[2023-08-08 01:00] VITALS: BP 115/66; PULSE 81; RESP 18; TEMP 98; O2SAT 93
[2023-08-08 05:00] VITALS: BP_SYST 126; BP_SYST 140; BP_DIAS 66; BP_DIAS 69; PULSE 79; PULSE 92; RESP 18; RESP 20; TEMP 97.5; TEMP 98; O2SAT 97; O2SAT 98
[2023-08-08 09:00] VITALS: BP 129/70; PULSE 80; RESP 18; TEMP 98.5; O2SAT 94
[2023-08-08 13:00] VITALS: BP 109/66; PULSE 95; RESP 16; TEMP 98; O2SAT 95
[2023-08-08] MEDS: cefTRIAXone 1GM/50ML D5W 50 ML IV ONE (13:57)
[2023-08-08] MEDS: LACTULOSE 20Gm/30ML SOLN PO ONE (14:02)
[2023-08-08 14:33] LABS: Hematocrit 38.3 % (36.0-46.0); Hemoglobin 12.9 g/dL (12.2-16.2); Mean Corpuscular Hemoglobin 30.3 pg (28.0-32.0); Mean Corpuscular Hgb Conc. 33.7 g/dL (32.0-36.0); Mean Corpuscular Volume 89.9 fL (80.0-100.0); Red Blood Cells 4.25 10^6/uL (4.0-5.20); Red Cell Distribution Width 13.9 % (11.8-14.3); White Blood Cell 25.1 10^3/uL (4.4-10.8)
[2023-08-08 14:35] LABS: Band Neutrophils % (manual) 0; Basophils % (manual) 0 (0.0-2.0); Blast Cells 0; Metamyelocytes % 0; Myelocytes % 0; Promyelocytes % 0
[2023-08-08 14:40] LABS: Chloride 107 mmol/L (98-107); Potassium 4.1 mmol/L (3.5-5.1); Sodium 138 mmol/L (136-145)
[2023-08-08 14:41] LABS: Anion Gap 6 (5-15); Calcium 10.5 mg/dL (8.7-10.4); Carbon Dioxide 25 mmol/L (20-30)
[2023-08-08 14:46] LABS: BUN/Creatinine Ratio 26.9 (10.0-20.0); Blood Urea Nitrogen 21 mg/dL (9-23); Glucose 110 mg/dL (74-106)
[2023-08-08 14:57] LABS: Eosinophils % (manual) 1 (0-7); Lymphocytes % (manual) 55 (10.0-50.0); Monocytes % (manual) 5 (0-12); Platelet Estimate Adequate; Reactive Lymphocytes 15
[2023-08-08 17:00] VITALS: BP_SYST 103; BP_SYST 132; BP_DIAS 61; BP_DIAS 81; PULSE 88; PULSE 90; RESP 16; TEMP 97.8; TEMP 98.4; O2SAT 97
[2023-08-08] MEDS: POLYETHYLENE GLYCOL 17 GM PWDR PO ONE (18:00)
[2023-08-08] MEDS: BISACODYL 5 MG EC TAB PO ONE (18:00)
[2023-08-09] MEDS ORDERED: cefTRIAXone 1GM/50ML D5W 50 ML IV SCH (09:00)
[2023-08-09] MEDS ORDERED: POLYETHYLENE GLYCOL 17 GM PWDR PO SCH (10:00)
== END 2023-08-08 19:15 | DRG 551 ==
LOC: EDSEX 10:20 → ER 10:20 → EDBD 10:20 → OVERFLOW 16:01 → WEST WING 17:36
PROVIDERS: ADMIT Registered Nurse; ATTEND Internal Medicine
DX: S32.059A Unspecified fracture of fifth lumbar vertebra, initial encounter for closed fracture (principal); E43 Unspecified severe protein-calorie malnutrition; S32.19XA Other fracture of sacrum, initial encounter for closed fracture; N39.0 Urinary tract infection, site not specified; E03.9 Hypothyroidism, unspecified; E78.00 Pure hypercholesterolemia, unspecified; E86.0 Dehydration; Z85.3 Personal history of malignant neoplasm of breast; Z88.0 Allergy status to penicillin; Z87.442 Personal history of urinary calculi; Z88.6 Allergy status to analgesic agent; Z90.49 Acquired absence of other specified parts of digestive tract; Z90.710 Acquired absence of both cervix and uterus; Z85.6 Personal history of leukemia; Z68.24 Body mass index [BMI] 24.0-24.9, adult; W18.30XA Fall on same level, unspecified, initial encounter; Y93.89 Activity, other specified; Y92.89 Other specified places as the place of occurrence of the external cause; Y99.8 Other external cause status
CPT/HCPCS: 36415; 71045; 72131; 72148; 74018; 80048; 80053; 80061; 81001; 82306; 82550; 83605; 84443; 84484; 85007; 85027; 85048; 87040; 87086; 97163; 99291; G0378; J1885; J1956; J7060

== ENCOUNTER 2023-08-28 04:43 | Inpatient (IN) | payer MEDICARE, OTHER ==
[~2023-08-28] VITALS: Ht 162.6 cm; Wt 58.3 kg
[~2023-08-28 04:43] MED LIST changes: -FAMO20TA10 PO; -PANT40TA2 PO; +TRAM50TA2 PO
[2023-08-28] MEDS: MORPHINE SULFATE INJ 2 MG/ml SYRG IM ONE ×2 (08:21→11:52)
[2023-08-28 14:01] LABS: Hematocrit 38.1 % (36.0-46.0); Hemoglobin 12.5 g/dL (12.2-16.2); Mean Corpuscular Hemoglobin 29.9 pg (28.0-32.0); Mean Corpuscular Hgb Conc. 32.8 g/dL (32.0-36.0); Mean Corpuscular Volume 90.9 fL (80.0-100.0); Red Cell Distribution Width 14.3 % (11.8-14.3); White Blood Cell 26.7 10^3/uL (4.4-10.8)
[2023-08-28 14:07] LABS: Basophils % (manual) 0 (0.0-2.0); Blast Cells 0; Eosinophils % (manual) 0 (0-7); Metamyelocytes % 0; Myelocytes % 0; Promyelocytes % 0
[2023-08-28 14:13] LABS: Chloride 107 mmol/L (98-107); Potassium 4.1 mmol/L (3.5-5.1); Sodium 138 mmol/L (136-145)
[2023-08-28 14:14] LABS: Anion Gap 1 (5-15); Carbon Dioxide 30 mmol/L (20-30)
[2023-08-28 14:15] LABS: Calcium 10.2 mg/dL (8.5-10.1)
[2023-08-28 14:15] LABS: Urine Bacteria None Seen /hpf (None Seen)
[2023-08-28 14:19] LABS: Glucose 85 mg/dL (74-106)
[2023-08-28 14:20] LABS: BUN/Creatinine Ratio 20.9 (10.0-20.0); Blood Urea Nitrogen 14 mg/dL (9-23)
[2023-08-28 14:36] LABS: Band Neutrophils % (manual) 1; Lymphocytes % (manual) 49 (10.0-50.0); Monocytes % (manual) 5 (0-12); Reactive Lymphocytes 4
[2023-08-28 14:37] LABS: Platelet Estimate Adequate; RBC Morphology Normal
[2023-08-28 14:57] LABS: Urine Blood 1+ /uL (Negative); Urine Clarity Clear (Clear); Urine Color Light-Yellow (Yellow); Urine Protein, UAD Negative (Negative); Urine Urobilinogen Normal (Negative); Urine WBC 7 /hpf (0 - 5); Urine pH 6.5 (5.0-9.0)
[2023-08-28] MEDS ORDERED: ONDANSETRON HCL 4 MG/2 ML VIAL IV PRN (15:15)
[2023-08-28] MEDS ORDERED: ACETAMINOPHEN 325 MG TAB PO PRN (15:15)
[2023-08-28] MEDS ORDERED: LEV25T PO (15:18)
[2023-08-28] MEDS: MORPHINE SULFATE INJ 2 MG/ml SYRG IV ONE (15:43)
[2023-08-28] MEDS: SODIUM CHLORIDE 0.9% 1,000 ML IV ONE (15:46)
[2023-08-28 16:08] VITALS: O2SAT 96
[2023-08-28] MEDS: MORPHINE SULFATE INJ 2 MG/ml SYRG IV PRN (22:40)
[2023-08-28 22:46] VITALS: BP 107/69; PULSE 96; RESP 18; TEMP 97.9; O2SAT 96
[2023-08-28] MEDS: HYDROcodone-ACET 5/325MG TAB PO PRN (23:13)
[2023-08-28] MEDS: DOCUSATE SOD 100 MG CAP PO PRN (23:16)
[2023-08-29] VITALS (7 sets, daily range): BP systolic 106–119; BP diastolic 53–69; PULSE 67–111; RESP 16–20; TEMP 97.4–98.6; O2SAT 94–98
[2023-08-29 06:36] LABS: Hemoglobin 12.4 g/dL (12.2-16.2); Mean Corpuscular Hemoglobin 30.7 pg (28.0-32.0); Mean Corpuscular Hgb Conc. 33.3 g/dL (32.0-36.0); Red Blood Cells 4.03 10^6/uL (4.0-5.20); Red Cell Distribution Width 14.3 % (11.8-14.3); White Blood Cell 25.9 10^3/uL (4.4-10.8)
[2023-08-29 06:44] LABS: Alanine Aminotransferase 20 U/L (7-40); Albumin 3.6 g/dL (3.2-4.8); Alkaline Phosphatase 212 U/L (46-116); Anion Gap 6 (5-15); Aspartate Aminotransferase 16 U/L (13-40); BUN/Creatinine Ratio 32.4 (10.0-20.0); Blood Urea Nitrogen 22 mg/dL (9-23); Calcium 9.5 mg/dL (8.5-10.1); Carbon Dioxide 24 mmol/L (20-30); Chloride 107 mmol/L (98-107); Glucose 68 mg/dL (74-106); Sodium 137 mmol/L (136-145)
[2023-08-29 06:45] LABS: Bilirubin, Total 0.4 mg/dL (0.2-1.0); Total Protein 5.7 g/dL (5.7-8.2)
[2023-08-29 07:04] LABS: Band Neutrophils % (manual) 0; Basophils % (manual) 0 (0.0-2.0); Blast Cells 0; Eosinophils % (manual) 0 (0-7); Metamyelocytes % 0; Myelocytes % 0; Promyelocytes % 0
[2023-08-29] MEDS: LEVOTHYROXINE SODIUM 25 MCG TAB PO SCH (07:57)
[2023-08-29] MEDS: PRAVASTATIN SODIUM 20 MG TAB PO SCH (07:57)
[2023-08-29] MEDS: ENOXAPARIN SOD 40 MG/0.4 ML SYRINGE SC SCH (07:58)
[2023-08-29 08:17] LABS: Lymphocytes % (manual) 51 (10.0-50.0); Monocytes % (manual) 1 (0-12); Platelet Estimate Adequate; Reactive Lymphocytes 6
== END 2023-08-29 16:00 | DRG 536 ==
LOC: EDBD 04:43 → ER 04:43 → OVERFLOW 15:18 → EAST 22:02
PROVIDERS: ADMIT Internal Medicine; ATTEND Internal Medicine
DX: S32.592A Other specified fracture of left pubis, initial encounter for closed fracture (principal); M81.0 Age-related osteoporosis without current pathological fracture; E78.5 Hyperlipidemia, unspecified; E03.9 Hypothyroidism, unspecified; D72.829 Elevated white blood cell count, unspecified; W01.0XXA Fall on same level from slipping, tripping and stumbling without subsequent striking against object, initial encounter; Y93.01 Activity, walking, marching and hiking; Z96.641 Presence of right artificial hip joint; Z88.6 Allergy status to analgesic agent; Z88.0 Allergy status to penicillin; Z87.442 Personal history of urinary calculi; Z90.710 Acquired absence of both cervix and uterus; Z90.49 Acquired absence of other specified parts of digestive tract; Z85.3 Personal history of malignant neoplasm of breast; Y92.89 Other specified places as the place of occurrence of the external cause; Y99.8 Other external cause status; Z82.49 Family history of ischemic heart disease and other diseases of the circulatory system; Z80.0 Family history of malignant neoplasm of digestive organs
CPT/HCPCS: 36415; 72170; 72192; 80048; 80053; 81001; 85007; 85027; 96372; 96374; G0378

== ENCOUNTER → 2023-10-31 | Outpatient (CLI) | payer OTHER ==
[~2023-10-31] MED LIST changes: +LEV25T PO
[2023-10-31 11:31] LABS: Hematocrit 36.4 % (36.0-46.0); Hemoglobin 12.1 g/dL (12.2-16.2); Mean Corpuscular Hemoglobin 31.1 pg (28.0-32.0); Mean Corpuscular Hgb Conc. 33.3 g/dL (32.0-36.0); Mean Corpuscular Volume 93.1 fL (80.0-100.0); Platelet Count (auto) 323 10^3/uL (140-450); Red Cell Distribution Width 15.3 % (11.8-14.3); White Blood Cell 23.5 10^3/uL (4.4-10.8)
[2023-10-31 11:33] LABS: Band Neutrophils % (manual) 0; Basophils % (manual) 0 (0.0-2.0); Blast Cells 0; Eosinophils % (manual) 0 (0-7); Metamyelocytes % 0; Myelocytes % 0; Promyelocytes % 0
[2023-10-31 12:03] LABS: Protein, Urine 25.9 mg/dL (0.0-11.9)
[2023-10-31 12:04] LABS: Creatinine, Urine 75.82 mg/dL (30.0-125.0); Urine Protein/Creatinine Ratio 0.34
[2023-10-31 12:07] LABS: Alanine Aminotransferase 11 U/L (7-40); Albumin 3.9 g/dL (3.2-4.8); Alkaline Phosphatase 153 U/L (46-116); Anion Gap 4 (5-15); Aspartate Aminotransferase 15 U/L (13-40); BUN/Creatinine Ratio 28.6 (10.0-20.0); Bilirubin, Total 0.3 mg/dL (0.2-1.0); Blood Urea Nitrogen 24 mg/dL (9-23); Calcium 10.1 mg/dL (8.7-10.4); Carbon Dioxide 25 mmol/L (20-30); Chloride 110 mmol/L (98-107); GFR African American 84 mL/min; GFR Non-African American 69 mL/min; Glucose 119 mg/dL (74-106); Phosphorus 2.5 mg/dL (2.4-5.1); Potassium 4.1 mmol/L (3.5-5.1); Sodium 139 mmol/L (136-145); Uric Acid 4.5 mg/dL (3.1-7.8)
[2023-10-31 12:08] LABS: Total Protein 6.2 g/dL (5.7-8.2)
[2023-10-31 13:33] LABS: Lymphocytes % (manual) 65 (10.0-50.0); Monocytes % (manual) 2 (0-12); Platelet Estimate Adequate; Reactive Lymphocytes 1
== END | disposition home or self-care (01) ==
LOC: LAB 11:06
PROVIDERS: ATTEND Internal Medicine
DX: E21.3 Hyperparathyroidism, unspecified (principal); R82.90 Unspecified abnormal findings in urine; E78.5 Hyperlipidemia, unspecified; N18.31 Chronic kidney disease, stage 3a; M10.9 Gout, unspecified; D63.1 Anemia in chronic kidney disease; R80.9 Proteinuria, unspecified
CPT/HCPCS: 36415; 80053; 80069; 82306; 82570; 83615; 83970; 84156; 84550; 85007; 85027; 86300

== ENCOUNTER → 2024-05-06 | Outpatient (CLI) | payer OTHER ==
[2024-05-06 12:20] LABS: Hematocrit 41.5 % (36.0-46.0); Hemoglobin 13.2 g/dL (12.2-16.2); Mean Corpuscular Hemoglobin 28.5 pg (28.0-32.0); Mean Corpuscular Hgb Conc. 31.9 g/dL (32.0-36.0); Mean Corpuscular Volume 89.4 fL (80.0-100.0); Platelet Count (auto) 290 10^3/uL (140-450); Red Blood Cells 4.64 10^6/uL (4.0-5.20); Red Cell Distribution Width 14.8 % (11.8-14.3); White Blood Cell 19.6 10^3/uL (4.4-10.8)
[2024-05-06 12:22] LABS: Basophils % (manual) 0 (0.0-2.0); Blast Cells 0; Eosinophils % (manual) 0 (0-7); Metamyelocytes % 0; Myelocytes % 0; Promyelocytes % 0
[2024-05-06 12:36] LABS: Band Neutrophils % (manual) 1; Hypochromia Slight; Lymphocytes % (manual) 71 (10.0-50.0); Monocytes % (manual) 4 (0-12); Reactive Lymphocytes 3
[2024-05-06 12:37] LABS: Platelet Estimate Adequate
[2024-05-06 13:00] LABS: Alanine Aminotransferase 32 U/L (7-40); Albumin 4.4 g/dL (3.2-4.8); Alkaline Phosphatase 67 U/L (46-116); Anion Gap 8 (5-15); Aspartate Aminotransferase 28 U/L (13-40); BUN/Creatinine Ratio 12.5 (10.0-20.0); Bilirubin, Total 0.3 mg/dL (0.2-1.0); Blood Urea Nitrogen 15 mg/dL (9-23); Carbon Dioxide 28 mmol/L (20-31); Chloride 105 mmol/L (98-107); Magnesium 1.9 mg/dL (1.6-2.6); Potassium 4.1 mmol/L (3.5-5.1); Sodium 141 mmol/L (136-145); Total Protein 6.6 g/dL (5.7-8.2)
[2024-05-06 13:04] LABS: Calcium 10.9 mg/dL (8.7-10.4); Glucose 141 mg/dL (74-106)
[2024-05-06 13:53] LABS: Creatinine, Urine 54.39 mg/dL (30.0-125.0)
== END | disposition home or self-care (01) ==
LOC: LAB 11:45
PROVIDERS: ATTEND Internal Medicine
DX: C91.10 Chronic lymphocytic leukemia of B-cell type not having achieved remission (principal); E11.22 Type 2 diabetes mellitus with diabetic chronic kidney disease; N18.30 Chronic kidney disease, stage 3 unspecified; E11.21 Type 2 diabetes mellitus with diabetic nephropathy; N39.0 Urinary tract infection, site not specified; E55.9 Vitamin D deficiency, unspecified; E21.3 Hyperparathyroidism, unspecified; M10.9 Gout, unspecified; R80.9 Proteinuria, unspecified; D63.1 Anemia in chronic kidney disease
CPT/HCPCS: 36415; 80053; 82043; 82306; 82570; 83615; 83735; 83970; 85007; 85027; 86300

== ENCOUNTER → 2024-06-25 | Outpatient (CLI) | payer OTHER ==
[2024-06-25 14:55] LABS: Hematocrit 40.1 % (36.0-46.0); Hemoglobin 13.1 g/dL (12.2-16.2); Mean Corpuscular Hemoglobin 29.6 pg (28.0-32.0); Mean Corpuscular Hgb Conc. 32.6 g/dL (32.0-36.0); Mean Corpuscular Volume 90.6 fL (80.0-100.0); Platelet Count (auto) 301 10^3/uL (140-450); Red Blood Cells 4.43 10^6/uL (4.0-5.20); Red Cell Distribution Width 15.6 % (11.8-14.3); White Blood Cell 18.8 10^3/uL (4.4-10.8)
[2024-06-25 15:01] LABS: Basophils % (manual) 0 (0.0-2.0); Blast Cells 0; Eosinophils % (manual) 0 (0-7); Metamyelocytes % 0; Myelocytes % 0; Promyelocytes % 0
[2024-06-25 15:10] LABS: Alanine Aminotransferase 23 U/L (7-40); Albumin 4.3 g/dL (3.2-4.8); Alkaline Phosphatase 61 U/L (46-116); Anion Gap 7 (5-15); Aspartate Aminotransferase 27 U/L (13-40); BUN/Creatinine Ratio 14.1 (10.0-20.0); Blood Urea Nitrogen 14 mg/dL (9-23); Carbon Dioxide 28 mmol/L (20-31); Chloride 106 mmol/L (98-107); Glucose 88 mg/dL (74-106); Potassium 3.9 mmol/L (3.5-5.1); Sodium 141 mmol/L (136-145); Total Protein 6.6 g/dL (5.7-8.2); Triglycerides 123 mg/dL (< 150)
[2024-06-25 15:11] LABS: Bilirubin, Total 0.4 mg/dL (0.2-1.0)
[2024-06-25 15:12] LABS: Calcium 10.9 mg/dL (8.7-10.4); Cholesterol 265 mg/dL (< 200); HDL Cholesterol 86 mg/dL (40-59); LDL Cholesterol 154 mg/dL (< 100)
[2024-06-25 15:55] LABS: Band Neutrophils % (manual) 1; Large Platelets FEW; Lymphocytes % (manual) 72 (10.0-50.0); Monocytes % (manual) 2 (0-12); Platelet Estimate Adequate; Reactive Lymphocytes 3
== END | disposition home or self-care (01) ==
LOC: LAB 14:11
PROVIDERS: ATTEND Nurse Practitioner Family
DX: C91.10 Chronic lymphocytic leukemia of B-cell type not having achieved remission (principal); N25.81 Secondary hyperparathyroidism of renal origin; E03.9 Hypothyroidism, unspecified; E78.5 Hyperlipidemia, unspecified; Z00.01 Encounter for general adult medical examination with abnormal findings
CPT/HCPCS: 36415; 80053; 80061; 83970; 84443; 85007; 85027

== ENCOUNTER → 2024-06-25 | Outpatient (CLI) | payer OTHER ==
[~2024-06-25] MED LIST changes: +BUPIVACAINE HCL 0.25% P/F 10 ML VIAL ONE; +IOHEXOL 300 MG/ML 100ML BOTTLE IJ ONE; +LIDOCAINE 2% (LOCAL ANESTH.) PF 5ml SDV ONE; +LIDOCAINE 2%HCL (LOCAL ANESTH.) INJ 10ml MDV ONE; +methylPREDNISolone ACETATE 80 MG/ML VL ONE
--- NOTE | 2024-06-25 15:39 | DVH ---
XY FLUOROGUIDANCE FOR NEEDLE PLAC HISTORY: LEFT HIP FRACTURE COMPARISON: None PROCEDURE: The risks and benefits of the procedure including infection, hemorrhage and technical failure were di scussed with the patient, who agreed to proceed. The patient was positioned supine on the fluoroscopy table. Time out was performed. The left hip was localized using fluoroscopy, and the location on the skin for needle insertion was marked. The region was prepped and draped using routine sterile technique. Approximately 2 cc of lidocaine was injected for local anesthesia. A 22 gauge spinal needle was inserted, and intra-articular location was confir med by injection of less than 1 cc of iodinated contrast. 1 cc of methylprednisolone (80 mg/cc) and 4 cc of Bupivacaine (0.25%) and 5 cc of 2% Lidocaine was then injected without complication. Fluorosco py time was 0.2. DAP 2.85 The patient was informed of the temporary precautions to take following the procedure as well as of t he potential signs and symptoms which may indicate the need to contact physician, and expressed unde rstanding of this discussion. IMPRESSION: Successful steroid and anesthetic injection of the left hip.
--- NOTE | 2024-06-25 15:39 | DVH ---
XY L HIP 1V XRAY, HISTORY: LEFT HIP FRACTURE COMPARISON: None PROCEDURE: The risks and benefits of the procedure including infection, hemorrhage and technical failure were di scussed with the patient, who agreed to proceed. The patient was positioned supine on the fluoroscopy table. Time out was performed. The left hip was localized using fluoroscopy, and the location on the skin for needle insertion was marked. The region was prepped and draped using routine sterile technique. Approximately 2 cc of lidocaine was injected for local anesthesia. A 22 gauge spinal needle was inserted, and intra-articular location was confir med by injection of less than 1 cc of iodinated contrast. 1 cc of methylprednisolone (80 mg/cc) and 4 cc of Bupivacaine (0.25%) and 5 cc of 2% Lidocaine was then injected without complication. Fluorosco py time was 0.2. DAP 2.85 The patient was informed of the temporary precautions to take following the procedure as well as of t he potential signs and symptoms which may indicate the need to contact physician, and expressed under standing of this discussion. IMPRESSION: Successful steroid and anesthetic injection of the left hip.
== END | disposition home or self-care (01) ==
LOC: XYW 12:45
PROVIDERS: ATTEND Orthopaedic Surgery Adult Reconstructive Orthopaedic Surgery
DX: S72.002A Fracture of unspecified part of neck of left femur, initial encounter for closed fracture (principal); G47.09 Other insomnia; F41.8 Other specified anxiety disorders; Z90.710 Acquired absence of both cervix and uterus; Z98.51 Tubal ligation status; Z85.3 Personal history of malignant neoplasm of breast; Z88.0 Allergy status to penicillin; Z88.6 Allergy status to analgesic agent; Z82.49 Family history of ischemic heart disease and other diseases of the circulatory system; Z80.9 Family history of malignant neoplasm, unspecified; Z83.49 Family history of other endocrine, nutritional and metabolic diseases; X58.XXXA Exposure to other specified factors, initial encounter; Y93.89 Activity, other specified; Y92.89 Other specified places as the place of occurrence of the external cause; Y99.8 Other external cause status
CPT/HCPCS: 20610; 77002; J1010; J2003; J3490; Q9967; 73501

== ENCOUNTER 2024-09-02 14:54 | Outpatient (CLI) | payer OTHER ==
[~2024-09-02 14:54] MED LIST changes: -BUPIVACAINE HCL 0.25% P/F 10 ML VIAL ONE; -IOHEXOL 300 MG/ML 100ML BOTTLE IJ ONE; -LIDOCAINE 2% (LOCAL ANESTH.) PF 5ml SDV ONE; -LIDOCAINE 2%HCL (LOCAL ANESTH.) INJ 10ml MDV ONE; -methylPREDNISolone ACETATE 80 MG/ML VL ONE
[2024-09-02 15:13] LABS: Hemoglobin 12.4 g/dL (12.2-16.2); Mean Corpuscular Hemoglobin 30.5 pg (28.0-32.0); Mean Corpuscular Hgb Conc. 33.6 g/dL (32.0-36.0); Mean Corpuscular Volume 90.8 fL (80.0-100.0); Platelet Count (auto) 283 10^3/uL (140-450); Red Blood Cells 4.07 10^6/uL (4.0-5.20); Red Cell Distribution Width 14.3 % (11.8-14.3); White Blood Cell 21.9 10^3/uL (4.4-10.8)
[2024-09-02 15:19] LABS: Band Neutrophils % (manual) 0; Basophils % (manual) 0 (0.0-2.0); Blast Cells 0; Metamyelocytes % 0; Myelocytes % 0; Promyelocytes % 0
[2024-09-02 15:28] LABS: INR 0.99 (0.9-1.15); Partial Thromboplastin Time 24.1 SEC (24.5-34.5); Prothrombin Time 10.5 sec (9.3-11.8)
[2024-09-02 16:02] LABS: Anisocytosis Slight; Eosinophils % (manual) 1 (0-7); Lymphocytes % (manual) 76 (10.0-50.0); Monocytes % (manual) 5 (0-12); Platelet Estimate Adequate; Reactive Lymphocytes 3
[2024-09-02 16:03] LABS: Alanine Aminotransferase 19 U/L (7-40); Alkaline Phosphatase 54 U/L (46-116); Anion Gap 7 (5-15); Aspartate Aminotransferase 29 U/L (<34); Bilirubin, Total 0.3 mg/dL (0.2-1.0); Blood Urea Nitrogen 23 mg/dL (9-23); Calcium 10.9 mg/dL (8.7-10.4); Carbon Dioxide 29 mmol/L (20-31); Chloride 109 mmol/L (98-107); Glucose 87 mg/dL (74-106); Potassium 4.2 mmol/L (3.5-5.1); Sodium 145 mmol/L (136-145); Total Protein 6.1 g/dL (5.7-8.2)
[2024-09-02 16:04] LABS: Large Platelets FEW
== END 2024-09-02 17:00 | disposition home or self-care (01) ==
LOC: LAB 14:54
PROVIDERS: ATTEND Nurse Practitioner Family
DX: M70.61 Trochanteric bursitis, right hip (principal); M70.71 Other bursitis of hip, right hip
CPT/HCPCS: 36415; 80053; 85007; 85027; 85610; 85730

== ENCOUNTER → 2024-09-10 | Outpatient (CLI) | payer OTHER ==
[2024-09-10 10:42] LABS: Hematocrit 37.2 % (36.0-46.0); Hemoglobin 12.5 g/dL (12.2-16.2); Mean Corpuscular Hemoglobin 30.5 pg (28.0-32.0); Mean Corpuscular Volume 90.9 fL (80.0-100.0)
[2024-09-10 11:12] LABS: Potassium 3.8 mmol/L (3.5-5.1); Sodium 140.0 mmol/L (136-145)
[2024-09-10 11:13] LABS: Anion Gap 7.0 (5-15); Carbon Dioxide 26.0 mmol/L (20-31)
[2024-09-10 11:15] LABS: Calcium 10.9 mg/dL (8.7-10.4); Chloride 107.0 mmol/L (98-107)
[2024-09-10 11:17] LABS: Urine Protein, UAD Negative (Negative); Urine WBC Clumps PRESENT /hpf (None Seen)
[2024-09-10 11:18] LABS: BUN/Creatinine Ratio 19.0 (10.0-20.0); Blood Urea Nitrogen 20.0 mg/dL (9-23)
[2024-09-10 11:20] LABS: Albumin 4.2 g/dL (3.2-4.8)
[2024-09-10 11:27] LABS: Glucose 126.0 mg/dL (74-106)
[2024-09-10 11:46] LABS: Protein, Urine 24.5 mg/dL (1-14)
[2024-09-10 11:52] LABS: Uric Acid 5.0 mg/dL (3.1-7.8)
[2024-09-10 13:57] LABS: Total Cells Counted 100.0 (100)
== END | disposition home or self-care (01) ==
LOC: LAB 10:26
PROVIDERS: ATTEND Internal Medicine
DX: E11.22 Type 2 diabetes mellitus with diabetic chronic kidney disease (principal); E11.21 Type 2 diabetes mellitus with diabetic nephropathy; N18.30 Chronic kidney disease, stage 3 unspecified; E21.3 Hyperparathyroidism, unspecified; E55.9 Vitamin D deficiency, unspecified; D63.1 Anemia in chronic kidney disease; N39.0 Urinary tract infection, site not specified; R80.9 Proteinuria, unspecified; M10.9 Gout, unspecified
CPT/HCPCS: 36415; 80069; 81001; 82306; 82570; 83970; 84156; 84550; 85007; 85027

== ENCOUNTER → 2024-09-11 | Outpatient (CLI) | payer OTHER ==
[~2024-09-11] MED LIST changes: +BUPIVACAINE HCL 0.25% P/F 10 ML VIAL ONE; +IOHEXOL 300 MG/ML 100ML BOTTLE IJ ONE; +LIDOCAINE 2%HCL (LOCAL ANESTH.) INJ 10ml MDV ONE; +methylPREDNISolone ACETATE 80 MG/ML VL ONE
--- NOTE | 2024-09-11 10:59 | DVH ---
XY FLUOROGUIDANCE FOR NEEDLE PLAC HISTORY: RIGHT HIP PAIN COMPARISON: XY FLUOROGUIDANCE FOR NEEDLE PLAC on DOS: 06/25/24 PROCEDURE: The risks and benefits of the procedure including infection, hemorrhage and technical failure were di scussed with the patient, who agreed to proceed. The patient was positioned supine on the fluoroscopy table. Time out was performed. The right hip was localized using fluoroscopy, and the location on the skin for needle insertion was marked. The regio n was prepped and draped using routine sterile technique. Approximately 1 cc of lidocaine was injecte d for local anesthesia. A 22 gauge spinal needle was inserted, and intra-articular location was confi rmed by injection of less than 1 cc of iodinated contrast. 1 cc of methylprednisolone (80 mg/cc) and 4 cc of Bupivacaine (0.25%) and 5 cc of 2% Lidocaine was then injected without complication. Fluorosc opy time was 0.4 minutes. DAP 28 . The patient was informed of the temporary precautions to take following the procedure as well as of t he potential signs and symptoms which may indicate the need to contact physician, and expressed unde rstanding of this discussion. IMPRESSION: Steroid and anesthetic injection of the right hip.
== END | disposition home or self-care (01) ==
LOC: XY 09:30
PROVIDERS: ATTEND Nurse Practitioner Family
DX: M25.551 Pain in right hip (principal)
CPT/HCPCS: 20610; 73501; 77002; J1010; J2003; J3490; Q9967

== ENCOUNTER 2024-11-05 12:11 | Outpatient (CLI) | payer OTHER ==
[~2024-11-05 12:11] MED LIST changes: -BUPIVACAINE HCL 0.25% P/F 10 ML VIAL ONE; -IOHEXOL 300 MG/ML 100ML BOTTLE IJ ONE; -LIDOCAINE 2%HCL (LOCAL ANESTH.) INJ 10ml MDV ONE; -methylPREDNISolone ACETATE 80 MG/ML VL ONE
[2024-11-05 12:42] LABS: Hematocrit 38.5 % (36.0-46.0); Hemoglobin 12.9 g/dL (12.2-16.2); Mean Corpuscular Hemoglobin 30.7 pg (28.0-32.0); Mean Corpuscular Volume 91.6 fL (80.0-100.0)
[2024-11-05 13:05] LABS: Albumin 4.3 g/dL (3.2-4.8); Alkaline Phosphatase 63 U/L (46-116); Anion Gap 7 (5-15); BUN/Creatinine Ratio 18.8 (10.0-20.0); Blood Urea Nitrogen 18 mg/dL (9-23); Carbon Dioxide 28 mmol/L (20-31); Chloride 106 mmol/L (98-107); Potassium 4.2 mmol/L (3.5-5.1); Sodium 141 mmol/L (136-145); Total Protein 6.3 g/dL (5.7-8.2)
[2024-11-05 13:06] LABS: Alanine Aminotransferase 45 U/L (7-40); Bilirubin, Total 0.3 mg/dL (0.2-1.0); Calcium 10.5 mg/dL (8.7-10.4); Glucose 73 mg/dL (74-106)
[2024-11-05 14:09] LABS: Total Cells Counted 100.0 (100)
== END 2024-11-05 17:00 | disposition home or self-care (01) ==
LOC: LAB 12:11
PROVIDERS: ATTEND Internal Medicine
DX: C91.10 Chronic lymphocytic leukemia of B-cell type not having achieved remission (principal)
CPT/HCPCS: 36415; 80053; 82306; 83615; 85007; 85027; 86300

== ENCOUNTER 2024-12-23 08:07 | Inpatient (IN) | payer OTHER ==
[2024-12-19 12:03] LABS: Urine Budding Yeast MODERATE /hpf (None Seen); Urine Protein, UAD Negative (Negative); Urine WBC Clumps PRESENT /hpf (None Seen)
[2024-12-19 12:11] LABS: INR 0.99 (0.9-1.15); Partial Thromboplastin Time 24.8 SEC (24.5-34.5); Prothrombin Time 10.5 sec (9.3-11.8)
[2024-12-19 12:20] LABS: Alanine Aminotransferase 26 U/L (7-40); Albumin 4.2 g/dL (3.2-4.8); Alkaline Phosphatase 73 U/L (46-116); Anion Gap 9 (5-15); BUN/Creatinine Ratio 22.5 (10.0-20.0); Blood Urea Nitrogen 23 mg/dL (9-23); Calcium 9.9 mg/dL (8.7-10.4); Carbon Dioxide 28 mmol/L (20-31); Chloride 106 mmol/L (98-107); Potassium 4.4 mmol/L (3.5-5.1); Sodium 143 mmol/L (136-145); Total Protein 6.6 g/dL (5.7-8.2)
[2024-12-19 12:21] LABS: Bilirubin, Total 0.3 mg/dL (0.2-1.0); Glucose 72 mg/dL (74-106)
[~2024-12-23] VITALS: Ht 162.6 cm; Wt 56.4 kg
[~2024-12-23 08:07] MED LIST changes: -CYCL-839 PO; -DEX4T PO; -LEV25T PO
[2024-12-23] MEDS: CELECOXIB 100 MG CAP PO ONE (08:55)
[2024-12-23] MEDS: ACETAMINOPHEN IV 1000 MG/100ML (10MG/ML) IV ONE (08:55)
[2024-12-23] MEDS: PREGABALIN CAPSULE 75 MG CAP PO ONE (08:55)
[2024-12-23] MEDS ORDERED: MORPHINE SULF PF 5 MG/10 ML VIAL ONE (08:57)
[2024-12-23] MEDS ORDERED: MIDAZOLAM HCL 2MG/2ML 2ml VIAL (1mg/ml) ONE (08:57)
[2024-12-23] MEDS ORDERED: fentaNYL CITRATE 100 MCG/2 ML VL ONE (08:57)
[2024-12-23] MEDS: ceFAZolin 2 GM/D5W50ml 50 ML IV ONE (09:03)
[2024-12-23] MEDS: CEFEPIME 1GM/50ML 50 ML IV ONE (09:03)
[2024-12-23] MEDS ORDERED: MIDAZOLAM HCL 2MG/2ML 2ml VIAL (1mg/ml) IV PRN (09:30)
[2024-12-23] MEDS ORDERED: HYDROmorphone HCL 2 MG/ML VL/or syr IV PRN ×2 (09:30→10:45)
[2024-12-23] MEDS ORDERED: hydrALAZINE HCL 20 MG/ML VL IV PRN (09:30)
[2024-12-23] MEDS: TRANEXAMIC ACID 20 ML ONE (09:38)
[2024-12-23] MEDS ORDERED: PROPOFOL 10 MG/ML 20 ML IV ONE (09:55)
[2024-12-23] MEDS: VANCOMYCIN HCL 1000 MG VL ONE (10:34)
[2024-12-23] MEDS: MORPHINE SULF PF 5 MG/10 ML VIAL IT ONE (10:34)
[2024-12-23] MEDS: KETOROLAC TROMETH 30 MG/ML 1ML VIAL IM ONE (10:34)
[2024-12-23] MEDS: BUPIVACAINE 0.25% INJ 50ML VIAL ONE (10:34)
[2024-12-23] MEDS ORDERED: ONDANSETRON HCL 4 MG/2 ML VIAL IV PRN (10:45)
[2024-12-23] MEDS ORDERED: MORPHINE SULFATE INJ 2 MG/ml SYRG IV PRN (10:45)
[2024-12-23] MEDS ORDERED: NITROGLYCERIN 0.4 MG SL TAB SL PRN (10:45)
[2024-12-23] MEDS: VANCOMYCIN 1GM/250ML KIT 250 ML IV SCH (10:45)
--- NOTE | 2024-12-23 11:19 | DVHOP2 ---
Operative Report - 2 Report Details Date: 12/23/24 Preop Diagnosis: Failed Right hip Hemiarthroplasty Postop Diagnosis: Same Surgeon: Cindi Shetty MD Anesthesiologist: See Chart Anesthesia: Mac, Regional Consent: The patient was informed of the risks and benefits of the procedure. These include but are not limited to complications of anesthesia, postoperative infection, incomplete relief of symptoms, recurrence of symptoms, damage to blo od vessels, nerves and tendons, deep venous thrombosis, pulmonary embolism and possible need for repeat surgery in the future. Estimated Blood Loss: 500ml Name of Procedure Performed Right Hip Conversion: Bipolar Hemiarthroplasty to Total Hip Arthroplasty Revision scar Procedure Details Procedure Details: The patient was positioned in the lateral decubitus position with appropriate padding to the axilla, pelvis, and lower extremities. The nonoperative leg was fitted with a compression stocking and sequential compression device. The operative site was prepped and draped in the standard sterile fashion. The orthopedic team utilized body exhaust suits. A posterior approach was utilized. A skin incision was made posterior to the greater trochanter. Dissection was carried through subcutaneous tissue, and the fascia of the gluteus aline was split in line with its fibers, including a portion of the distal iliotibial band. A Charnley self-retaining retractor was placed, with care taken to protect the sciatic nerve. The hip was internally rotated, and the short external rotators were detached from the greater trochanter. Capsulotomy was performed, and the bipolar prosthesis was dislocated and removed. Large posterior osteophytes were identified and excised to facilitate exposure and optimize component positioning. Attention was then directed to the acetabulum. Acetabular retractors were placed for exposure. The labrum and pulvinar were excised. Sequential reaming was performed to 54 mm. A trial acetabular component was inserted and found to have satisfactory fit. The definitive Sol[employer]hew 54 mm multihole acetabular cup was implanted at approximately 45 abduction and 20 anteversion, secured with multiple screws. A dual mobility construct was utilized to optimize stability. The liner was seated and tested for stability. The femur was then prepared. A femoral elevator was used for exposure, and the canal was prepared using sequential reaming and broaching. The appropriate Solorz[employer]hew femoral component was selected and implanted. The trunnion was cleaned and dried, and the dual mobility head was impacted. The hip was reduced and stability confirmed. The wound was irrigated with pulsatile lavage and a dilute betadine solution. Local anesthetic cocktail was injected into the soft tissues. The capsule and sh ort external rotators were repaired with #5 FiberWire. The fascia was closed with #1 absorbable suture, and the subcutaneous tissue with 2-0 absorbable suture. Skin was closed with madison. A sterile dressing was applied, and an abduction pillow was placed. The patient was transferred to the recovery room in stable condition. Instrument Count: Correct Surgeon Presence: I was present for the entire procedure. Intraoperative Challenges: The procedure was technically demanding due to acetabular bone loss, large posterior osteophytes, and the need for conversion from a bipolar hemiarthroplasty to a total hip arthroplasty. Additional operative time and advanced reconstructive techniques were required to achieve stable fixation and restore hip biomechanics. Condition Good Disposition Postoperative Plan: CINDI SHETTY DO Dec 23, 2024 11:19
[2024-12-23 11:55] VITALS: PULSE 42; RESP 12
--- NOTE | 2024-12-23 12:41 | DVH ---
CLINICAL INDICATION: sp Right SIDRA TECHNIQUE: 1 radiographic views of the pelvis were obtained. Comparison: MRI PELVIS WO CONTRAST on DOS: 11/07/24, CT PELVIS WO CONTRAST on DOS: 08/28/23, XY PELVIS AP on DOS: 08/28/23 FINDINGS/IMPRESSION: Total right hip prosthesis is in place Femoral prosthetic junction is intact there are no fractures. Skin closure madison over the right hip Probable old fracture healed superior and inferior pubic ramus on the left.
[2024-12-23] MEDS: ONDANSETRON HCL 4 MG/2 ML VIAL IV PRN (13:47)
--- NOTE | 2024-12-23 14:33 | DVHHP2 ---
Review of Systems Allergies: Coded Allergies: Aspirin (Verified Allergy, Unknown, 06/01/23) Penicillins (Verified Allergy, Unknown, 06/01/23) Medications Current Medications Medications Dose Ordered Sig/Blue Route Start Time Stop Time Status Last Admin Dose Admin Multivitamins 1 tab DAILY PO 12/24/24 10:00 Potassium Chloride 20 meq BID PO 12/23/24 22:00 UNV Pravastatin Sodium 20 mg DAILY PO 12/24/24 10:00 Vancomycin HCl 250 ml @ 250 mls/hr Q12H IV 12/23/24 10:45 12/23/24 23:44 UNV Lactated Ringer's 1,000 ml @ 100 mls/hr Q10H IV 12/23/24 10:45 Acetaminophen 650 mg Q6HP PRN PO 12/23/24 10:45 Acetaminophen/ Hydrocodone Bitart 1 tab Q4HP PRN PO 12/23/24 10:45 Hydromorphone HCl 1 mg Q2HP PRN IV 12/23/24 10:45 Ondansetron HCl 4 mg Q6HP PRN IV 12/23/24 10:45 Docusate Sodium 100 mg Q12HR PO 12/23/24 22:00 Enoxaparin Sodium 30 mg DAILY SC 12/24/24 10:00 UNV Nitroglycerin 0.4 mg Q5MINP PRN SL 12/23/24 10:45 Morphine Sulfate 2 mg Q30M PRN IV 12/23/24 10:45 Exam Vital Signs Vital Signs Date Time Temp Pulse Resp B/P (MAP) Pulse Ox O2 Delivery O2 Flow Rate FiO2 12/23/24 13:40 61 12 187/85 (119) 98 12/23/24 12:59 Room Air 0 100 12/23/24 11:55 97.6 97.6 Labs/Xrays Labs Test 12/19/24 11:35 Range/Units Prothrombin Time 10.5 9.3-11.8 sec Prothrombin Time INR 0.99 0.9-1.15 Activated Partial Thromboplast Time 24.8 24.5-34.5 SEC Urine Color Light-yellow Yellow Urine Clarity Turbid H Clear Urine pH 7.0 5.0-9.0 Urine Specific Hanna 1.015 1.001-1.035 Urine Protein Negative Negative Urine Ketones Negative Negative Urine Blood Negative Negative /uL Urine Nitrite 1+ H Negative Urine Bilirubin Negative Negative Urine Urobilinogen Normal Negative mg/dL Urine Leukocyte Esterase 3+ Negative /uL Urine RBC 8 0 - 4 /hpf Urine WBC Clumps Present None Seen /hpf Urine Microscopic WBC 161 H 0-5 /HPF Urine Squamous Epithelial Cells Few <5 /hpf Urine Bacteria Few H None Seen /hpf Urine Mucus Few None Seen Urine Yeast (Budding) Moderate None Seen /hpf Urine Glucose Normal Normal mg/dL Sodium Level 143 136-145 mmol/L Potassium Level 4.4 3.5-5.1 mmol/L Chloride Level 106 98-107 mmol/L Carbon Dioxide Level 28 20-31 mmol/L Anion Gap 9 5-15 Blood Urea Nitrogen 23 9-23 mg/dL Creatinine 1.02 0.550-1.02 mg/dL Glomerular Filtration Rate Calc 55 >90 mL/min BUN/Creatinine Ratio 22.5 H 10.0-20.0 Serum Glucose 72 L 74-106 mg/dL Calcium Level 9.9 8.7-10.4 mg/dL Total Bilirubin 0.3 0.2-1.0 mg/dL Aspartate Amino Transferase (AST) 33 13-40 U/L Alanine Aminotransferase (ALT) 26 7-40 U/L Alkaline Phosphatase 73 46-116 U/L Total Protein 6.6 5.7-8.2 g/dL Albumin 4.2 3.2-4.8 g/dL SEPSIS Sepsis Screen Physician Orders Maintain Hob >30 QSHIFT (12/23/24:) Ensure Naloxone 0.4mg Availabl (12/23/24:) May Receive Pain Meds Per Surg (12/23/24) Check Respiratory Rate Q1hr (12/23/24) Check Pulse And Bp Q1hr (12/23/24:) Give Naloxone If Rr<10/Min (12/23/24:) Pain Medication As Ordered (12/23/24) Call Anesthesiologist For Side (12/23/24) Received Epi/Spinal Morphine (12/23/24) Oxygen By Face Mask (12/23/24) Oxygen By Nasal Cannula (12/23/24) Acute Dialysis Registered Nurse (12/23/24) Notify Anesth. For Changes: (12/23/24) Pulse Ox Assessment (10/13/25 09:23) May Have Head Of Bed Up (12/23/24 09:23) Continue Present Iv (12/23/24 09:23) Follow Iv With Surgeon Orders (12/23/24 09:23) Discharge To Room Per Criteria (12/23/24 09:23) Anaerobic Culture (12/23/24 09:47) Routine Bacterial Culture (12/23/24 09:47) Anaerobic Culture (12/23/24 09:48) Routine Bacterial Culture (12/23/24 09:48) Anaerobic Culture (12/23/24 09:49) Routine Bacterial Culture (12/23/24 09:49) Multiple Vitamin Tablet (Mvi Tab) (12/24/24 10:00) Potassium Er Tablet (Klor-Con Tablet) (12/23/24 22:00) Pravastatin Sodium Tablet (Pravachol Tab (12/24/24 10:00) Vancomycin 1gm/250ml Kit (12/23/24 10:45) * Hospitalist Consult (12/23/24 ) Patient Condition Stable (12/23/24 10:35) Hemoglobin & Hematocrit (12/25/24 07:00) Hemoglobin & Hematocrit (12/26/24 07:00) Hemoglobin & Hematocrit (12/27/24 07:00) Regular Diet (12/23/24 Lunch) Vital Signs .PER UNIT PROTOCOL (12/23/24 10:35) Weight-Bearing Restrictions (12/23/24 10:35) Lactated Ringer's (12/23/24 10:45) Acetaminophen Tablet (Tylenol Tablet) (12/23/24 10:45) Hydrocodone-Acet 5/325mg Tab ([place] 5/32 (12/23/24 10:45) Hydromorphone Injection (Dilaudid Inject (12/23/24 10:45) Ondansetron Hcl (Zofran) (12/23/24 10:45) Docusate Sodium Capsule (Colace Capsule) (12/23/24 22:00) Enoxaparin Sodium (Lovenox) (12/24/24 10:00) Pt Request For Service (12/23/24 10:35) Call/Page Hospitalist/Atten Fo (12/23/24 10:35) Pelvis Ap (12/23/24 10:35) Incentive Spirometry (12/23/24 10:35) Nitroglycerin Sublingual (Ntrostat Subli (12/23/24 10:45) Morphine Sulfate Injection (12/23/24 10:45) Stat Ekg For Chest Pain (12/23/24 10:35) Notify Of Changes From Base (12/23/24 10:35) Gluing Machine Operator For 24 Hours (12/23/24 10:35) Emergency Dysrhythmia Protocol (12/23/24 10:35) Rhythm Strips Once Every Shift (12/23/24 10:35) Oxygen By Nasal Cannula (12/23/24 10:35) Apply Ice To Affected Area (12/23/24 10:35) Admit (12/23/24 13:47) Electrocardigram (12/23/24 13:31) Vital Signs Date Time Temp Pulse Resp B/P (MAP) Pulse Ox O2 Delivery O2 Flow Rate FiO2 12/23/24 13:40 61 12 187/85 (119) 98 12/23/24 13:10 68 13 100/62 (75) 100 12/23/24 12:59 Room Air 0 100 12/23/24 12:40 61 12 102/59 (73) 100 12/23/24 12:25 66 12 100/59 (73) 100 12/23/24 12:10 73 14 87/47 (60) 100 12/23/24 12:05 54 12 122/61 (81) 100 12/23/24 12:00 51 12 132/70 (90) 100 12/23/24 11:55 Mask 8.0 100 12/23/24 11:55 42 12 12/23/24 11:55 97.6 42 12 146/62 (90) 100 97.6 12/23/24 08:20 98.4 82 18 145/76 (99) 96 98.4 Medications Medications Dose Ordered Sig/Blue Route Start Time Stop Time Status Last Admin Dose Admin Acetaminophen 1,000 mg ONCE ONCE IV 12/23/24 09:15 12/23/24 09:26 DC 12/23/24 08:55 1,000 MG Bupivacaine HCl 50 ml STK-MED ONCE .ROUTE 12/23/24 08:27 12/23/24 08:24 DC 12/23/24 10:34 40 ML Cefazolin Sodium/ Dextrose 50 ml @ STK-MED ONCE IV 12/23/24 08:18 12/23/24 08:14 DC 12/23/24 09:03 Cefepime HCl 50 ml @ ud STK-MED ONCE IV 12/23/24 08:27 12/23/24 08:24 DC 12/23/24 09:03 Celecoxib 400 mg ONCE ONCE PO 12/23/24 09:15 12/23/24 09:26 DC 12/23/24 08:55 400 MG Ketorolac Tromethamine 30 mg STK-MED ONCE IM 12/23/24 10:34 12/23/24 10:43 DC 12/23/24 10:34 30 MG Morphine Sulfate 5 mg STK-MED ONCE IT 12/23/24 10:34 12/23/24 10:43 DC 12/23/24 10:34 5 MG Ondansetron HCl 4 mg Q4HP PRN IV 12/23/24 09:30 12/23/24 14:26 DC 12/23/24 13:47 4 MG Pregabalin 300 mg ONCE ONCE PO 12/23/24 09:15 12/23/24 09:26 DC 12/23/24 08:55 300 MG Tranexamic Acid 20 ml @ ud STK-MED ONCE .ROUTE 12/23/24 08:27 12/23/24 08:23 DC 12/23/24 09:38 Vancomycin HCl 2,000 mg STK-MED ONCE .ROUTE 12/23/24 08:26 12/23/24 08:23 DC 12/23/24 10:34 2,000 MG Assessment/Plan Assessment/Plan see dictated note Plan discussed with: Patient Date of Service: Dec 23, 2024 Billing Provider: VANESA TURNER MD Common Visit Codes: [id number] INP/OBS CARE (HIGH) Secondary Visit Codes: [id number] CARE PLAN 30 MINUTES VANESA TURNER MD Dec 23, 2024 14:33
--- NOTE | 2024-12-23 14:43 | DVHHP ---
ADMIT DATE: 12/23/2024 HISTORY OF PRESENT ILLNESS: The patient is an 84-year-old lady who is admitted after she underwent surgery on the right hip and a revision. The patient at this time denies any significant pain. No chest pain, no shortness of breath. No nausea or vomiting. REVIEW OF SYSTEMS: Review of rest systems otherwise currently negative. PAST MEDICAL HISTORY: Significant for hyperlipidemia, osteoporosis, previous history of breast cancer. MEDICATIONS: Include tramadol, Pravachol. ALLERGIES: ASPIRIN AND PENICILLIN. SOCIAL HISTORY: Lives alone. Denies smoking or alcohol. FAMILY HISTORY: Negative. PHYSICAL EXAMINATION: GENERAL: The patient is awake, alert. VITAL SIGNS: Temperature of 97.6, pulse of 66 per minute, blood pressure 102/59. SHEENT: Unremarkable. NECK: There is no JVD. No pedal edema. LUNGS: Equal bilaterally. No added sounds. CARDIOVASCULAR: S1 and S2 is regular. No murmurs. ABDOMEN: Soft. There is no organomegaly. NEUROLOGIC: Nonfocal. MUSCULOSKELETAL: There is a dressing at the site of right hip surgery. ASSESSMENT AND PLAN: * Urinary tract infection. The patient will have urinalysis and urine culture and be placed on intravenous Rocephin. * Osteoporosis. * Hyperlipidemia. * History of breast cancer. * Status post right hip arthroplasty for which the patient will be placed on pain medications and receive physical therapy. * Advanced care planning. The patient is a full code-Time spent was 17 minutes. MD MERARY Martinez/BRENT TID: [id number] RECEIPT: [id number] [facility]
[2024-12-23] MEDS: TETRACAINE 1% INJ 2 ML VIAL IJ ONE (15:30)
[2024-12-23] MEDS: ROPIVACAINE 0.5% (5MG/ML) 20ML AMPULE IJ ONE (15:31)
[2024-12-23] MEDS: ACETAMINOPHEN IV 100 ML IV ONE (15:31)
[2024-12-23] MEDS: PREGABALIN CAPSULE 75 MG CAP ONE (15:32)
[2024-12-23] MEDS: CELECOXIB 100 MG CAP ONE (15:32)
[2024-12-23] MEDS: HYDROCORTISONE SOD SUCC 100 MG/2ML INJ VIAL IV ONE (17:08)
[2024-12-23] MEDS: LACTATED RINGER'S 1,000 ML IV SCH (18:18)
[2024-12-23] MEDS: cefTRIAXone SOD 1,000 MG VL ONE (18:27)
[2024-12-23 21:00] VITALS: BP 87/46; PULSE 66; RESP 12; TEMP 97.6; O2SAT 93
[2024-12-23 21:10] VITALS: BP 85/50; PULSE 82; RESP 12; TEMP 97.6; O2SAT 100
[2024-12-23] MEDS: DOCUSATE SOD 100 MG CAP PO SCH (22:01)
[2024-12-23] MEDS: SODIUM CHLORIDE 0.9% 500 ML IV ONE (22:01)
[2024-12-23] MEDS: POTASSIUM CHL 20 Meq TABLET PO SCH (22:01)
[2024-12-23 22:02] VITALS: BP 84/50; PULSE 75; RESP 17
[2024-12-23 23:00] VITALS: BP 79/42; PULSE 64; RESP 10; O2SAT 100
[2024-12-23 23:52] VITALS: PULSE 66; PULSE 68
[2024-12-24] VITALS (104 sets, daily range): BP systolic 72–139; BP diastolic 35–95; PULSE 50–96; RESP 9–28; TEMP 95.4–100.2; O2SAT 76–100
[2024-12-24] MEDS: ALBUMIN 5% 250 ML IV ONE
[2024-12-24 00:30] LABS: Hematocrit 25.4 % (36.0-46.0); Hemoglobin 8.1 g/dL (12.2-16.2); Mean Corpuscular Hemoglobin 30.9 pg (28.0-32.0); Mean Corpuscular Volume 96.4 fL (80.0-100.0); Nucleated Red Blood Cells % 0.0 %
[2024-12-24] MEDS: PHENYLEPHRINE IV 250 ML IV SCH (02:28)
[2024-12-24 03:38] LABS: Hemoglobin 7.7 g/dL (12.2-16.2)
[2024-12-24 03:39] LABS: Hematocrit 23.5 % (36.0-46.0); Mean Corpuscular Hemoglobin 30.1 pg (28.0-32.0); Mean Corpuscular Volume 91.9 fL (80.0-100.0); Nucleated Red Blood Cells % 0.1 %
[2024-12-24 03:52] LABS: Alanine Aminotransferase 24 U/L (7-40); Anion Gap 10 (5-15); BUN/Creatinine Ratio 20.0 (10.0-20.0); Blood Urea Nitrogen 14 mg/dL (9-23); Carbon Dioxide 24 mmol/L (20-31); Potassium 4.7 mmol/L (3.5-5.1); Sodium 144 mmol/L (136-145)
[2024-12-24 04:02] LABS: Albumin 2.9 g/dL (3.2-4.8); Alkaline Phosphatase 43 U/L (46-116); Bilirubin, Total 0.2 mg/dL (0.2-1.0); Calcium 7.9 mg/dL (8.7-10.4); Chloride 110 mmol/L (98-107); Glucose 134 mg/dL (74-106); Total Protein 4.5 g/dL (5.7-8.2)
--- NOTE | 2024-12-24 08:29 | DVHPN2 ---
Progress Note Date Seen: Dec 24, 2024 Medical Necessity Reason Pt with a Central, PICC or Fol: Yes The following are medically ne: Perea Catheter Subjective Patient reports: No new complaints Objective vital signs Vital Sign Date Time Temp Pulse Resp B/P (MAP) Pulse Ox O2 Delivery O2 Flow Rate FiO2 12/24/24 06:45 99.3 87 17 101/54 (70) 94 210.7 12/24/24 05:59 Room Air* 0 21 Total Intake and Output 12/23/24 12/23/24 12/24/24 15:00 23:00 07:00 Intake Total 220 ml 300 ml 2420 ml Output Total 750 ml Balance 220 ml 300 ml 1670 ml medications Current Medications Medications Dose Ordered Sig/Blue Route Start Time Stop Time Status Last Admin Dose Admin Multivitamins 1 tab DAILY PO 12/24/24 10:00 Potassium Chloride 20 meq BID PO 12/23/24 22:00 12/23/24 22:01 20 MEQ Pravastatin Sodium 20 mg DAILY PO 12/24/24 10:00 Lactated Ringer's 1,000 ml @ 100 mls/hr Q10H IV 12/23/24 10:45 12/24/24 02:16 100 MLS/HR Acetaminophen 650 mg Q6HP PRN PO 12/23/24 10:45 Acetaminophen/ Hydrocodone Bitart 1 tab Q4HP PRN PO 12/23/24 10:45 Ondansetron HCl 4 mg Q6HP PRN IV 12/23/24 10:45 Docusate Sodium 100 mg Q12HR PO 12/23/24 22:00 12/23/24 22:01 100 MG Enoxaparin Sodium 30 mg DAILY SC 12/24/24 10:00 Nitroglycerin 0.4 mg Q5MINP PRN SL 12/23/24 10:45 Morphine Sulfate 2 mg Q30M PRN IV 12/23/24 10:45 Hydromorphone HCl 1 mg Q3HP PRN IV 12/23/24 14:45 Ceftriaxone Sodium 50 ml @ 100 mls/hr DAILY@09 IV 12/24/24 09:00 Phenylephrine HCl 250 ml @ 30 mls/hr Q8H20M IV 12/24/24 02:30 12/24/24 02:28 30 MLS/HR Examination: GENERAL:Normal, MSK:Abnormal laboratory and microbiology Laboratory Tests 12/24/24 02:46 Test 12/24/24 02:46 Range/Units Serum Glucose 134 H 74-106 mg/dL Problem List/Assessment/Plan Problem List/Assessment/Plan 84 year old female who is s/p Revision of Right SIDRA POD 1 1. WBAT RLE 2. Pain control 3. continue with medical management for hypotension 4. can proceed with PT once medically stable 5. DVT ppx Plan discussed with: Patient Date of Service: Dec 24, 2024 Billing Provider: DA HOLLOWAY MD Common Visit Codes: NOT BILLABLE DEANN BENAVIDES NP Dec 24, 2024 08:29
[2024-12-24] MEDS: MULTIPLE VITAMIN TAB PO SCH (10:07)
[2024-12-24] MEDS: PRAVASTATIN SODIUM 20 MG TAB PO SCH (10:09)
[2024-12-24] MEDS: ACETAMINOPHEN 325 MG TAB PO PRN (10:10)
[2024-12-24] MEDS: ENOXAPARIN SOD 30 MG/0.3 ML SYRINGE SC SCH (10:10)
--- NOTE | 2024-12-24 13:29 | DVHPN2 ---
Progress Note Date Seen: Dec 24, 2024 Medical Necessity Reason Pt with a Central, PICC or Fol: Yes The following are medically ne: Rose Catheter Reason for rose catheter: Strict I&O Subjective Patient reports: No new complaints Review of Systems: HEENT:Normal, CVS:Normal, RESPIRATORY:Normal, GI:Normal, :Normal, MSK:Normal, NEURO:Normal Objective vital signs Vital Sign Date Time Temp Pulse Resp B/P (MAP) Pulse Ox O2 Delivery O2 Flow Rate FiO2 12/24/24 10:28 76/38 12/24/24 08:00 68 15 96 Room Air* 0 21 12/24/24 06:45 99.3 210.7 Total Intake and Output 12/23/24 12/23/24 12/24/24 15:00 23:00 07:00 Intake Total 220 ml 300 ml 2420 ml Output Total 750 ml Balance 220 ml 300 ml 1670 ml medications Current Medications Medications Dose Ordered Sig/Blue Route Start Time Stop Time Status Last Admin Dose Admin Multivitamins 1 tab DAILY PO 12/24/24 10:00 12/24/24 10:07 1 TAB Potassium Chloride 20 meq BID PO 12/23/24 22:00 12/24/24 10:07 20 MEQ Pravastatin Sodium 20 mg DAILY PO 12/24/24 10:00 12/24/24 10:09 20 MG Lactated Ringer's 1,000 ml @ 100 mls/hr Q10H IV 12/23/24 10:45 12/24/24 02:16 100 MLS/HR Acetaminophen 650 mg Q6HP PRN PO 12/23/24 10:45 12/24/24 10:10 650 MG Acetaminophen/ Hydrocodone Bitart 1 tab Q4HP PRN PO 12/23/24 10:45 Ondansetron HCl 4 mg Q6HP PRN IV 12/23/24 10:45 Docusate Sodium 100 mg Q12HR PO 12/23/24 22:00 12/24/24 10:07 100 MG Enoxaparin Sodium 30 mg DAILY SC 12/24/24 10:00 12/24/24 10:10 30 MG Nitroglycerin 0.4 mg Q5MINP PRN SL 12/23/24 10:45 Morphine Sulfate 2 mg Q30M PRN IV 12/23/24 10:45 Hydromorphone HCl 1 mg Q3HP PRN IV 12/23/24 14:45 Ceftriaxone Sodium 50 ml @ 100 mls/hr DAILY@09 IV 12/24/24 09:00 12/24/24 09:03 100 MLS/HR Phenylephrine HCl 250 ml @ 30 mls/hr Q8H20M IV 12/24/24 02:30 12/24/24 10:28 30 MLS/HR Examination: GENERAL:Normal, HEENT:Normal, NECK:Normal, LUNGS:Normal, CVS:Normal, ABDOMEN:Normal, MSK:Normal, MSK:Abnormal (right hip dressing), SKIN:Normal, NEURO:Normal, :Normal laboratory and microbiology Laboratory Tests 12/24/24 02:46 Test 12/24/24 02:46 Range/Units Serum Glucose 134 H 74-106 mg/dL Microbiology Date/Time Source Procedure Growth Status 12/23/24 09:49 Hip Right Anaerobic Culture - Preliminary Resulted 12/23/24 09:49 Hip Right Aerobic Culture - Preliminary Resulted Problem List/Assessment/Plan Problem List/Assessment/Plan * Urinary tract infection with ? septic shock: iv pressors, cultures, iv antibiotics * Osteoporosis. * Hyperlipidemia. * History of breast cancer. * anemia: transfuse * Status post right hip arthroplasty for which the patient will be placed on pain medications and receive physical therapy. Plan discussed with: Patient My Orders My Orders Orders - VANESA TURNER MD Procedure Category Date Status Time Hydromorphone PHA 12/23/24 In Process Injection (Dilaudid 14:45 Urinalysis LAB 12/23/24 Logged 22:00 Urine Bacterial KATHLEEN 12/23/24 In Process Culture 14:31 Ceftriaxone 1gm/50ml PHA 12/24/24 In Process (Rocephin) 09:00 Obtain Consent For: ORDERS 12/24/24 Verified 13:20 Packedcell-Noactive BBK 12/24/24 Verified Bleeding 13:20 Administer Blood RUSTY 12/24/24 Verified Products 13:20 Blood Culture KATHLEEN 12/24/24 Verified 13:20 Meropenem 1gm Ivpb X PHA 12/24/24 Verified ONE 13:30 Meropenem 1gm PHA 12/24/24 Verified Q8h(Gfr>50) 14:00 Complete Blood Count LAB 12/25/24 Verified 06:00 Comprehensive LAB 12/25/24 Verified Metabolic Panel 06:00 Chest Portable XY 12/24/24 Verified 13:20 Critical Care Time (mins): 41 (critical care time excluding procedures is 41 mins) Date of Service: Dec 24, 2024 Billing Provider: VANESA TURNER MD Common Visit Codes: [id number] CARE 30-74 MIN VANESA TURNER MD Dec 24, 2024 13:29
[2024-12-24] MEDS: HYDROcodone-ACET 5/325MG TAB PO PRN (14:19)
--- NOTE | 2024-12-24 14:34 | DVH ---
INDICATION: HTN TECHNIQUE: Frontal view of the chest. COMPARISON: None FINDINGS: The heart and mediastinal contours are grossly unremarkable. There is aortic atherosclerosis. There is no evidence of pleural disease. The lungs are clear. The bony structures of the chest are inta ct without fracture. IMPRESSION: 1. No evidence of acute disease.
[2024-12-24 17:10] LABS: Urine Amorphous Crystal FEW /hpf (None Seen); Urine Protein, UAD Negative (Negative)
[2024-12-24] MEDS: MEROPENEM 1GM IVPB 50 ML IV ONE (18:14)
[2024-12-24] MEDS: MEROPENEM 1GM IVPB 50 ML IV SCH (21:06)
[2024-12-25] VITALS (96 sets, daily range): BP systolic 74–137; BP diastolic 40–78; PULSE 52–90; RESP 9–23; TEMP 98.2–99.3; O2SAT 92–100
[2024-12-25] MEDS: HYDROmorphone HCL 2 MG/ML VL/or syr IV PRN (02:13)
[2024-12-25 03:51] LABS: Hematocrit 28.4 % (36.0-46.0); Hemoglobin 9.6 g/dL (12.2-16.2); Mean Corpuscular Hemoglobin 31.1 pg (28.0-32.0); Mean Corpuscular Volume 92.5 fL (80.0-100.0)
[2024-12-25 04:10] LABS: Alanine Aminotransferase 25 U/L (7-40); Alkaline Phosphatase 50 U/L (46-116); Anion Gap 9 (5-15); BUN/Creatinine Ratio 14.4 (10.0-20.0); Blood Urea Nitrogen 13 mg/dL (9-23); Calcium 8.7 mg/dL (8.7-10.4); Carbon Dioxide 24 mmol/L (20-31); Potassium 4.7 mmol/L (3.5-5.1)
[2024-12-25 04:36] LABS: Albumin 3.0 g/dL (3.2-4.8); Bilirubin, Total 0.2 mg/dL (0.2-1.0); Chloride 113 mmol/L (98-107); Glucose 72 mg/dL (74-106); Sodium 146 mmol/L (136-145); Total Protein 4.9 g/dL (5.7-8.2)
[2024-12-25 05:01] LABS: Total Cells Counted 100.0 (100)
--- NOTE | 2024-12-25 07:31 | DVHPN2 ---
Progress Note Date Seen: Dec 25, 2024 Medical Necessity Reason Pt with a Central, PICC or Fol: Yes The following are medically ne: Rose Catheter Reason for rose catheter: Strict I&O Subjective Patient reports: Feels worse (Patient is now reporting increased pain in the hip as expected but does feel better after the blood transfusion) Objective vital signs Vital Sign Date Time Temp Pulse Resp B/P (MAP) Pulse Ox O2 Delivery O2 Flow Rate FiO2 12/25/24 06:45 98.4 56 10 108/57 (74) 97 209.1 12/25/24 06:00 Room Air* 0 21 Total Intake and Output 12/24/24 12/24/24 12/25/24 15:00 23:00 07:00 Intake Total 1885.00 ml 2215.00 ml 1423.75 ml Output Total 1825 ml 2400 ml Balance 1885.00 ml 390.00 ml -976.25 ml medications Current Medications Medications Dose Ordered Sig/Blue Route Start Time Stop Time Status Last Admin Dose Admin Multivitamins 1 tab DAILY PO 12/24/24 10:00 12/24/24 10:07 1 TAB Potassium Chloride 20 meq BID PO 12/23/24 22:00 12/24/24 21:06 20 MEQ Pravastatin Sodium 20 mg DAILY PO 12/24/24 10:00 12/24/24 10:09 20 MG Lactated Ringer's 1,000 ml @ 100 mls/hr Q10H IV 12/23/24 10:45 12/25/24 04:12 100 MLS/HR Acetaminophen 650 mg Q6HP PRN PO 12/23/24 10:45 12/24/24 10:10 650 MG Acetaminophen/ Hydrocodone Bitart 1 tab Q4HP PRN PO 12/23/24 10:45 12/25/24 06:26 1 TAB Ondansetron HCl 4 mg Q6HP PRN IV 12/23/24 10:45 Docusate Sodium 100 mg Q12HR PO 12/23/24 22:00 12/24/24 21:06 100 MG Enoxaparin Sodium 30 mg DAILY SC 12/24/24 10:00 12/24/24 10:10 30 MG Nitroglycerin 0.4 mg Q5MINP PRN SL 12/23/24 10:45 Morphine Sulfate 2 mg Q30M PRN IV 12/23/24 10:45 Hydromorphone HCl 1 mg Q3HP PRN IV 12/23/24 14:45 12/25/24 02:13 1 MG Phenylephrine HCl 250 ml @ 30 mls/hr Q8H20M IV 12/24/24 02:30 12/24/24 22:16 48.75 MLS/HR Meropenem 50 ml @ 17 mls/hr Q12HR IV 12/24/24 22:00 12/24/24 21:06 17 MLS/HR Examination: GENERAL:Normal, MSK:Abnormal laboratory and microbiology Laboratory Tests 12/25/24 02:16 Test 12/25/24 02:16 Range/Units Serum Glucose 72 L 74-106 mg/dL Microbiology Date/Time Source Procedure Growth Status 12/23/24 20:54 Voided Urine Urine Culture - Preliminary Resulted 12/23/24 20:15 Nose MRSA Screen - Final Complete Problem List/Assessment/Plan Problem List/Assessment/Plan 84 year old female who is s/p Revision of Right SIDRA POD 2 1. WBAT RLE 2. Pain control 3. continue with medical management for hypotension 4. can proceed with PT once medically stable 5. DVT ppx 6. plan will be to d/c rose cath once off vasopressors Plan discussed with: Patient Date of Service: Dec 25, 2024 Billing Provider: DA HOLLOWAY MD Common Visit Codes: NOT BILLABLE CC Plasma Assessment Blood Product Administration S: [id number] DEANN BENAVIDES NP Dec 25, 2024 07:31
--- NOTE | 2024-12-25 07:54 | ECG ---
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
--- NOTE | 2024-12-25 13:31 | DVHPN2 ---
Progress Note Date Seen: Dec 25, 2024 Medical Necessity Reason Pt with a Central, PICC or Fol: Yes The following are medically ne: Rose Catheter Reason for rose catheter: Strict I&O Subjective Patient reports: No new complaints Review of Systems: HEENT:Normal, CVS:Normal, RESPIRATORY:Normal, GI:Normal, :Normal, MSK:Normal, NEURO:Normal Objective vital signs Vital Sign Date Time Temp Pulse Resp B/P (MAP) Pulse Ox O2 Delivery O2 Flow Rate FiO2 12/25/24 12:45 99.1 63 13 99/57 (71) 95 210.4 12/25/24 12:00 Room Air* 0 21 Total Intake and Output 12/24/24 12/24/24 12/25/24 15:00 23:00 07:00 Intake Total 1885.00 ml 2215.00 ml 1523.75 ml Output Total 1825 ml 2400 ml Balance 1885.00 ml 390.00 ml -876.25 ml medications Current Medications Medications Dose Ordered Sig/Blue Route Start Time Stop Time Status Last Admin Dose Admin Multivitamins 1 tab DAILY PO 12/24/24 10:00 12/25/24 09:25 1 TAB Potassium Chloride 20 meq BID PO 12/23/24 22:00 12/25/24 09:25 20 MEQ Pravastatin Sodium 20 mg DAILY PO 12/24/24 10:00 12/25/24 09:25 20 MG Lactated Ringer's 1,000 ml @ 100 mls/hr Q10H IV 12/23/24 10:45 12/25/24 04:12 100 MLS/HR Acetaminophen 650 mg Q6HP PRN PO 12/23/24 10:45 12/24/24 10:10 650 MG Acetaminophen/ Hydrocodone Bitart 1 tab Q4HP PRN PO 12/23/24 10:45 12/25/24 10:49 1 TAB Ondansetron HCl 4 mg Q6HP PRN IV 12/23/24 10:45 Docusate Sodium 100 mg Q12HR PO 12/23/24 22:00 12/25/24 09:25 100 MG Enoxaparin Sodium 30 mg DAILY SC 12/24/24 10:00 12/25/24 09:26 30 MG Nitroglycerin 0.4 mg Q5MINP PRN SL 12/23/24 10:45 Morphine Sulfate 2 mg Q30M PRN IV 12/23/24 10:45 Hydromorphone HCl 1 mg Q3HP PRN IV 12/23/24 14:45 12/25/24 02:13 1 MG Phenylephrine HCl 250 ml @ 30 mls/hr Q8H20M IV 12/24/24 02:30 12/25/24 09:50 11.25 MLS/HR Meropenem 50 ml @ 17 mls/hr Q12HR IV 12/24/24 22:00 12/25/24 09:23 17 MLS/HR Examination: GENERAL:Normal, HEENT:Normal, NECK:Normal, LUNGS:Normal, CVS:Normal, ABDOMEN:Normal, MSK:Normal, MSK:Abnormal (RIGHT HIP DRESSING), SKIN:Normal, NEURO:Normal, :Normal laboratory and microbiology Laboratory Tests 12/25/24 02:16 Test 12/25/24 02:16 Range/Units Serum Glucose 72 L 74-106 mg/dL Microbiology Date/Time Source Procedure Growth Status 12/23/24 20:54 Voided Urine Urine Culture - Preliminary Resulted 12/23/24 20:15 Nose MRSA Screen - Final Complete Problem List/Assessment/Plan Problem List/Assessment/Plan * Urinary tract infection with ? septic shock: iv pressors, cultures, iv antibiotics * Osteoporosis. * Hyperlipidemia. * History of breast cancer. * anemia: transfuse * CLL * Status post right hip arthroplasty for which the patient will be placed on pain medications and receive physical therapy. Plan discussed with: Patient Dietary Evaluation Review Comments: 1. Skin score 14, incision wound per RD doc, no dietary intervention at present. 2. Encourage and monitor PO intakes 3. Offer Ensure HP 240ml oral BID if PO intake<50% Expected Outcomes/Goals: healed incision wounds, gradual wt gain Critical Care Time (mins): 41 (CRITICAL CARE TIME EXCLUDING PROCEDURES IS 41 MINS) Date of Service: Dec 25, 2024 Billing Provider: VANESA TURNER MD Common Visit Codes: [id number] CARE 30-74 MIN CC Plasma Assessment Blood Product Administration S: [id number] VANESA TURNER MD Dec 25, 2024 13:31
[2024-12-26] VITALS (42 sets, daily range): BP systolic 104–167; BP diastolic 56–88; PULSE 59–91; RESP 9–91; TEMP 97.6–98.6; O2SAT 17–99
[2024-12-26 03:28] LABS: Hematocrit 32.5 % (36.0-46.0); Hemoglobin 10.9 g/dL (12.2-16.2); Mean Corpuscular Hemoglobin 31.3 pg (28.0-32.0); Mean Corpuscular Volume 93.9 fL (80.0-100.0)
[2024-12-26 03:38] LABS: Potassium 4.5 mmol/L (3.5-5.1); Sodium 142 mmol/L (136-145)
[2024-12-26 03:39] LABS: Anion Gap 5 (5-15); Carbon Dioxide 25 mmol/L (20-31)
[2024-12-26 03:40] LABS: Calcium 9.2 mg/dL (8.7-10.4)
[2024-12-26 03:44] LABS: BUN/Creatinine Ratio 15.9 (10.0-20.0); Blood Urea Nitrogen 11 mg/dL (9-23); Glucose 82 mg/dL (74-106)
[2024-12-26 03:57] LABS: Chloride 112 mmol/L (98-107)
[2024-12-26 04:48] LABS: Total Cells Counted 100.0 (100)
--- NOTE | 2024-12-26 05:52 | DVH ---
CHEST RADIOGRAPH Indication: HTN Technique: Single frontal view of the chest was obtained Comparison: XY CHEST PORTABLE on DOS: 12/24/24 FINDINGS: Lines and Tubes: None Lungs: No focal consolidation. Pleura: No effusion. No pneumothorax. Cardiomediastinal contours: Unremarkable Bones: No acute osseous abnormality. Old left humeral head fracture. IMPRESSION: 1. No acute cardiopulmonary disease.
--- NOTE | 2024-12-26 07:34 | DVHPN2 ---
Progress Note Date Seen: Dec 26, 2024 Medical Necessity Reason Pt with a Central, PICC or Fol: Yes The following are medically ne: Rose Catheter Reason for rose catheter: Strict I&O Subjective Patient reports: Feels worse (patient reports she is very sore in the right thigh as expected and has concerns with lack of BM) Objective vital signs Vital Sign Date Time Temp Pulse Resp B/P (MAP) Pulse Ox O2 Delivery O2 Flow Rate FiO2 12/26/24 06:45 98.1 81 15 116/80 (92) 97 98.1 12/26/24 06:00 Room Air* 0 21 Total Intake and Output 12/25/24 12/25/24 12/26/24 15:00 23:00 07:00 Intake Total 1660.00 ml 1645.00 ml 1200 ml Output Total 1350 ml 2000 ml Balance 1660.00 ml 295.00 ml -800 ml medications Current Medications Medications Dose Ordered Sig/Blue Route Start Time Stop Time Status Last Admin Dose Admin Multivitamins 1 tab DAILY PO 12/24/24 10:00 12/25/24 09:25 1 TAB Potassium Chloride 20 meq BID PO 12/23/24 22:00 12/25/24 20:14 20 MEQ Pravastatin Sodium 20 mg DAILY PO 12/24/24 10:00 12/25/24 09:25 20 MG Lactated Ringer's 1,000 ml @ 100 mls/hr Q10H IV 12/23/24 10:45 12/25/24 22:55 100 MLS/HR Acetaminophen 650 mg Q6HP PRN PO 12/23/24 10:45 12/24/24 10:10 650 MG Acetaminophen/ Hydrocodone Bitart 1 tab Q4HP PRN PO 12/23/24 10:45 12/25/24 20:14 1 TAB Ondansetron HCl 4 mg Q6HP PRN IV 12/23/24 10:45 Docusate Sodium 100 mg Q12HR PO 12/23/24 22:00 12/25/24 20:15 100 MG Enoxaparin Sodium 30 mg DAILY SC 12/24/24 10:00 12/25/24 09:26 30 MG Nitroglycerin 0.4 mg Q5MINP PRN SL 12/23/24 10:45 Morphine Sulfate 2 mg Q30M PRN IV 12/23/24 10:45 Hydromorphone HCl 1 mg Q3HP PRN IV 12/23/24 14:45 12/26/24 05:35 1 MG Phenylephrine HCl 250 ml @ 30 mls/hr Q8H20M IV 12/24/24 02:30 12/25/24 09:50 11.25 MLS/HR Meropenem 50 ml @ 17 mls/hr Q12HR IV 12/24/24 22:00 12/25/24 20:15 17 MLS/HR Examination: GENERAL:Normal, MSK:Abnormal laboratory and microbiology Laboratory Tests 12/26/24 02:39 Test 12/26/24 02:39 Range/Units Serum Glucose 82 74-106 mg/dL Microbiology Date/Time Source Procedure Growth Status 12/24/24 13:40 Blood Blood Culture - Preliminary NO GROWTH AFTER 24 HOURS OF INCUBATION. Resulted 12/23/24 20:54 Voided Urine Urine Culture - Preliminary Resulted 12/23/24 20:15 Nose MRSA Screen - Final Complete Problem List/Assessment/Plan Problem List/Assessment/Plan 84 year old female who is s/p Revision of Right SIDRA POD 3 1. WBAT RLE 2. Pain control 3. continue with medical management 4. can proceed with PT once medically stable 5. DVT ppx 6. plan will be to d/c rose cath once off vasopressors 7. patient is aware of discharge criteria from orthopedic standpoint will be d/c of rose and ambulating with PT Plan discussed with: Patient Dietary Evaluation Review Comments: 1. Skin score 14, incision wound per RD doc, no dietary intervention at present. 2. Encourage and monitor PO intakes 3. Offer Ensure HP 240ml oral BID if PO intake<50% Expected Outcomes/Goals: healed incision wounds, gradual wt gain Date of Service: Dec 26, 2024 Billing Provider: DA HOLLOWAY MD Common Visit Codes: NOT BILLABLE CC Plasma Assessment Blood Product Administration S: [id number] DEANN BENAVIDES NP Dec 26, 2024 07:34
--- NOTE | 2024-12-26 08:02 | ECG ---
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
--- NOTE | 2024-12-26 10:54 | DVHPN2 ---
Progress Note Date Seen: Dec 26, 2024 Medical Necessity Reason Pt with a Central, PICC or Fol: Yes The following are medically ne: Rose Catheter Reason for rose catheter: Strict I&O Subjective Patient reports: No new complaints Review of Systems: HEENT:Normal, CVS:Normal, RESPIRATORY:Normal, GI:Normal, :Normal, MSK:Normal, NEURO:Normal Objective vital signs Vital Sign Date Time Temp Pulse Resp B/P (MAP) Pulse Ox O2 Delivery O2 Flow Rate FiO2 12/26/24 08:30 98.1 75 16 127/74 (91) 97 208.6 12/26/24 06:00 Room Air* 0 21 Total Intake and Output 12/25/24 12/25/24 12/26/24 15:00 23:00 07:00 Intake Total 1660.00 ml 1645.00 ml 1200 ml Output Total 1350 ml 2000 ml Balance 1660.00 ml 295.00 ml -800 ml medications Current Medications Medications Dose Ordered Sig/Blue Route Start Time Stop Time Status Last Admin Dose Admin Multivitamins 1 tab DAILY PO 12/24/24 10:00 12/26/24 09:49 1 TAB Potassium Chloride 20 meq BID PO 12/23/24 22:00 12/26/24 09:50 20 MEQ Pravastatin Sodium 20 mg DAILY PO 12/24/24 10:00 12/26/24 09:49 20 MG Lactated Ringer's 1,000 ml @ 100 mls/hr Q10H IV 12/23/24 10:45 12/25/24 22:55 100 MLS/HR Acetaminophen 650 mg Q6HP PRN PO 12/23/24 10:45 12/24/24 10:10 650 MG Acetaminophen/ Hydrocodone Bitart 1 tab Q4HP PRN PO 12/23/24 10:45 12/26/24 08:19 1 TAB Ondansetron HCl 4 mg Q6HP PRN IV 12/23/24 10:45 Docusate Sodium 100 mg Q12HR PO 12/23/24 22:00 12/26/24 09:50 100 MG Enoxaparin Sodium 30 mg DAILY SC 12/24/24 10:00 12/26/24 09:48 30 MG Nitroglycerin 0.4 mg Q5MINP PRN SL 12/23/24 10:45 Morphine Sulfate 2 mg Q30M PRN IV 12/23/24 10:45 Hydromorphone HCl 1 mg Q3HP PRN IV 12/23/24 14:45 12/26/24 05:35 1 MG Phenylephrine HCl 250 ml @ 30 mls/hr Q8H20M IV 12/24/24 02:30 12/25/24 09:50 11.25 MLS/HR Meropenem 50 ml @ 17 mls/hr Q12HR IV 12/24/24 22:00 12/26/24 09:51 17 MLS/HR Examination: GENERAL:Normal, HEENT:Normal, NECK:Normal, LUNGS:Normal, CVS:Normal, ABDOMEN:Normal, MSK:Normal, MSK:Abnormal (RIGHT HIP DRESSING), SKIN:Normal, NEURO:Normal, :Normal laboratory and microbiology Laboratory Tests 12/26/24 02:39 Test 12/26/24 02:39 Range/Units Serum Glucose 82 74-106 mg/dL Microbiology Date/Time Source Procedure Growth Status 12/24/24 13:40 Blood Blood Culture - Preliminary NO GROWTH AFTER 24 HOURS OF INCUBATION. Resulted 12/23/24 20:54 Voided Urine Urine Culture - Final Complete 12/23/24 20:15 Nose MRSA Screen - Final Complete Problem List/Assessment/Plan Problem List/Assessment/Plan * Urinary tract infection with ? septic shock: off iv pressors, cultures, iv antibiotics * Osteoporosis. * Hyperlipidemia. * History of breast cancer. * anemia: transfuse * CLL * Status post right hip arthroplasty for which the patient will be placed on pain medications and receive physical therapy. Plan discussed with: Patient My Orders My Orders Orders - VANESA TURNER MD Procedure Category Date Status Time Chest Portable XY 12/26/24 Resulted 06:00 Transfer Orders XFER 12/26/24 Verified 10:50 Basic Metabolic Panel LAB 12/27/24 Verified 06:00 Complete Blood Count LAB 12/27/24 Verified 06:00 Polyethylene Glycol PHA 12/26/24 Verified 17g Powder (Miralax 11:00 Polyethylene Glycol PHA 12/26/24 Verified 17g Powder (Miralax 11:00 Lactulose Oral PHA 12/26/24 Verified 11:00 Dietary Evaluation Review Comments: 1. Skin score 14, incision wound per RD doc, no dietary intervention at present. 2. Encourage and monitor PO intakes 3. Offer Ensure HP 240ml oral BID if PO intake<50% Expected Outcomes/Goals: healed incision wounds, gradual wt gain Critical Care Time (mins): 39 (critical care time 39 mins) Date of Service: Dec 26, 2024 Billing Provider: VANESA TURNER MD Common Visit Codes: [id number] CARE 30-74 MIN CC Plasma Assessment Blood Product Administration S: [id number] VANESA TURNER MD Dec 26, 2024 10:54
[2024-12-26] MEDS ORDERED: POLYETHYLENE GLYCOL 17 GM PWDR PO PRN (11:00)
[2024-12-26] MEDS: LACTULOSE 20Gm/30ML SOLN PO ONE (14:29)
[2024-12-26] MEDS: POLYETHYLENE GLYCOL 17 GM PWDR PO ONE (14:29)
[2024-12-27] VITALS (9 sets, daily range): BP systolic 120–144; BP diastolic 73–93; PULSE 70–97; RESP 16–20; TEMP 97.7–98.3; O2SAT 94–97
[2024-12-27 06:41] LABS: Hematocrit 30.7 % (36.0-46.0); Hemoglobin 10.2 g/dL (12.2-16.2); Mean Corpuscular Hemoglobin 30.4 pg (28.0-32.0); Mean Corpuscular Volume 91.9 fL (80.0-100.0)
[2024-12-27 06:46] LABS: Anion Gap 6 (5-15); Carbon Dioxide 27 mmol/L (20-31); Potassium 4.0 mmol/L (3.5-5.1); Sodium 142 mmol/L (136-145)
[2024-12-27 06:47] LABS: Calcium 8.8 mg/dL (8.7-10.4)
[2024-12-27 06:52] LABS: BUN/Creatinine Ratio 18.8 (10.0-20.0); Blood Urea Nitrogen 13 mg/dL (9-23); Glucose 93 mg/dL (74-106)
[2024-12-27 06:55] LABS: Chloride 109 mmol/L (98-107)
[2024-12-27 08:08] LABS: Total Cells Counted 100.0 (100)
[2024-12-27] MEDS: ENOXAPARIN SOD 40 MG/0.4 ML SYRINGE SC SCH (10:36)
--- NOTE | 2024-12-27 11:28 | DVHPN2 ---
Progress Note Date Seen: Dec 27, 2024 Medical Necessity Reason Pt with a Central, PICC or Fol: Yes The following are medically ne: Rose Catheter Reason for rose catheter: Strict I&O Subjective Patient reports: No new complaints Objective vital signs Vital Sign Date Time Temp Pulse Resp B/P (MAP) Pulse Ox O2 Delivery O2 Flow Rate FiO2 12/27/24 08:42 98.3 91 18 133/73 (93) 96 98.3 12/26/24 20:00 Room Air* 0 21 Total Intake and Output 12/26/24 12/26/24 12/27/24 15:00 23:00 07:00 Intake Total 350 ml 750 ml 720 ml Output Total 500 ml 1500 ml Balance 350 ml 250 ml -780 ml medications Current Medications Medications Dose Ordered Sig/Blue Route Start Time Stop Time Status Last Admin Dose Admin Multivitamins 1 tab DAILY PO 12/24/24 10:00 12/27/24 10:38 1 TAB Pravastatin Sodium 20 mg DAILY PO 12/24/24 10:00 12/27/24 10:36 20 MG Acetaminophen 650 mg Q6HP PRN PO 12/23/24 10:45 12/27/24 10:37 650 MG Acetaminophen/ Hydrocodone Bitart 1 tab Q4HP PRN PO 12/23/24 10:45 12/26/24 14:31 1 TAB Ondansetron HCl 4 mg Q6HP PRN IV 12/23/24 10:45 Docusate Sodium 100 mg Q12HR PO 12/23/24 22:00 12/27/24 10:37 100 MG Nitroglycerin 0.4 mg Q5MINP PRN SL 12/23/24 10:45 Morphine Sulfate 2 mg Q30M PRN IV 12/23/24 10:45 Hydromorphone HCl 1 mg Q3HP PRN IV 12/23/24 14:45 12/27/24 05:39 1 MG Meropenem 50 ml @ 17 mls/hr Q12HR IV 12/24/24 22:00 12/27/24 10:30 17 MLS/HR Polyethylene Glycol 17 gm DAILYPRN PRN PO 12/26/24 11:00 Enoxaparin Sodium 40 mg DAILY SC 12/27/24 10:00 12/27/24 10:36 40 MG Clonidine HCl 0.1 mg Q4HP PRN PO 12/27/24 01:45 Cancel Examination: GENERAL:Normal, MSK:Abnormal laboratory and microbiology Laboratory Tests 12/27/24 06:09 Test 12/27/24 06:09 Range/Units Serum Glucose 93 74-106 mg/dL Microbiology Date/Time Source Procedure Growth Status 12/24/24 13:40 Blood Blood Culture - Preliminary NO GROWTH AFTER 48 HOURS OF INCUBATION. Resulted 12/23/24 20:54 Voided Urine Urine Culture - Final Complete 12/23/24 20:15 Nose MRSA Screen - Final Complete Problem List/Assessment/Plan Problem List/Assessment/Plan 84 year old female who is s/p Revision of Right SIDRA POD 4 1. WBAT RLE 2. Pain control 3. rec d/c rose cath 4. DVT ppx 5. follow up in 2 weeks at [facility] ortho clinic as scheduled 6. prescriptions for postop pain medication and DVT ppx sent via [facility] ortho clinic EMR by [facility] ORTHO BRIA MANN to preferred pharmacy on 12/24/2024 7. patient is clear for discharge home from orthopedic standpoint with the following discharge recommendations: POSTOPERATIVE Posterior Total Hip INSTRUCTIONS Activity: 1. You can bear as much weight as you tolerate on your hip unless specifically instructed otherwise. You may use the walking aid which you were discharged with and switch to a cane whenever you feel comfortable doing so. You should use an assistive device until you can walk comfortably without it. Keep in mind that every patient moves at their own speed of recovery so take your time. 2. A physical therapist will visit you at home. 3. Although guarantees against a dislocation do not exist, the hip was noted to be sufficiently stable in surgery. Below are motions that you should dischargenot do for 4-6 weeks, depending on the surgical approach used. If there are questions, please call the office. a. Bend forward past 90 degrees b. Sit on a regular low chair, couch, car seat etc... c. Cross your legs d. Use a regular low toilet seat. e. Sleep on your stomach or on either side. 3. High impact activity such as jumping, aerobics, tennis, and skiing are not permitted during the first 3 months after surgery. These activities can contribute to accelerated wear and should be done with caution after this time. Discuss this with your surgeon if you have questions. 4. Although a bath or whirlpool is NOT permitted during the first 2-3 weeks, you may shower as soon as you get home from the hospital provided you are able to keep your bandage clean and dry and there is no wound drainage. If you are unable to place a secured covering over your bandage bed bath/sponge bath may likely be the more appropriate option. 5. Swimming is not permitted until the wound is healed, which typically occurs approximately 3-4 weeks after surgery. Wound Management: If the wound is draining please change the gauze pad on the wound until it stops. If drainage persists past 10 days please notify our office. If there is a sticky gel dressing over your wound, you may leave this in place for as long as it is clean and dry. If it becomes loose or causes skin irritation, it is OK to remove it and place clean gauze over your wound. 1. You might notice some bruising around the surgical site, this is normal. 2. Check your temperature on a daily basis. Please note that a low-grade temp below 101 is not uncommon after surgery especially during the first 3 days. Notify the office if your temperature spikes above 101.5 after the 3rd post- operative date. 3. Many patients experience significant swelling in the thigh, this may extend below the knee and sometimes to the ankle. Swelling increases during the first week and subsides during the following week. 4. Provided you have been on a blood thinner since surgery and have been up and about at least three times per day, the risk of a blood clot is low and this swelling is an expected part of recovery. It will largely or completely resolve by your first post-operative visit. 5. Edlmis, if present, will be removed at 2 weeks during initial post-op visit. Medications: 1. You will be discharged with pain medication, Aspirin as a blood thinner and sometimes an anti-inflammatory medication such as Celebrex or Mobic might be prescribed. Please follow the instructions regarding these medicines as provided by your nurse at the hospital. 2. Narcotic pain medication has side effects, including constipation. Please ensure you continue to take stool softeners (Colace, Senna) while taking your pain medication to help protect against constipation. Getting up and moving around at least a few times per day helps with this also. 3. Lovenox 40 Sq x 12 days followed by one regular strength 325 mg coated aspirin daily for 4 weeks after surgery. Then, take one baby aspirin, 81 mg daily for 6 weeks more. A major, yet preventable, complication of Orthopaedic Surgery is a blood clot (DVT). It is important not to miss any doses of this important medication. 4. You should restart all of your prescription medications once discharged unless specifically instructed otherwise. 5. Herbal supplements may be restarted 2 weeks after surgery. Miscellaneous issues: 1. Driving is not permitted within the first 2 weeks. 2. Your first postoperative visit will take place 2weeks after discharge. Please call the office to arrange this appointment. 3. Antibiotic preventative treatment is required before dental or other invasive procedures. Please ask your surgeon about this at your first postoperative visit. Your hip replacement contains metal which may activate metal detectors. You may wish to carry a letter from your surgeon to communicate this to security personnel. If you experience chest pain, shortness of breath or severe painful calf swelling, go to the nearest emergency room to be evaluated. Please call our office once your situation is stabilized. Plan discussed with: Patient Dietary Evaluation Review Comments: 1. Skin score 14, incision wound per RD doc, no dietary intervention at present. 2. Encourage and monitor PO intakes 3. Offer Ensure HP 240ml oral BID if PO intake<50% Expected Outcomes/Goals: healed incision wounds, gradual wt gain Date of Service: Dec 27, 2024 Billing Provider: DA HOLLOWAY MD Common Visit Codes: NOT BILLABLE CC Plasma Assessment Blood Product Administration S: [id number] DEANN BENAVIDES NP Dec 27, 2024 11:28
--- NOTE | 2024-12-27 11:49 | DVHPN2 ---
Subjective PATIENT REPORTING HAVING SUBSTERNAL CHEST PAIN THAT RADIATED TO HER BACK THIS A.M.. Reviewed: Care Plan, H&P, Labs, Medications, Previous Orders Changes from previous H/P or p: No Changes General: Per HPI Objective Vitals Vital Signs Date Time Temp Pulse Resp B/P (MAP) Pulse Ox O2 Delivery O2 Flow Rate FiO2 12/27/24 08:42 98.3 91 18 133/73 (93) 96 98.3 12/26/24 20:00 Room Air* 0 21 Intake/Output Intake and Output 12/27/24 07:00 Intake Total 1820 ml Output Total 2000 ml Balance -180 ml Intake Oral 1470 ml IV Total 350 ml Output Urine Total 2000 ml General Appearance: Alert, Oriented X3, Cooperative, No acute distress HEENT: Atraumatic, PERRLA Lungs: Clear to auscultation, Normal air movement Cardiovascular: Normal S1, Normal S2 Abdomen: Normal bowel sounds, Soft, No tenderness, No hepatospenomegaly, No masses Genitourinary: No Apparent Abnormalities Musculoskeletal: Normal sensory function, Normal motor function Extremities: No clubbing, No cyanosis Neuro: Normal gait, Normal speech Skin: Dry, Intact Psych/Mental Status: Mental status NL, Mood NL Medications Current Medications Medications Dose Ordered Sig/Blue Route Start Time Stop Time Status Last Admin Dose Admin Multivitamins 1 tab DAILY PO 12/24/24 10:00 12/27/24 10:38 1 TAB Pravastatin Sodium 20 mg DAILY PO 12/24/24 10:00 12/27/24 10:36 20 MG Acetaminophen 650 mg Q6HP PRN PO 12/23/24 10:45 12/27/24 10:37 650 MG Acetaminophen/ Hydrocodone Bitart 1 tab Q4HP PRN PO 12/23/24 10:45 12/26/24 14:31 1 TAB Ondansetron HCl 4 mg Q6HP PRN IV 12/23/24 10:45 Docusate Sodium 100 mg Q12HR PO 12/23/24 22:00 12/27/24 10:37 100 MG Nitroglycerin 0.4 mg Q5MINP PRN SL 12/23/24 10:45 Morphine Sulfate 2 mg Q30M PRN IV 12/23/24 10:45 Hydromorphone HCl 1 mg Q3HP PRN IV 12/23/24 14:45 12/27/24 05:39 1 MG Meropenem 50 ml @ 17 mls/hr Q12HR IV 12/24/24 22:00 12/27/24 10:30 17 MLS/HR Polyethylene Glycol 17 gm DAILYPRN PRN PO 12/26/24 11:00 Enoxaparin Sodium 40 mg DAILY SC 12/27/24 10:00 12/27/24 10:36 40 MG Clonidine HCl 0.1 mg Q4HP PRN PO 12/27/24 01:45 Cancel Laboratory Results Laboratory Tests 12/27/24 06:09 Chemistry Test 12/27/24 06:09 Calcium Level 8.8 mg/dL (8.7-10.4) Urinalysis Test 12/19/24 11:35 12/24/24 15:30 Urine WBC Clumps Present /hpf (None Seen) Urine Mucus Few (None Seen) Urine Yeast (Budding) Moderate /hpf (None Seen) Urine Color Colorless (Yellow) Urine Clarity Clear (Clear) Urine pH 6.5 (5.0-9.0) Urine Specific [place] 1.006 (1.001-1.035) Urine Protein Negative (Negative) Urine Ketones Negative (Negative) Urine Blood Negative /uL (Negative) Urine Nitrite Negative (Negative) Urine Bilirubin Negative (Negative) Urine Urobilinogen Normal mg/dL (Negative) Urine Leukocyte Esterase 3+ /uL (Negative) Urine RBC 2 /hpf (0 - 4) Urine Microscopic WBC 16 /HPF (0-5) H Urine Squamous Epithelial Cells Few /hpf (<5) Urine Amorphous Crystals Few /hpf (None Seen) Urine Bacteria Few /hpf (None Seen) H Urine Glucose Normal mg/dL (Normal) Microbiology Microbiology Date/Time Source Procedure Growth Status 12/24/24 13:40 Blood Blood Culture - Preliminary NO GROWTH AFTER 48 HOURS OF INCUBATION. Resulted 12/23/24 20:54 Voided Urine Urine Culture - Final Complete 12/23/24 20:15 Nose MRSA Screen - Final Complete Labs and/or images reviewed: Labs reviewed by me, Image(s) reviewed by me Assessment/Plan Assessment/Plan Impression: -status post right hip arthroplasty -septic shock -complicated cystitis -dyslipidemia -CLL -anemia with blood transfusion -chest pain, rule out ACS Plan: -patient off vasopressors, currently on telemetry floor. Patient has minimal physical activity, only weight-bearing without walking today. Reported chest pain this a.m. that has resolved with IV Dilaudid. -continue IV antibiotic therapy with Meropenem -aggressive physical therapy -continue bowel regimen: Add MiraLax -EKG, check troponin -pain management: Increase [place] to two tablets of 5/325 q.6 hours. Total time spent with patient discussing and formulating plan of care: 35 minutes. This medical document was created using an electronic medical record system with M[employer] dictation system. Although this document has been carefully reviewed, there may still be some phonetic and typographical errors. These areas are purely typographical due to imperfections of the software programs, and do not reflect any compromise in the patient's medical care. Plan discussed with: Patient, Other (RN) My Orders Orders - PABLO GRUBER NP Procedure Category Date Status Time Hydromorphone PHA 12/27/24 Verified Injection (Dilaudid 11:45 Polyethylene Glycol PHA 12/27/24 Verified 17g Powder (Miralax 11:45 Electrocardigram EKG 12/27/24 Verified 11:41 Troponin-I Hs LAB 12/27/24 Verified 11:41 Oxycodone W/ Acet PHA 12/27/24 Verified 5/325mg Tab (Percocet 11:45 Date of Service: Dec 27, 2024 Billing Provider: PABLO GRUBER NP Common Visit Codes: [id number] INP/OBS CARE(HIGH) PABLO GRUBER NP Dec 27, 2024 11:49
[2024-12-27] MEDS: OXYCODONE W/ ACETAMINOPHEN 5/325MG TABLET PO PRN (12:22)
[2024-12-27] MEDS: POLYETHYLENE GLYCOL 17 GM PWDR PO SCH (12:24)
[2024-12-27] MEDS: HYDROmorphone HCL 2 MG/ML VL/or syr IV PRN (21:55)
[2024-12-28] VITALS (9 sets, daily range): BP systolic 111–133; BP diastolic 64–77; PULSE 80–96; RESP 16–18; TEMP 98–98.9; O2SAT 92–96
--- NOTE | 2024-12-28 09:35 | ECG ---
[facility] Test Date: 2024-12-27 Test Time: 12:38:06 Pat Name: ERIKA MUNOZ Department: Respiratoy Room: 0222T A Gender: F Cvicu Rn: CRISTI. : 1940 Requested By: PABLO GRUBER Order Number: [id number] Reading MD: Yehuda Vicente Measurements Intervals [place] Rate: 84 P: 48 TX: 144 QRS: -23 QRSD: 91 T: 13 QT: 340 QTc: 402 Interpretive Statements Sinus rhythm Borderline left axis deviation Electronically Signed On 12-28-2024 17:36:20 PDT by Yehuda Vicente Please click the below link to view image of tracing.
--- NOTE | 2024-12-28 18:00 | DVHPN2 ---
Subjective looks rested/no cough/no dyspnea/urine in [place] is clera./had one bm yesterday Reviewed: Care Plan, H&P, Labs, Medications, Previous Orders Changes from previous H/P or p: No Changes General: Per HPI Objective Vitals Vital Signs Date Time Temp Pulse Resp B/P (MAP) Pulse Ox O2 Delivery O2 Flow Rate FiO2 12/28/24 13:00 98.9 86 17 127/76 (93) 93 98.9 12/28/24 08:15 Room Air* 0 21 Intake/Output Intake and Output 12/28/24 07:00 Intake Total 850 ml Output Total 2700 ml Balance -1850 ml Intake Oral 800 ml IV Total 50 ml Output Urine Total 2700 ml General Appearance: Alert, Oriented X3, Cooperative, No acute distress HEENT: Atraumatic, PERRLA Lungs: Clear to auscultation, Normal air movement Cardiovascular: Normal S1, Normal S2 Abdomen: Normal bowel sounds, Soft, No tenderness, No hepatospenomegaly, No masses Genitourinary: No Apparent Abnormalities Musculoskeletal: Normal sensory function, Normal motor function Extremities: No clubbing, No cyanosis Neuro: Normal gait, Normal speech Skin: Dry, Intact Psych/Mental Status: Mental status NL, Mood NL Medications Current Medications Medications Dose Ordered Sig/Blue Route Start Time Stop Time Status Last Admin Dose Admin Multivitamins 1 tab DAILY PO 12/24/24 10:00 12/28/24 10:23 1 TAB Pravastatin Sodium 20 mg DAILY PO 12/24/24 10:00 12/28/24 10:22 20 MG Acetaminophen 650 mg Q6HP PRN PO 12/23/24 10:45 12/27/24 10:37 650 MG Ondansetron HCl 4 mg Q6HP PRN IV 12/23/24 10:45 Docusate Sodium 100 mg Q12HR PO 12/23/24 22:00 12/28/24 10:22 100 MG Nitroglycerin 0.4 mg Q5MINP PRN SL 12/23/24 10:45 Meropenem 50 ml @ 17 mls/hr Q12HR IV 12/24/24 22:00 12/28/24 10:14 17 MLS/HR Enoxaparin Sodium 40 mg DAILY SC 12/27/24 10:00 12/28/24 10:22 40 MG Clonidine HCl 0.1 mg Q4HP PRN PO 12/27/24 01:45 Cancel Hydromorphone HCl 1 mg Q6HP PRN IV 12/27/24 11:45 12/27/24 21:55 1 MG Polyethylene Glycol 17 gm DAILY PO 12/27/24 11:45 12/28/24 10:21 17 GM Oxycodone/ Acetaminophen 2 tab Q6HP PRN PO 12/27/24 11:45 12/28/24 10:37 2 TAB Laboratory Results Laboratory Tests 12/27/24 06:09 Urinalysis Test 12/19/24 11:35 12/24/24 15:30 Urine WBC Clumps Present /hpf (None Seen) Urine Mucus Few (None Seen) Urine Yeast (Budding) Moderate /hpf (None Seen) Urine Color Colorless (Yellow) Urine Clarity Clear (Clear) Urine pH 6.5 (5.0-9.0) Urine Specific [place] 1.006 (1.001-1.035) Urine Protein Negative (Negative) Urine Ketones Negative (Negative) Urine Blood Negative /uL (Negative) Urine Nitrite Negative (Negative) Urine Bilirubin Negative (Negative) Urine Urobilinogen Normal mg/dL (Negative) Urine Leukocyte Esterase 3+ /uL (Negative) Urine RBC 2 /hpf (0 - 4) Urine Microscopic WBC 16 /HPF (0-5) H Urine Squamous Epithelial Cells Few /hpf (<5) Urine Amorphous Crystals Few /hpf (None Seen) Urine Bacteria Few /hpf (None Seen) H Urine Glucose Normal mg/dL (Normal) Microbiology Microbiology Date/Time Source Procedure Growth Status 12/24/24 13:40 Blood Blood Culture - Preliminary NO GROWTH AFTER 72 HOURS OF INCUBATION. Resulted 12/23/24 20:54 Voided Urine Urine Culture - Final Complete 12/23/24 20:15 Nose MRSA Screen - Final Complete Labs and/or images reviewed: Labs reviewed by me, Image(s) reviewed by me Assessment/Plan Assessment/Plan sepsis secondary to uti- better s/p rt hip replacement cll stable dvt prophylaxis old left humeral fracture Plan discussed with: Patient Date of Service: Dec 28, 2024 Billing Provider: SEDRICK HARKINS MD Common Visit Codes: [id number] INP/OBS CARE(MOD) SEDRICK HARKINS MD Dec 28, 2024 18:00
[2024-12-29] VITALS (9 sets, daily range): BP systolic 125–135; BP diastolic 67–78; PULSE 77–90; RESP 17–20; TEMP 97.5–98.2; O2SAT 93–96
--- NOTE | 2024-12-29 16:21 | DVHPN2 ---
Subjective looks rested/no cough/no dyspnea/urine in [place] is clera./had one bm yesterday Reviewed: Care Plan, H&P, Labs, Medications, Previous Orders Changes from previous H/P or p: No Changes General: Per HPI Objective Vitals Vital Signs Date Time Temp Pulse Resp B/P (MAP) Pulse Ox O2 Delivery O2 Flow Rate FiO2 12/29/24 12:51 97.9 87 20 134/67 (89) 93 97.9 12/29/24 08:15 Room Air* 0 21 Intake/Output Intake and Output 12/29/24 07:00 Intake Total 1740 ml Output Total 2600 ml Balance -860 ml Intake Oral 1690 ml IV Total 50 ml Output Urine Total 2600 ml General Appearance: Alert, Oriented X3, Cooperative, No acute distress HEENT: Atraumatic, PERRLA Lungs: Clear to auscultation, Normal air movement Cardiovascular: Normal S1, Normal S2 Abdomen: Normal bowel sounds, Soft, No tenderness, No hepatospenomegaly, No masses Genitourinary: No Apparent Abnormalities Musculoskeletal: Normal sensory function, Normal motor function Extremities: No clubbing, No cyanosis Neuro: Normal gait, Normal speech Skin: Dry, Intact Psych/Mental Status: Mental status NL, Mood NL Medications Current Medications Medications Dose Ordered Sig/Blue Route Start Time Stop Time Status Last Admin Dose Admin Multivitamins 1 tab DAILY PO 12/24/24 10:00 12/29/24 10:19 1 TAB Pravastatin Sodium 20 mg DAILY PO 12/24/24 10:00 12/29/24 10:19 20 MG Acetaminophen 650 mg Q6HP PRN PO 12/23/24 10:45 12/27/24 10:37 650 MG Ondansetron HCl 4 mg Q6HP PRN IV 12/23/24 10:45 Docusate Sodium 100 mg Q12HR PO 12/23/24 22:00 12/29/24 10:19 100 MG Nitroglycerin 0.4 mg Q5MINP PRN SL 12/23/24 10:45 Meropenem 50 ml @ 17 mls/hr Q12HR IV 12/24/24 22:00 12/29/24 10:18 17 MLS/HR Enoxaparin Sodium 40 mg DAILY SC 12/27/24 10:00 12/29/24 10:19 40 MG Clonidine HCl 0.1 mg Q4HP PRN PO 12/27/24 01:45 Cancel Hydromorphone HCl 1 mg Q6HP PRN IV 12/27/24 11:45 12/28/24 20:57 1 MG Polyethylene Glycol 17 gm DAILY PO 12/27/24 11:45 12/29/24 10:19 17 GM Oxycodone/ Acetaminophen 2 tab Q6HP PRN PO 12/27/24 11:45 12/29/24 08:42 2 TAB Laboratory Results Laboratory Tests 12/27/24 06:09 Urinalysis Test 12/19/24 11:35 12/24/24 15:30 Urine WBC Clumps Present /hpf (None Seen) Urine Mucus Few (None Seen) Urine Yeast (Budding) Moderate /hpf (None Seen) Urine Color Colorless (Yellow) Urine Clarity Clear (Clear) Urine pH 6.5 (5.0-9.0) Urine Specific [place] 1.006 (1.001-1.035) Urine Protein Negative (Negative) Urine Ketones Negative (Negative) Urine Blood Negative /uL (Negative) Urine Nitrite Negative (Negative) Urine Bilirubin Negative (Negative) Urine Urobilinogen Normal mg/dL (Negative) Urine Leukocyte Esterase 3+ /uL (Negative) Urine RBC 2 /hpf (0 - 4) Urine Microscopic WBC 16 /HPF (0-5) H Urine Squamous Epithelial Cells Few /hpf (<5) Urine Amorphous Crystals Few /hpf (None Seen) Urine Bacteria Few /hpf (None Seen) H Urine Glucose Normal mg/dL (Normal) Microbiology Microbiology Date/Time Source Procedure Growth Status 12/24/24 13:40 Blood Blood Culture - Final NO GROWTH AFTER 5 DAYS OF INCUBATION. 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
[2024-12-30 01:10] VITALS: BP 122/71; PULSE 82; RESP 18; TEMP 98.2; O2SAT 96
[2024-12-30 04:51] VITALS: BP 120/74; PULSE 88; RESP 18; TEMP 99.2; O2SAT 95
[2024-12-30 06:56] LABS: Hematocrit 27.7 % (36.0-46.0); Hemoglobin 9.2 g/dL (12.2-16.2); Mean Corpuscular Hemoglobin 30.8 pg (28.0-32.0); Mean Corpuscular Volume 92.7 fL (80.0-100.0)
[2024-12-30 08:00] VITALS: PULSE 81; O2SAT 94
[2024-12-30 09:00] VITALS: BP 131/78; PULSE 89; RESP 16; TEMP 99.2; O2SAT 94
[2024-12-30 09:03] LABS: RBC Morphology Normal; Total Cells Counted 100.0 (100)
--- NOTE | 2024-12-30 10:40 | DVHDS2 ---
Discharge Summary Date of Admission Dec 23, 2024 at 10:35 Date of Discharge: Dec 30, 2024 Labs/Diagnostic Data: Laboratory Results Test 12/30/24 04:25 12/27/24 06:09 12/26/24 02:39 12/25/24 02:16 White Blood Count 18.5 10^3/uL (4.4-10.8) Red Blood Count 2.99 10^6/uL (4.0-5.20) Hemoglobin 9.2 g/dL (12.2-16.2) Hematocrit 27.7 % (36.0-46.0) Mean Corpuscular Volume 92.7 fL (80.0-100.0) Mean Corpuscular Hemoglobin 30.8 pg (28.0-32.0) Mean Corpuscular Hemoglobin Concent 33.2 g/dL (32.0-36.0) Red Cell Distribution Width 13.9 % (11.8-14.3) Platelet Count 287 10^3/uL (140-450) Mean Platelet Volume 8.5 fL (6.9-10.8) Neutrophils (%) (Auto) % (37.0-80.0) Lymphocytes (%) (Auto) % (10.0-50.0) Monocytes (%) (Auto) % (0.0-12.0) Basophils (%) (Auto) % (0.0-2.0) Neutrophils # (Auto) 10 ^3/uL (1.6-8.6) Lymphocytes # (Auto) 10 ^3/uL (0.4-5.4) Monocytes # (Auto) 10 ^3/uL (0-1.3) Differential Total Cells Counted 100.0 (100) Neutrophils % (Manual) 24 (37.0-80.0) Band Neutrophils % (Manual) 1 Lymphocytes % (Manual) 64 (10.0-50.0) Monocytes % (Manual) 7 (0-12) Eosinophils % (Manual) 2 (0-7) Basophils % (Manual) 0 (0.0-2.0) Metamyelocytes % (manual) 0 Myelocytes % (Manual) 0 Promyelocytes % (Manual) 0 Blast Cells % (Manual) 0 Reactive Lymphocytes 2 Platelet Estimate Adequate Red Blood Cell Morphology Normal Potassium Level 3.9 mmol/L (3.5-5.1) Sodium Level 142 mmol/L (136-145) Chloride Level 109 mmol/L (98-107) Carbon Dioxide Level 27 mmol/L (20-31) Anion Gap 6 (5-15) Blood Urea Nitrogen 13 mg/dL (9-23) Creatinine 0.69 mg/dL (0.550-1.02) Glomerular Filtration Rate Calc 87 mL/min (>90) BUN/Creatinine Ratio 18.8 (10.0-20.0) Serum Glucose 93 mg/dL (74-106) Calcium Level 8.8 mg/dL (8.7-10.4) Troponin I High Sensitivity 6 ng/L (</=34) Rouleaux Present Magnesium Level 1.9 mg/dL (1.6-2.6) Total Bilirubin 0.2 mg/dL (0.2-1.0) Aspartate Amino Transferase (AST) 42 U/L (13-40) Alanine Aminotransferase (ALT) 25 U/L (7-40) Alkaline Phosphatase 50 U/L (46-116) Total Protein 4.9 g/dL (5.7-8.2) Albumin 3.0 g/dL (3.2-4.8) Test 12/24/24 15:30 12/24/24 02:46 12/19/24 11:35 Urine Color Colorless (Yellow) Urine Clarity Clear (Clear) Urine pH 6.5 (5.0-9.0) Urine Specific [place] 1.006 (1.001-1.035) Urine Protein Negative (Negative) Urine Ketones Negative (Negative) Urine Blood Negative /uL (Negative) Urine Nitrite Negative (Negative) Urine Bilirubin Negative (Negative) Urine Urobilinogen Normal mg/dL (Negative) Urine Leukocyte Esterase 3+ /uL (Negative) Urine RBC 2 /hpf (0 - 4) Urine Microscopic WBC 16 /HPF (0-5) Urine Squamous Epithelial Cells Few /hpf (<5) Urine Amorphous Crystals Few /hpf (None Seen) Urine Bacteria Few /hpf (None Seen) Urine Glucose Normal mg/dL (Normal) Eosinophils (%) (Auto) 0.0 % (0.0-7.0) Eosinophils # (Auto) 0 10 ^3/uL (0-0.8) Basophils # (Auto) 0 10 ^3/uL (0-0.2) Nucleated Red Blood Cells 0.1 % Prothrombin Time 10.5 sec (9.3-11.8) Prothrombin Time INR 0.99 (0.9-1.15) Activated Partial Thromboplast Time 24.8 SEC (24.5-34.5) Urine WBC Clumps Present /hpf (None Seen) Urine Mucus Few (None Seen) Urine Yeast (Budding) Moderate /hpf (None Seen) Other Laboratory Tests 12/30/24 04:25 12/27/24 06:09 Brief Hx & Hospital Course: see dictated note Condition at Discharge: Good Final Diagnosis/Problems List right hip surgery Discharge Disposition: Home Discharge Instruct/Medications Diet: Regular Activity: No Restrictions, As Tolerated Follow Up/Referral: fu with pcp/ortho Medications: resume home meds script to pharmacy rest per ortho Scheduled Alendronate Sodium (Fosamax), 70 MG PO QWEEKLY, (Reported) Multiple Vitamin (Multivitamins), 1 TAB PO DAILY, (Reported) Potassium Chloride (Klor-Con M20), 20 MEQ PO BID, (Reported) Pravastatin Sodium (Pravachol Tablet), 1 TAB PO DAILY, (Reported) Miscellaneous Medications Tramadol Hcl (Tramadol Hcl), 50 MG PO, (Reported) Discharge Statement: "Patient was advised to return to the ER or call 911 if any headaches, dizziness, shortness of breath, chest pain, abdominal pain, bleeding, fevers, or worsening of medical condition. Patient was counseled about treatment plan, medications, possible side effects, patientverbalized understanding. All questions were answered to the best of my ability. This discharge took greater then 30 minutes in planning, reviewing documentation, counseling the patient, and discussing with other team members." ASSESSMENT ASSESSMENT Assessment right hip surgery Date of Service: Dec 30, 2024 Billing Provider: VANESA TURNER MD Common Visit Codes: [id number] DISCH DAY >30min VANESA TURNER MD Dec 30, 2024 10:39
[2024-12-30] MEDS ORDERED: CEFU250T68 PO (10:41)
--- NOTE | 2024-12-30 11:19 | DVHDS ---
DATE OF DISCHARGE: 12/30/2024 The patient is an 84-year-old lady who was admitted after she underwent surgery on the right hip for a revision surgery. She has history of hyperlipidemia, previous history of breast cancer, and osteoporosis. HOSPITAL COURSE: The patient became hypotensive post surgery. The patient had evidence of UTI. Her white count was elevated although she does have CLL. The patient was anemic and given 1 unit of blood transfusion. The patient was eventually weaned off pressors. She is currently doing well and will be discharged home to resume her home medications as well as to be on medications as per Orthopedics as well as cefuroxime 250 mg b.i.d. for five days. She will follow up with her primary and Orthopedics. FINAL DIAGNOSES: * Urinary tract infection with septic shock. * Anemia, status post transfusion. * Osteoporosis. * Hyperlipidemia. * History of breast cancer. * CLL. * Status post right hip surgery. The patient will also have home health for physical therapy and safety. Time spent in discharge planning and review of plan with the patient and nursing was 39 minutes. MD MERARY Martinez/SHER TID: [id number] RECEIPT: [id number]
[2024-12-30 13:00] VITALS: BP 134/82; PULSE 83; RESP 14; TEMP 98.4; O2SAT 94
== END 2024-12-30 16:10 | disposition home health service (06) | DRG 853 ==
LOC: SUR 08:07 → OVERFLOW 10:35 → ICU WEST 20:05 → CENTRAL 12-26 15:20 → TELE-CENTR 12-27 03:10
PROVIDERS: ADMIT Internal Medicine; ATTEND Internal Medicine
PROC: 0SP90JZ Removal of Synthetic Substitute from Right Hip Joint, Open Approach (ICD-10-PCS; 2024-12-23)
PROC: 0SR902Z Replacement of Right Hip Joint with Metal on Polyethylene Synthetic Substitute, Open Approach (ICD-10-PCS; principal; 2024-12-23 09:03)
PROC: 30233N1 Transfusion of Nonautologous Red Blood Cells into Peripheral Vein, Percutaneous Approach (ICD-10-PCS; 2024-12-24)
DX: A41.9 Sepsis, unspecified organism (principal); R65.21 Severe sepsis with septic shock; C91.10 Chronic lymphocytic leukemia of B-cell type not having achieved remission; N30.90 Cystitis, unspecified without hematuria; D64.9 Anemia, unspecified; T84.090A Other mechanical complication of internal right hip prosthesis, initial encounter; M81.0 Age-related osteoporosis without current pathological fracture; E78.5 Hyperlipidemia, unspecified; Y83.8 Other surgical procedures as the cause of abnormal reaction of the patient, or of later complication, without mention of misadventure at the time of the procedure; Z88.6 Allergy status to analgesic agent; Z88.0 Allergy status to penicillin; Z85.3 Personal history of malignant neoplasm of breast; Y92.89 Other specified places as the place of occurrence of the external cause
CPT/HCPCS: 36415; 71045; 72170; 80048; 80053; 81001; 83735; 84132; 84484; 85007; 85025; 85027; 85610; 85730; 86850; 86900; 86901; 86920; 87040; 87070; 87075; 87081; 87086; 93005; 97110; 97116; 97163; 97530; G0378; J0131; J0169; J0696; J1100; J1885; J2185; J2250; J2405; J2704; J3490

== ENCOUNTER 2025-01-09 09:53 | Outpatient (CLI) | payer OTHER ==
[~2025-01-09 09:53] MED LIST changes: +CEFU250T68 PO
[2025-01-09 10:56] LABS: Urine Protein, UAD TRACE (Negative); Urine WBC Clumps PRESENT /hpf (None Seen)
== END 2025-01-09 17:00 | disposition home or self-care (01) ==
LOC: LAB 09:53
PROVIDERS: ATTEND Internal Medicine
DX: N39.0 Urinary tract infection, site not specified (principal)
CPT/HCPCS: 81001; 87086

== ENCOUNTER 2025-01-28 12:47 | Outpatient (CLI) | payer OTHER ==
[2025-01-28 13:20] LABS: Hematocrit 35.1 % (36.0-46.0); Hemoglobin 11.5 g/dL (12.2-16.2); Mean Corpuscular Hemoglobin 30.3 pg (28.0-32.0); Mean Corpuscular Volume 92.1 fL (80.0-100.0)
[2025-01-28 13:41] LABS: Alanine Aminotransferase 12 U/L (7-40); Albumin 3.9 g/dL (3.2-4.8); Anion Gap 9 (5-15); BUN/Creatinine Ratio 23.0 (10.0-20.0); Blood Urea Nitrogen 20 mg/dL (9-23); Calcium 9.8 mg/dL (8.7-10.4); Carbon Dioxide 28 mmol/L (20-31); Chloride 106 mmol/L (98-107); Potassium 4.0 mmol/L (3.5-5.1); Sodium 143 mmol/L (136-145); Total Protein 6.5 g/dL (5.7-8.2)
[2025-01-28 13:45] LABS: Alkaline Phosphatase 141 U/L (46-116); Bilirubin, Total 0.2 mg/dL (0.2-1.0); Glucose 162 mg/dL (74-106)
[2025-01-28 13:57] LABS: Smudge Cells 3 /100 WBC; Total Cells Counted 100.0 (100)
== END 2025-01-28 17:00 | disposition home or self-care (01) ==
LOC: LAB 12:47
PROVIDERS: ATTEND Internal Medicine
DX: C91.10 Chronic lymphocytic leukemia of B-cell type not having achieved remission (principal); C50.919 Malignant neoplasm of unspecified site of unspecified female breast; R97.8 Other abnormal tumor markers; Z17.0 Estrogen receptor positive status [ER+]
CPT/HCPCS: 36415; 80053; 82306; 83615; 85007; 85027; 86300